=== PATIENT | male | born 1970 | race Caucasian/White ===

== ENCOUNTER 2024-02-05 07:38 | Day surgery (SDC) | payer OTHER, SELFPAY ==
[2024-01-14 11:45] VITALS: BMI 29.8
[2024-02-05 08:16] VITALS: BP 127/86; PULSE 82; RESP 20; TEMP 36.8; O2SAT 96
[2024-02-05] MEDS: LACTATED RINGERS 1,000 ML 150 ML IV CONT (08:18)
--- NOTE | 2024-02-05 08:32 | PM.HPGS ---
History of Present Illness History of Present Illness Consent: Risks, benefits, and alternatives have been discussed and questions answered. Patient agrees to proceed with procedure. Chief complaint: Neoplasm Screening Narrative: Jamie Solomon is a 53 year old male presents today for screening colonoscopy. Patient's current weight appetite and bowel movements are normal. Patient denies abdominal pain. He has had no bleeding. Family history contributory. Review of Systems Review of Systems: Review of Systems is noncontributory. PMFSH Family History Family History Mother Depression Family history of multiple sclerosis Hypertension Family history of elevated blood lipids Family history of diabetes mellitus in first degree relative Grandparent Diabetes mellitus Family history of malignant neoplasm of brain, Onset Age: 69 Father Hypertension Social History Social History Smoking status: Former smoker Second hand tobacco smoke exposure: No Smoking end date: 11/25/09 Additional smoking assessment comments: uses Nicorette gum Alcohol intake: current Drinks per week: 10 Substance use: current Substance use type: marijuana Other substance usage details: THC gummies Do You Feel Safe in your Home?: Yes Lack of Transportation: No Lack of Food: Never True Current Housing: I Have Housing Concerned About Future Housing: No Difficulty Paying Gas/Electric Bills: No Difficulty Paying for Meds: No Currently Unemployed: No Education: Trade/Vocational Certificate Difficulty w/ Childcare or Family Care: No Living arrangements: with family Occupation/Education: occupation 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 Gender identity (if verbalized by the patient): Male Meds Home Medications and Allergies Home Medications Medication Instructions Recorded Confirmed Type Nicorette 1 gum PO DIRECTED 10/20/19 02/05/24 History sildenafil (pulm.hypertension) 20 20 mg PO DAILY PRN sexual activity 12/20/23 02/05/24 Rx mg tablet #30 tabs zolpidem 6.25 mg tablet,extended 6.25 mg PO QHS #30 tabs 12/20/23 02/05/24 Rx release,multiphase Ambien 1 tab-cap PO DIRECTED 01/21/24 02/05/24 History Allergies Allergy/AdvReac Type Severity Reaction Status Date / Time No Known Allergies Allergy Verified 02/05/24 08:14 Vital Signs Vital Signs - 24 hr 02/05/24 08:16 Temperature 98.3 F Pulse Rate 82 Respiratory Rate 20 Blood Pressure 127/86 Pulse Oximetry 96 Oxygen Delivery Room Air Exam Narrative: Physical exam reveals patient to be alert. Vital signs stable. HEENT exam is unremarkable. Patient is anicteric. Lungs are clear to auscultation and percussion. Is without murmur or extra sounds. Abdomen bowel sounds are present soft nontender with no organomegaly. Digital external rectal exam is normal. Assessment and Plan Assessment and plan (1) Encounter for screening colonoscopy: Code(s): Z12.11 - Encounter for screening for malignant neoplasm of colon Status: Acute Assessment and Plan: Presents today for screening colonoscopy. He appears to be at average risk for colon polyps. Further recommendations may be given after endoscopy.
--- NOTE | 2024-02-05 09:13 | WPDANESEPPF ---
Anes - Initial Pre Proc Eval Procedure: Operation Date: 02/05/24 09:30 Proposed Procedures p Screening Colonoscopy - Antoni Ordaz MD Date/Time: 02/05/24 09:13 Surgeon: Antoni Ordaz MD Pre Op Diagnosis: Neoplasm Screening Patient Data Age: 53 Gender: M Height: 1.8 m Weight: 94.4 kg Last Vital Signs Temp 36.8 C 02/05/24 08:16 Pulse 82 02/05/24 08:16 Resp 20 02/05/24 08:16 BP 127/86 02/05/24 08:16 Pulse Ox 96 02/05/24 08:16 O2 Del Method Room Air 02/05/24 08:16 Allergies Allergy/AdvReac Type Severity Reaction Status Date / Time No Known Allergies Allergy Verified 02/05/24 08:14 Home Medications Medication Instructions Recorded Confirmed Type Nicorette 1 gum PO DIRECTED 10/20/19 02/05/24 History sildenafil (pulm.hypertension) 20 20 mg PO DAILY PRN sexual activity 12/20/23 02/05/24 Rx mg tablet #30 tabs zolpidem 6.25 mg tablet,extended 6.25 mg PO QHS #30 tabs 12/20/23 02/05/24 Rx release,multiphase Ambien 1 tab-cap PO DIRECTED 01/21/24 02/05/24 History Patient hx anesthesia problems: none Family hx anesthesia problems: none Results Review: All pre-operative results and documents have been reviewed as part of the pre-operative evaluation. PMFSH Family History Family History Mother Depression Family history of multiple sclerosis Hypertension Family history of elevated blood lipids Family history of diabetes mellitus in first degree relative Grandparent Diabetes mellitus Family history of malignant neoplasm of brain, Onset Age: 69 Father Hypertension Social History Social History Smoking status: Former smoker Second hand tobacco smoke exposure: No Smoking end date: 11/25/09 Additional smoking assessment comments: uses Nicorette gum Alcohol intake: current Drinks per week: 10 Substance use: current Substance use type: marijuana Other substance usage details: THC gummies Do You Feel Safe in your Home?: Yes Lack of Transportation: No Lack of Food: Never True Current Housing: I Have Housing Concerned About Future Housing: No Difficulty Paying Gas/Electric Bills: No Difficulty Paying for Meds: No Currently Unemployed: No Education: Trade/Vocational Certificate Difficulty w/ Childcare or Family Care: No Living arrangements: with family 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/Education: occupation 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 Informed Consent: The patient's anesthetic plan and its attendant risks and benefits were discussed with the patient/family/POA. Questions were solicited and answers provided to the satisfaction of the patient/family/POA.
[2024-02-05 09:34] VITALS: BP 137/92; PULSE 77; RESP 14; O2SAT 97
[2024-02-05 09:44] VITALS: BP 119/77; PULSE 73; RESP 20; O2SAT 99
[2024-02-05 09:54] VITALS: BP 121/85; PULSE 68; RESP 20; O2SAT 99
--- NOTE | 2024-02-05 11:03 | WPDANESPN ---
Anes - Prog Note Post-Op Date/Time: 02/05/24 11:03 Cardiovascular status: normal Respiratory status: normal Airway patency: baseline Mental status: baseline Post-Op hydration status: normal Vital Signs: Last Vital Signs Temp 36.8 C 02/05/24 08:16 Pulse 68 02/05/24 09:54 Resp 20 02/05/24 09:54 BP 121/85 02/05/24 09:54 Pulse Ox 99 02/05/24 09:54 O2 Del Method Room Air 02/05/24 09:54 Pain Score (VAS): 0 I/O: Intake & Output 02/04/24 02/05/24 02/05/24 23:59 07:59 15:59 Intake Total 500 Balance 500 Patient Feedback: Patient satisfied with anesthetic care.
== END 2024-02-05 10:05 | disposition home or self-care (01) ==
PROVIDERS: PCP Family Medicine; Visit Provider Internal Medicine Gastroenterology
PROC: 0DJD8ZZ Inspection of Lower Intestinal Tract, Via Natural or Artificial Opening Endoscopic (ICD-10-PCS; CPT 45378; principal; 2024-02-05 09:30)
DX: Z12.11 Encounter for screening for malignant neoplasm of colon (principal); D12.5 Benign neoplasm of sigmoid colon; K57.30 Diverticulosis of large intestine without perforation or abscess without bleeding
CPT/HCPCS: 45385

== ENCOUNTER 2024-02-05 07:42 | Outpatient (NON) | payer OTHER, SELFPAY | END 2024-02-05 07:43 | disposition home or self-care (01) | LOC: ANHLAB 02-06 07:43 | PROVIDERS: PCP Family Medicine; Visit Provider Internal Medicine Gastroenterology | DX: Z12.11 Encounter for screening for malignant neoplasm of colon (principal); D12.5 Benign neoplasm of sigmoid colon | CPT/HCPCS: 88305 ==

== ENCOUNTER 2024-11-19 13:04 | Inpatient (IN) | payer OTHER, SELFPAY ==
--- NOTE | ~2024-11-19 | CT_ITS ---
CT abdomen pelvis wo con Ordering provider: Soniya Cunningham MD History: 54 years Male with . abdomen pain; febrile . Comparison: November 21, 2024 Technique: CT abdomen and pelvis February the IV and without oral contrast. Automated exposure contro l and iterative reconstruction technique were employed. The dose-length product was 659.34 mGy-cm. Findings: VISUALIZED LOWER CHEST: Dependent atelectatic changes. UPPER ABDOMINAL ORGANS: Liver: Normal. Minimal Fluid around the liver. Gallbladder: Normal. Spleen: Normal. Stomach/duodenum: Normal. Pancreas: Normal. Adrenals: Normal. Kidneys: Left parapelvic cyst is seen in the left side measuring 2.3 cm. PELVIC ORGANS: The bladder is underfilled with thickened wall. Evaluation for cystitis advised.. BOWEL AND MESENTERY: Colon: sigmoid diverticulitis is noted with surrounding fat stranding. Previously seen abscess is devante ined in the interval with drainage tubes seen in the left side of the abdomen. Tiny air bubbles are s een in the upper abdomen in the area of the descending colon. fat stranding is seen in the left parac olic gutter area.. Normal appendix. Small Bowel: Dilated small bowel loops is seen suggestive of ileus. Mechanical obstruction is less li manjit. Follow-up advised. Peritoneum/mesentery: . No mesenteric lymphadenopathy. RETROPERITONEUM: Mild atheromatous disease of the abdominal aorta. No retroperitoneal lymphadenopat hy. MUSCULOSKELETAL: Superficial soft tissues: The superficial soft tissues are normal. Bones: Age appropriate degenerative changes of the spine. IMPRESSION: 1. Sigmoid diverticulitis with previously seen abscesses in the area. Left drainage catheter is seen . Minimal fat stranding in the left paracolic gutter. Early peritonitis should be considered. Clinica l correlation advised. 2. Minimal air in the abdomen with fluid around the liver. 3. Dilated small bowel loops suggestive of ileus. Follow-up advised. Reviewed, dictated and finalized at location A. ATTENDANT IMPRESSION: 1. Sigmoid diverticulitis with previously seen abscesses in the area. Left devante inage catheter is seen. Minimal fat stranding in the left paracolic gutter. Ear ly peritonitis should be considered. Clinical correlation advised. 2. Minimal air in the abdomen with fluid around the liver. 3. Dilated small bowel loops suggestive of ileus. Follow-up advised.
--- NOTE | ~2024-11-19 | CT_ITS ---
EXAMINATION: CT guide absc cath placement DATE: 11/23/2024 14:11 INDICATION: Sigmoid diverticulitis with abscess. TECHNIQUE: The procedure including the risks, benefits, and alternatives was discussed with the patie nt. Risks discussed included bleeding and infection. The patient understood the risks and benefits an d agreed to proceed. The skin overlying the abdomen was prepped and draped in usual sterile fashion. Anesthetic was administered with 1% lidocaine subcutaneously. Moderate sedation was achieved with 1 mg Versed IV and 100 mcg fentanyl IV. An 18 gauge trochar needle was inserted into the perisigmoid ab scess with CT guidance. The needle was exchanged over a wire for 5 Lao, 7 Lao, and 9 Lao dil ators and then for an 8.5 Lao pigtail catheter. The catheter was stitched to the skin, and a steri le dressing was applied. The mA was adjusted according to patient size. Iterative reconstruction tech nique was employed. The dose-length product was 307.94 mGy-cm. There were no immediate complications. FINDINGS: CT images demonstrate the catheter within the perisigmoid abscess. 5 mL fluid was aspirated for testing. IMPRESSION: 1. Successful CT-guided perisigmoid abscess drainage. 2. 5 mL of opaque, burks fluid was sent for aerobic and anaerobic cultures. Reviewed, dictated and finalized at location A. NTORY CONTROL PLANNER
--- NOTE | ~2024-11-19 | XR_ITS ---
XR abdomen gastric tube insert Ordering provider: Jerson Moran MD History: . NG tube placement . Comparison: None. FINDINGS/impression: BOWEL: Nasogastric tube with the tip in the fundus of the stomach. Nonobstructive bowel gas pattern. Postoperative changes in the abdomen. Reviewed, dictated and finalized at location A. L BONDING PRESS OPERATOR
--- NOTE | ~2024-11-19 | XR_ITS ---
EXAMINATION: XR chest PICC line DATE: 11/27/2024 12:10 INDICATION: Central line placement. TECHNIQUE: A single frontal view of the chest was obtained. COMPARISON: Chest single view 11/24/2024, CT abdomen and pelvis 11/23/2024 FINDINGS: There are airspace opacities in the lower lung zones. No pleural effusion or pneumothorax. The heart size is normal. A right upper extremity peripherally inserted central venous catheter (PICC ) is seen with tip at the superior cavoatrial junction. The nasogastric tube tip is beyond the inferi or margin of the radiograph, but at least to the stomach. IMPRESSION: 1. PICC tip at the superior cavoatrial junction. 2. Worsened airspace opacities in the lower lung zones, likely atelectasis. Reviewed, dictated and finalized at location A. T COUNTER CLERK
--- NOTE | ~2024-11-19 | CT_ITS ---
EXAMINATION: CT abdomen pelvis w con DATE: 11/21/2024 23:53 INDICATION: Recurrent lower abdominal pain. Diverticulitis. TECHNIQUE: Computed tomography (CT) of the abdomen and pelvis was performed with 100 mL Omnipaque-350 intravenous contrast. Automated exposure control and iterative reconstruction technique were employe d. The dose-length product was 615.98 mGy-cm. COMPARISON: 11/19/24 FINDINGS: Mild dependent atelectasis in bilateral lower lobes. Heart size is normal. No pericardial or pleural effusion. There are some wall thickening in the distal esophagus suggestive of esophagitis. Liver, ga llbladder, spleen, pancreas and bilateral adrenal glands are normal. Bilateral renal cysts the larges t on the left measuring 2.7 cm. There is persistent wall thickening centered at the mid sigmoid colon . There is prominent inflammatory stranding surrounding the segment of sigmoid colon as well as immed iately adjacent 5.1 x 2.6 cm abscess cavity containing primarily gas but small amount of dependently layering fluid. Small amount of additional nonloculated gas tracking within the more proximal sigmoid mesentery. There is additional small amount of nonloculated free fluid in the deep pelvis. There is fluid scattered throughout nondilated small bowel suggestive of a reactive ileus. Additional fluid sc attered throughout the colon consistent with diarrhea. Decompressed bladder is unremarkable. No patho logically enlarged abdominal or pelvic lymphadenopathy. Moderate to severe lumbar spondylosis. IMPRESSION: 1. Perforated sigmoid diverticulitis gas and fluid within a 5.1 x 2.6 cm increasingly organized-appea ring abscess within the immediately adjacent sigmoid mesentery. Reviewed, dictated and finalized at location A. LE LINING STITCHER IMPRESSION: 1. Perforated sigmoid diverticulitis gas and fluid within a 5.1 x 2.6 cm increa singly organized-appearing abscess within the immediately adjacent sigmoid mese ntery.
--- NOTE | ~2024-11-19 | XR_ITS ---
Upright portable view of the abdomen Clinical history: NG tube placement Findings: NG tube in satisfactory position. Bowel gas pattern is nonspecific. No evidence for obstruc tion or free air. No abnormal mass lesion or calcification is seen. Osseous structures are intact. Impression: NG tube in satisfactory position. Reviewed, dictated and finalized at [facility]. LACTATION Impression: NG tube in satisfactory position.
--- NOTE | ~2024-11-19 | XR_ITS ---
Portable chest x-ray Comparison: None Clinical History: Preoperative clearance Findings: Lungs are clear, without focal consolidation or pleural effusion. There is linear scarring left lung base. Cardiomediastinal silhouette is unremarkable. Bones and soft tissues are unremarkab le. Impression: Linear scarring left lung base, otherwise clear lungs. Reviewed, dictated and finalized at location . D WING AIRCRAFT CREW CHIEF Impression: Linear scarring left lung base, otherwise clear lungs.
--- NOTE | ~2024-11-19 | CT_ITS ---
EXAMINATION: CT abdomen pelvis w con DATE: 11/19/2024 16:50 INDICATION: Lower abdominal pain TECHNIQUE: Computed tomography (CT) of the abdomen and pelvis was performed with 100 mL Omnipaque-350 intravenous contrast. Automated exposure control and iterative reconstruction technique were employe d. The dose-length product was 552.12 mGy-cm. COMPARISON: 08/29/2018 FINDINGS: Lung bases are clear. Heart size is normal. No pericardial or pleural effusion. Liver, gallbladder, s pleen, pancreas and bilateral adrenal glands are normal. 1.4 cm intraparenchymal cyst at the right ki dney and 2.8 cm parapelvic cyst at the left kidney. There is inflammatory stranding surrounding a 4.8 x 2.0 cm loculated collection of gas within the sigmoid mesentery with additional smaller foci of ga s extending throughout the mesenteric fat the more proximal sigmoid and distal descending colon. Ther e is wall thickening at the immediately more caudal sigmoid colon where there is a small region of fl uid signal suggesting a diverticula perforated diverticulitis. Remainder of the bowels including the appendix are normal. Bladder is normal. No fluid collections to suggest abscess or other nonloculated free intraperitoneal gas or fluid. No pathologically enlarged abdominal or pelvic lymphadenopathy. S mall fat-containing umbilical hernia. Moderate to severe lumbar spondylosis. IMPRESSION: 1. Likely perforated sigmoid diverticulitis with loculated free intraluminal gas within the sigmoid a nd distal descending colon mesentery. No abscess. Reviewed, dictated and finalized at location B. ISSIONED SALES ASSOCIATE IMPRESSION: 1. Likely perforated sigmoid diverticulitis with loculated free intraluminal ga s within the sigmoid and distal descending colon mesentery. No abscess.
--- NOTE | ~2024-11-19 | XR_ITS ---
Upright portable view of the abdomen Clinical history: NG tube placement Findings: NG tube in satisfactory position. Bowel gas pattern is nonspecific. No evidence for obstruc tion or free air. No abnormal mass lesion or calcification is seen. Osseous structures are intact. Impression: NG tube in satisfactory position. Reviewed, dictated and finalized at [facility]. NGING MACHINE TENDER Impression: NG tube in satisfactory position.
[2024-11-19 13:05] VITALS: BP 127/92; PULSE 100; RESP 20; TEMP 36.2; O2SAT 100
--- NOTE | 2024-11-19 14:24 | ED_ITS ---
HPI - Abdominal Pain General Chief Complaint: Abdominal Pain Stated Complaint: abd pain Time Seen by Provider: 11/19/24 14:24 Focused HPI: This is a 54 year old male that presents to the ER for abdominal pain and constipation. Ongoing over the last several days. Pain is in the mid lower abdomen. Tried taking laxatives without improvement. Is unable to eat due to pain. GENERAL: Well-appearing, well-nourished, and in no acute distress. HEAD: Normocephalic, atraumatic. CHEST: Clear to auscultation. ?No respiratory distress. HEART: Regular rate and rhythm.? NEURO: ?Alert and oriented x3. Patient screened in triage and initial orders placed.? ?Additional care and disposition to be based upon?diagnostic testing and treatment. Related Data Home Medications ?Medication ?Instructions ?Recorded ?Confirmed ?Last Taken ?Type Nicorette 1 gum PO DIRECTED 10/20/19 11/19/24 Unknown History Allergies Allergy/AdvReac Type Severity Reaction Status Date / Time No Known Allergies Allergy Verified 02/05/24 08:14 Review of Systems 2 Review of Systems: CONSTITUTIONAL: Denies fever GASTROINTESTINAL: Reports abdominal pain, nausea. Denies vomiting All systems reviewed & are unremarkable except as noted in HPI and below PMFSH Past Medical History Medical History (Updated 11/23/24 @ 21:18 by Leticia Gunter PA-C) Chronic insomnia Erectile dysfunction Family History Family History Mother Depression Family history of multiple sclerosis Hypertension Family history of elevated blood lipids Family history of diabetes mellitus in first degree relative Grandparent Diabetes mellitus Family history of malignant neoplasm of brain, Onset Age: 69 Father Hypertension Social History Social History Smoking status: Never smoker Second hand tobacco smoke exposure: No Smoking end date: 11/25/09 Additional smoking assessment comments: uses Nicorette gum Alcohol intake: current Drinks per week: 8 Substance use: never Substance use type: marijuana Other substance usage details: THC gummies Do You Feel Safe in your Home?: Yes Lack of Transportation: No Lack of Food: Never True Current Housing: I Have Housing Concerned About Future Housing: No Difficulty Paying Gas/Electric Bills: No Difficulty Paying for Meds: No Currently Unemployed: No Education: Trade/Vocational Certificate Difficulty w/ Childcare or Family Care: No Living arrangements: with family Occupation/Education: occupation 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 HEAD: Normocephalic, atraumatic. EYES: EOMI. CHEST: Clear to auscultation. No respiratory distress. No wheezes rales or rhonchi HEART: Regular rate and rhythm. No murmur heard. Normal peripheral pulses. ABDOMEN: Soft, nondistended, normal active bowel sounds. Tender to palpation throughout the abdomen, without guarding EXTREMITIES: Normal range of motion. No edema. SKIN: Warm, dry, no rash. NEURO: No focal deficits. Alert and oriented x3. PSYCH: Normal mood and affect Course Course Emergency Course: patient updated on his workup and need for admission Consultations Consultation #1: Spoke with Dr. Moran about patient and workup. Patient will be NPO except ice chips. Continue IV fluids, antibiotics, pain medication as needed Vital Signs Vital signs: Vital Signs Temperature 97.2 F L 11/19/24 13:05 Pulse Rate 100 11/19/24 13:05 Respiratory Rate 20 11/19/24 13:05 Blood Pressure 127/92 H 11/19/24 13:05 Pulse Oximetry 100 11/19/24 13:05 Oxygen Delivery Room Air 11/19/24 13:05 Temperature 102.5 F H 11/23/24 19:57 Pulse Rate 90 11/23/24 18:41 Respiratory Rate 16 11/23/24 18:41 Blood Pressure 140/82 11/23/24 18:41 Pulse Oximetry 95 11/23/24 18:41 Oxygen Delivery Room Air 11/23/24 14:15 Oxygen Flow Rate 2 11/23/24 14:10 MDM - Abdominal Pain MDM Narrative Medical decision making narrative: Patient presents the emergency department for abdominal pain ongoing over the last couple of days. He is afebrile and nontoxic appearing. His vitals are stable. CBC with leukocytosis to 27.7. Metabolic panel without concerning findings. Lactic acid is not elevated. CT abdomen and pelvis shows diverticulitis with perforation. Spoke with Dr. Moran about patient and workup. Patient will be NPO except ice chips. Continue IV fluids, antibiotics, pain medication as needed Differential Diagnosis Differential diagnosis: Likely calculus of kidney, constipation and diverticulitis Lab Data Attestation: I reviewed the patient's lab results. 11/23/24 20:31 11/23/24 20:31 Labs: Lab Results 11/19/24 11/19/24 11/19/24 Range/Units 14:59 15:14 17:21 WBC 27.7 H (4.5-10.0) K/mm3 RBC 5.67 (4.6-6.20) M/mm3 Hgb 16.8 (14.0-18.0) g/dL Hct 49.5 (42.0-52.0) % MCV 87.3 (80-100) fl MCH 29.6 (26-34) pg MCHC 33.9 (32-36) g/dl RDW 14.0 (11.5-14.5) % Plt Count 159 (150-375) k/mm3 MPV 11.2 H (7.4-10.4) fl Immature Gran % (Auto) 0.2 (0-0.5) % Neut % (Auto) 22.2 L (45.5-73.1) % Lymph % (Auto) 74.3 H (18.3-44.2) % [place] % (Auto) 2.3 L (2.6-8.5) % Eos % (Auto) 0.8 (0-4.4) % Baso % (Auto) 0.2 (0.2-1.2) % Lymph # (Auto) 20.57 H (0.9-3.2) K/mm3 [place] # (Auto) 0.6 (0.1-0.6) K/mm3 Eos # (Auto) 0.2 (0-0.3) K/mm3 Baso # (Auto) 0.1 (0.0-0.1) K/mm3 Abs Immat Gran (auto) 0.06 H (0.00-0.031) K/mm3 Absolute Neuts (auto) 6.2 (1.3-6.7) K/mm3 Absolute Nucleated RBC 0.000 (0.0-0.012) K/mm3 Nucleated RBC % 0.0 (0.0-0.2) % Smudge Cells Present Platelet Estimate Adequate (Adequate) Anisocytosis 1+ Tear Drop Cells 1+ Schistocytes None seen Sodium 135 L (137-145) mmol/L Potassium 3.5 (3.4-5.0) mmol/L Chloride 103 (98-107) mmol/L Carbon Dioxide 26 (22-30) mmol/L Anion Gap 6 (4-12) mmol/L BUN 19 (9-20) mg/dL Creatinine 1.20 (0.7-1.3) mg/dL Estim Creat Clear Calc 68 ml/min Estimated GFR > 60 (59 - ) Glucose 125 H (65-110) mg/dL Lactic Acid 1.6 (0.7-2.0) mmol/L Calcium 9.6 (8.4-10.2) mg/dL Total Bilirubin 1.3 (0.2-1.3) mg/dL AST 39 (17-59) U/L ALT 39 (6-50) U/L Alkaline Phosphatase 87 (38-126) U/L Total Protein 8.0 (6.3-8.2) g/dL Albumin 4.5 (3.5-5.1) g/dL Lipase 32 (23-300) U/L Urine Color Dark yellow (Yellow) Urine Appearance Clear (Clear) Urine pH 5.5 (5.0-9.0) Ur Specific [place] 1.033 (1.001-1.035) Urine Protein 2+ H (Negative) mg/dL Urine Glucose (UA) Trace H (Negative) mg/dL Urine Ketones 1+ H (Negative) mg/dL Ur Blood (Man) Trace (Negative) Urine Nitrate Negative (Negative) Urine Bilirubin 1+ H (Negative) Urine Urobilinogen 1.0 (<2.0) mg/dL Add Ur Microanalysis Reviewed Leukocyte Esterase Rfl Negative (Negative) MAHSA/UL Urine RBC 0-2 (0-2) /hpf Urine WBC 0-5 (0-3) /hpf Ur Squamous Epith Cells Occasional (Few) /hpf Urine Bacteria None seen /hpf Urine Casts 3-5 Imaging Data Radiologist's impression: ITS Impressions Catheter Placement CT 11/23/24 14:32 IMPRESSION: 1. Successful CT-guided perisigmoid abscess drainage. 2. 5 mL of opaque, burks fluid was sent for aerobic and anaerobic cultures. Abdomen/Pelvis CT 11/23/24 19:27 IMPRESSION: 1. Sigmoid diverticulitis with previously seen abscesses in the area. Left drainage catheter is seen. Minimal fat stranding in the left paracolic gutter. Early peritonitis should be considered. Clinical correlation advised. 2. Minimal air in the abdomen with fluid around the liver. 3. Dilated small bowel loops suggestive of ileus. Follow-up advised. Critical Care Time Critical Care Time Critical Care Time: No Discharge Plan Discharge Clinical Impression: Diverticulitis Patient Disposition: Still a Patient Condition: Serious
[2024-11-19 15:14] LABS: Basophils Absolute Auto 0.1 K/mm3 (0.0-0.1); Basophils Percent Auto 0.2 % (0.2-1.2); Eosinophils Absolute Auto 0.2 K/mm3 (0-0.3); Eosinophils Percent Auto 0.8 % (0-4.4); Hematocrit 49.5 % (42.0-52.0); Hemoglobin 16.8 g/dL (14.0-18.0); Immature Granulocyte Absolute 0.06 K/mm3 (0.00-0.031); Immature Granulocyte Percent A 0.2 % (0-0.5); Lymphocytes Absolute Auto 20.57 K/mm3 (0.9-3.2); Lymphocytes Percent Auto 74.3 % (18.3-44.2); Mean Corpuscular HGB Conc 33.9 g/dl (32-36); Mean Corpuscular Hemoglobin 29.6 pg (26-34); Mean Corpuscular Volume 87.3 fl (80-100); Mean Platelet Volume 11.2 fl (7.4-10.4); Monocytes Absolute Auto 0.6 K/mm3 (0.1-0.6); Monocytes Percent Auto 2.3 % (2.6-8.5); Neutrophils Absolute Auto 6.2 K/mm3 (1.3-6.7); Neutrophils Percent Auto 22.2 % (45.5-73.1); Platelet Count Result 159 k/mm3 (150-375); Red Blood Count 5.67 M/mm3 (4.6-6.20); White Blood Count 27.7 K/mm3 (4.5-10.0)
[2024-11-19 15:23] LABS: Alanine Aminotransferase 39 U/L (6-50); Albumin Level 4.5 g/dL (3.5-5.1); Alkaline Phosphatase 87 U/L (38-126); Anion Gap 6 mmol/L (4-12); Aspartate Amino Transferase 39 U/L (17-59); Bilirubin,Total 1.3 mg/dL (0.2-1.3); Blood Urea Nitrogen 19 mg/dL (9-20); Calcium 9.6 mg/dL (8.4-10.2); Carbon Dioxide 26 mmol/L (22-30); Chloride 103 mmol/L (98-107); Estimated CRCL calculation 68 ml/min; Estimated Glomerular Filt Rate > 60; Glucose 125 mg/dL (65-110); Lipase 32 U/L (23-300); Potassium 3.5 mmol/L (3.4-5.0); Sodium 135 mmol/L (137-145)
[2024-11-19 15:47] LABS: Anisocytosis 1+; Platelet Estimate Adequate (Adequate); Schistocytes None Seen; Smudge Cells PRESENT; Tear Drop Cells 1+
[2024-11-19 16:02] LABS: Bacteria Urine None Seen /hpf; Need Manual Microscopic Reviewed; RBC Urine 0-2 /hpf (0-2); Squamous Epithelial Cell Urine Occasional /hpf (Few); WBC Urine 0-5 /hpf (0-3)
[2024-11-19 16:12] LABS: Add Urine Microscopic? YES; Appearance Urine Clear (Clear); Bilirubin Urine 1+ (Negative); Blood Urine Trace (Negative); Color Urine Dark Yellow (Yellow); Glucose Urine UA Trace mg/dL (Negative); Ketones Urine 1+ mg/dL (Negative); Leukocyte Esterase Ur Negative LEU/UL (Negative); Nitrate Urine Negative (Negative); Protein Urine 2+ mg/dL (Negative); Specific Grav Ur 1.033 (1.001-1.035); pH Urine 5.5 (5.0-9.0)
[2024-11-19 17:10] VITALS: BP 147/97; PULSE 98; RESP 18; O2SAT 99
[2024-11-19] MEDS: PIPERACILLN/TAZ 3.375GM/NS50ML 3.375 GM/50 ML BAG IVPB (17:30)
[2024-11-19 17:33] VITALS: BP 141/90; PULSE 98; RESP 19; O2SAT 98
[2024-11-19 17:38] LABS: Lactic Acid Reflex 1.6 mmol/L (0.7-2.0)
[2024-11-19] MEDS: SODIUM CHLORIDE 0.9% IV 1,000 ML 125 ML IV CONT (17:47)
[2024-11-19 18:53] VITALS: BP 137/92; PULSE 94; RESP 16; TEMP 36.8; O2SAT 97
[2024-11-19 18:54] VITALS: BMI 27.5
--- NOTE | 2024-11-19 19:17 | PM.IMHP ---
H&P: HPI History of Present Illness Date/Time: 11/19/24 19:17 Chief Complaint: Abdominal pain Narrative: Patient is a 54-year-old man who had been previously very healthy. He has never had any abdominal surgery. He had a colonoscopy about 8 months ago which showed mild diverticulosis of the sigmoid colon and a pedunculated tubular adenoma that was removed in the sigmoid colon. Three days ago, he started having some crampy abdominal pain in the umbilical area and just below the umbilicus. He took some laxatives and had a bowel movement. He felt better but the pain did not go away. After eating 2 days later the pain recurred. He again took some laxatives and had a bowel movement. The pain resolved. The pain has not come back but the patient feels that eating causes the pain and he has not eat at all today. He came to the emergency room because when he eats he gets this lower mid abdominal pain. He was seen in the emergency room and found to have a white blood cell count of 27,700. He had a CT scan of the abdomen and pelvis which showed probable acute diverticulitis with a 4.8 cm loculated pocket of air in the sigmoid mesentery. There were some other smaller loculations of air in the mesentery as well. As mentioned before, patient does not have abdominal pain at all. He is admitted now with diverticulitis with perforation. Review of Systems Review of Systems: All systems reviewed & are unremarkable except as noted in HPI and below (HPI) [facility] Past Medical History Medical History (Updated 11/19/24 @ 19:35 by Jerson Moran MD) Chronic insomnia Erectile dysfunction Family History Family History Mother Depression Family history of multiple sclerosis Hypertension Family history of elevated blood lipids Family history of diabetes mellitus in first degree relative Grandparent Diabetes mellitus Family history of malignant neoplasm of brain, Onset Age: 69 Father Hypertension Social History Social History Smoking status: Former smoker Second hand tobacco smoke exposure: No Smoking end date: 11/25/09 Additional smoking assessment comments: uses Nicorette gum Alcohol intake: current Drinks per week: 10 Substance use: current Substance use type: marijuana Other substance usage details: THC gummies Do You Feel Safe in your Home?: Yes Lack of Transportation: No Lack of Food: Never True Current Housing: I Have Housing Concerned About Future Housing: No Difficulty Paying Gas/Electric Bills: No Difficulty Paying for Meds: No Currently Unemployed: No Education: Trade/Vocational Certificate Difficulty w/ Childcare or Family Care: No Living arrangements: with family 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/Education: 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 Gender identity (if verbalized by the patient): Male Meds Home Medications and Allergies Home Medications ?Medication ?Instructions ?Recorded ?Confirmed ?Type Nicorette 1 gum PO DIRECTED 10/20/19 02/05/24 History sildenafil (pulm.hypertension) 20 20 mg PO DAILY PRN sexual activity 12/20/23 02/05/24 Rx mg tablet #30 tabs zolpidem 6.25 mg tablet,extended 6.25 mg PO QHS #30 tabs 12/20/23 02/05/24 Rx release,multiphase Ambien 1 tab-cap PO DIRECTED 01/21/24 02/05/24 History Allergies Allergy/AdvReac Type Severity Reaction Status Date / Time No Known Allergies Allergy Verified 02/05/24 08:14 Vital Signs Vital Signs - 24 hr 11/19/24 13:05 11/19/24 17:10 11/19/24 17:33 Temperature 36.2 C L Pulse Rate 100 98 98 Respiratory Rate 20 18 19 Blood Pressure 127/92 H 147/97 H 141/90 H Pulse Oximetry 100 99 98 Oxygen Delivery Room Air 11/19/24 18:53 Temperature 36.8 C Pulse Rate 94 Respiratory Rate 16 Blood Pressure 137/92 H Pulse Oximetry 97 Oxygen Delivery Exam Const: General: comfortable, no acute distress, alert and awake HENMT: Head: normocephalic and atraumatic Mouth: Yes Normal oral and palatal mucosa present Eyes: Conjunctivae: conjunctivae normal Pupils: Equal, round and reactive pupils present EOM: EOMs intact bilaterally Neck: Neck: normal visual inspection, no lymphadenopathy and nontender Resp: Effort & Inspection: normal respiratory effort Auscultation: clear to auscultation bilaterally Cardio: Rate: regular rate Rhythm: regular rhythm Heart sounds: no gallops, no murmurs and no rubs GI: Inspection: no abdominal wall ecchymosis, non-distended, scaphoid, no scars and visible herniation (Small umbilical) GI Palp: Yes Soft to palpation, Yes Tenderness to palpation present (GI) (Left lower quadrant and suprapubic with guarding), Yes Guarding due to palpation present (GI), No Hepatomegaly present, No Splenomegaly present and Yes Hernia present umbilical < 3 cm (Small and non reducible) Skin: Lesions: no lesions Rashes: no rashes Neuro: General: no focal motor deficits and CN's II-XI intact bilaterally Cranial nerves: Yes Equal, round and reactive pupils present, Yes Bilaterally intact EOM present, Yes facial symmetry and Yes Midline tongue present Speech: normal speech Motor exam (neuro): 5/5 motor strength present throughout and Motor abnormalities not present Extrem: General: no clubbing, cyanosis or edema and edema Psych: Affect: normal affect Thought process: Normal thought process present Insight: Good insight present (Psych) H&P: Results Labs Labs: Short CBC 11/19/24 Range/Units 14:59 WBC 27.7 H (4.5-10.0) K/mm3 Hgb 16.8 (14.0-18.0) g/dL Hct 49.5 (42.0-52.0) % Plt Count 159 (150-375) k/mm3 BMP 11/19/24 14:59 Sodium 135 L Potassium 3.5 Chloride 103 Carbon Dioxide 26 BUN 19 Creatinine 1.20 Glucose 125 H Calcium 9.6 Liver Function 11/19/24 Range/Units 14:59 Total Bilirubin 1.3 (0.2-1.3) mg/dL AST 39 (17-59) U/L ALT 39 (6-50) U/L Alkaline Phosphatase 87 (38-126) U/L Albumin 4.5 (3.5-5.1) g/dL Urine 11/19/24 Range/Units 15:14 Urine Color Dark yellow (Yellow) Urine Appearance Clear (Clear) Urine pH 5.5 (5.0-9.0) Ur Specific [place] 1.033 (1.001-1.035) Urine Protein 2+ H (Negative) mg/dL Urine Glucose (UA) Trace H (Negative) mg/dL Imaging CT scan - abdomen: Attestation: I personally reviewed and interpreted this imaging study as follows: (CT scan abdomen and pelvis) My impression: Diverticulitis with perforation, mesenteric pockets of air Radiologist's impression: Same Assessment and Plan Assessment and plan (1) Diverticulitis of large intestine with perforation: Qualifiers: Diverticulitis bleeding: without bleeding Qualified Code(s): K57.20 - Diverticulitis of large intestine with perforation and abscess without bleeding Code(s): K57.20 - Diverticulitis of large intestine with perforation and abscess without bleeding Status: Acute Assessment and Plan: Patient pain-free at present but extremely tender with guarding. Will admit for IV Zosyn antibiotics and bowel rest. He can have meds with sips and a few ice chips as well. P.r.n. analgesics. Follow serial abdominal exam and labs. He had a negative colonoscopy last January. If this resolves without complications, he probably does not need delayed elective sigmoidectomy. Hopefully, no acute surgery will be needed either.
[2024-11-19 19:22] VITALS: BMI 27.5
[2024-11-19 20:30] VITALS: BP 127/69; PULSE 83; RESP 20; TEMP 37.4; O2SAT 98
--- NOTE | 2024-11-19 21:11 | ADMGEN ---
This patient, Jamie Solomon, was admitted to [facility] Surg Room 302-01. Patient/family oriented to hospital policies and general routines including ID bracelet, bed and alarms, visiting hours, pain management, procedures, bathroom and other care routines, personal items, smoking policy, room service/diet, and visiting hours. Information on how to activate the Rapid Response Team has been discussed. Patient/Family are encouraged to report perceived risks to care and to ask questions if they do not understand what they are told or what they should do.
[2024-11-19] MEDS: traZODone HCL 50 MG TABLET PO (21:57)
[2024-11-20] MEDS: PIPERACILLN/TAZ 3.375GM/NS50ML 3.375 GM/50 ML BAG IVPB ×5 (00:18→23:13)
[2024-11-20] MEDS: SODIUM CHLORIDE 0.9% IV 1,000 ML 125 ML IV CONT ×3 (01:50→18:05)
[2024-11-20 04:45] VITALS: BP 117/75; PULSE 85; RESP 18; TEMP 36.3; O2SAT 98
[2024-11-20 07:53] LABS: Hematocrit 42.6 % (42.0-52.0); Hemoglobin 14.3 g/dL (14.0-18.0); Mean Corpuscular HGB Conc 33.6 g/dl (32-36); Mean Corpuscular Hemoglobin 29.6 pg (26-34); Mean Corpuscular Volume 88.2 fl (80-100); Mean Platelet Volume 11.2 fl (7.4-10.4); Platelet Count Result 142 k/mm3 (150-375); Red Blood Count 4.83 M/mm3 (4.6-6.20); White Blood Count 21.2 K/mm3 (4.5-10.0)
[2024-11-20 08:09] LABS: Anion Gap 3 mmol/L (4-12); Blood Urea Nitrogen 17 mg/dL (9-20); Calcium 8.7 mg/dL (8.4-10.2); Carbon Dioxide 24 mmol/L (22-30); Chloride 109 mmol/L (98-107); Estimated CRCL calculation 73 ml/min; Estimated Glomerular Filt Rate > 60; Glucose 100 mg/dL (65-110); Potassium 3.5 mmol/L (3.4-5.0); Sodium 136 mmol/L (137-145)
[2024-11-20 09:32] LABS: Band Neutrophils Percent 0 % (0-6); Basophils Percent Manual 0 % (0-1); Eosinophils Absolute Manual 0.21 K/mm3 (0.02-0.50); Eosinophils Percent Manual 1 % (0-4); Lymphocytes Absolute Manual 16.53 K/mm3 (1.1-4.5); Lymphocytes Percent Manual 78 % (18-44); Monocytes Absolute Manual 1.06 K/mm3 (0.1-0.90); Monocytes Percent Manual 5 % (3-9); Neutrophils Absolute Manual 3.39 K/mm3 (1.3-6.7); Neutrophils Percent Manual 16 % (46-73); Total Cells Counted 100
[2024-11-20 09:33] LABS: Giant Platelets Present; Large Platelets Present; Platelet Estimate Adequate (Adequate)
[2024-11-20 09:35] LABS: Anisocytosis 1+
[2024-11-20 09:36] LABS: Schistocytes None Seen
--- NOTE | 2024-11-20 10:40 | WPDPN ---
Progress Note: A&P Assessment and Plan (1) Diverticulitis of large intestine with perforation: Qualifiers: Diverticulitis bleeding: without bleeding Qualified Code(s): K57.20 - Diverticulitis of large intestine with perforation and abscess without bleeding Code(s): K57.20 - Diverticulitis of large intestine with perforation and abscess without bleeding Status: Acute Assessment and Plan: Less tender today and white blood cell count decreased to 21,000. Continue bowel rest and IV Zosyn antibiotics. (2) Thrombocytopenia: Code(s): D69.6 - Thrombocytopenia, unspecified Status: Chronic Assessment and Plan: Platelet count barely low, 142,000 today. Last CBC in EHR also shows low platelet count 6 years ago of 127,000. Large and giant platelets noted on differential. Ask Hematology to see for consultation regarding giant platelets as well as lymphocytosis, smudge cells. (3) Lymphocytosis: Code(s): D72.820 - Lymphocytosis (symptomatic) Status: Chronic Assessment and Plan: Marked lymphocytosis noted on differential today. Also noted 6 years ago on CBC. Atypical lymphs and smudge cells also noted. Will get Hematology consult as noted. Subjective Date/time seen: 11/20/24 09:55 Interval history: Patient feels about the same as yesterday. As long as he is lying or sitting still, he really has no abdominal pain. When he turns over or moves, he does experience the lower abdominal midline pain that he was having in the emergency room yesterday. The pain is not as bad as it was after eating the couple of times that he ate last week. He did not like the trazodone as it made him feel anxious. He did take some of the Valium for this. He reports that he slept just fine. No problems with diarrhea, fever, nausea or vomiting. Review of Systems Review of Systems: All systems reviewed & are unremarkable except as noted in HPI and below (HPI) Exam Const: General: comfortable and no acute distress Orientation/consciousness: patient oriented x3 GI: Inspection: non-distended, scaphoid and visible herniation (Small umbilical as before) GI Palp: Yes Soft to palpation, Yes Tenderness to palpation present (GI) (Infraumbilical and suprapubic, less than yesterday evening. No guarding), No Guarding due to palpation present (GI) and No Rebound tenderness present Auscultation: absent bowel sounds Neuro: General: patient oriented x3 and no focal motor deficits Extrem: General: no calf tenderness and no edema Psych: Affect: normal affect Insight: Good insight present (Psych) Judgement: Good judgement present (Psych) Objective Data Vital Signs Vital Signs: Vital Signs - 24 hr 11/19/24 13:05 11/19/24 17:10 11/19/24 17:33 Temperature 36.2 C L Pulse Rate 100 98 98 Respiratory Rate 20 18 19 Blood Pressure 127/92 H 147/97 H 141/90 H Pulse Oximetry 100 99 98 Oxygen Delivery Room Air 11/19/24 18:53 11/19/24 20:30 11/20/24 04:45 Temperature 36.8 C 37.4 C 36.3 C L Pulse Rate 94 83 85 Respiratory Rate 16 20 18 Blood Pressure 137/92 H 127/69 117/75 Pulse Oximetry 97 98 98 Oxygen Delivery Persistent mild tachycardia Intake/Output Intake/Output: Intake & Output 11/17/24 11/18/24 11/19/24 11/20/24 23:59 23:59 23:59 23:59 Intake Total 50 2160.4 Balance 50 2160.4 Meds/Results Medications: Active Medications Generic Name Dose Route Start Last Admin Trade Name Freq PRN Reason Stop Dose Admin Diazepam 5 mg 11/19/24 19:19 Diazepam (*Crx) 5 Mg Tablet PO QHS PRN Anxiety Sodium Chloride 1,000 mls @ 125 mls/hr 11/19/24 17:35 11/20/24 09:31 Normal Saline Iv IV CONT 125 mls/hr .Q8H LORETA Administration Piperacillin/Tazobactam/Dextrose 3.375 gm in 50 mls @ 100 mls/hr 11/20/24 00:00 11/20/24 05:40 Zosyn 3.375 Gm/Ns 50 Ml IVPB 100 mls/hr Q6H LORETA Administration Ibuprofen 800 mg in 200 mls @ 385.233 mls/hr 11/19/24 19:26 Caldolor 800 Mg/200 Ml IVPB Q6H PRN PAIN 1-3 Morphine Sulfate 4 mg 11/19/24 17:35 Morphine Sulfate (*Crx) 4 Mg/Ml Inj IV PUSH Q2H PRN Pain Rated 7-10 Morphine Sulfate 2 mg 11/19/24 17:37 Morphine Sulfate (*Crx) 2 Mg/Ml Inj IV PUSH Q2H PRN Pain Rated 4-6 Nicotine Polacrilex 2 mg 11/20/24 07:50 Nicotine (*Pbkc) 2 Mg Gum PO Q2H PRN NICOTINE CRAVINGS Trazodone HCl 50 mg 11/19/24 19:18 11/19/24 21:57 Trazodone Hcl 50 Mg Tablet PO 50 mg HS PRN Administration Insomnia Radiology Results: ITS Impressions Abdomen/Pelvis CT 11/19/24 16:54 IMPRESSION: 1. Likely perforated sigmoid diverticulitis with loculated free intraluminal gas within the sigmoid and distal descending colon mesentery. No abscess. Labs Labs: Laboratory Results - last 24 hr 11/19/24 11/19/24 11/19/24 14:59 15:14 17:21 WBC 27.7 H RBC 5.67 Hgb 16.8 Hct 49.5 MCV 87.3 MCH 29.6 MCHC 33.9 RDW 14.0 Plt Count 159 MPV 11.2 H Immature Gran % (Auto) 0.2 Neut % (Auto) 22.2 L Lymph % (Auto) 74.[address] % (Auto) 2.3 L Eos % (Auto) 0.8 Baso % (Auto) 0.2 Lymph # (Auto) 20.[address] [facility] # (Auto) 0.6 Eos # (Auto) 0.2 Baso # (Auto) 0.1 Abs Immat Gran (auto) 0.06 H Absolute Neuts (auto) 6.2 Absolute Nucleated RBC 0.000 Total Counted Neutrophils % (Manual) Band Neutrophils % Lymphocytes % (Manual) Monocytes % (Manual) Eosinophils % (Manual) Basophils % (Manual) Nucleated RBC % 0.0 Abs Neuts (Manual) Abs Lymphs (Manual) Abs Monocytes (Manual) Absolute Eos (Manual) Abs Basophils (Manual) Smudge Cells Present Platelet Estimate Adequate Large Platelets Giant Platelets Anisocytosis 1+ Tear Drop Cells 1+ Schistocytes None seen Sodium 135 L Potassium 3.5 Chloride 103 Carbon Dioxide 26 Anion Gap 6 BUN 19 Creatinine 1.20 Estim Creat Clear Calc 68 Estimated GFR > 60 Glucose 125 H Lactic Acid 1.6 Calcium 9.6 Total Bilirubin 1.3 AST 39 ALT 39 Alkaline Phosphatase 87 Total Protein 8.0 Albumin 4.5 Lipase 32 Urine Color Dark yellow Urine Appearance Clear Urine pH 5.5 Ur Specific [place] 1.033 Urine Protein 2+ H Urine Glucose (UA) Trace H Urine Ketones 1+ H Ur Blood (Man) Trace Urine Nitrate Negative Urine Bilirubin 1+ H Urine Urobilinogen 1.0 Add Ur Microanalysis Reviewed Leukocyte Esterase Rfl Negative Urine RBC 0-2 Urine WBC 0-5 Ur Squamous Epith Cells Occasional Urine Bacteria None seen Urine Casts 3-5 11/20/24 07:10 WBC 21.2 H RBC 4.83 Hgb 14.3 Hct 42.6 MCV 88.2 MCH 29.6 MCHC 33.6 RDW 14.0 Plt Count 142 L MPV 11.2 H Immature Gran % (Auto) Not Reportable Neut % (Auto) Not Reportable Lymph % (Auto) Not Reportable [facility] % (Auto) Not Reportable Eos % (Auto) Not Reportable Baso % (Auto) Not Reportable Lymph # (Auto) Not Reportable [facility] # (Auto) Not Reportable Eos # (Auto) Not Reportable Baso # (Auto) Not Reportable Abs Immat Gran (auto) Not Reportable Absolute Neuts (auto) Not Reportable Absolute Nucleated RBC Not Reportable Total Counted 100 Neutrophils % (Manual) 16 L Band Neutrophils % 0 Lymphocytes % (Manual) 78 H Monocytes % (Manual) 5 Eosinophils % (Manual) 1 Basophils % (Manual) 0 Nucleated RBC % Not Reportable Abs Neuts (Manual) 3.39 Abs Lymphs (Manual) 16.53 H Abs Monocytes (Manual) 1.06 H Absolute Eos (Manual) 0.21 Abs Basophils (Manual) 0.00 Smudge Cells Platelet Estimate Adequate Large Platelets Present Giant Platelets Present Anisocytosis 1+ Tear Drop Cells Schistocytes None seen Sodium 136 L Potassium 3.5 Chloride 109 H Carbon Dioxide 24 Anion Gap 3 L BUN 17 Creatinine 1.10 Estim Creat Clear Calc 73 Estimated GFR > 60 Glucose 100 Lactic Acid Calcium 8.7 Total Bilirubin AST ALT Alkaline Phosphatase Total Protein Albumin Lipase Urine Color Urine Appearance Urine pH Ur Specific [place] Urine Protein Urine Glucose (UA) Urine Ketones Ur Blood (Man) Urine Nitrate Urine Bilirubin Urine Urobilinogen Add Ur Microanalysis Leukocyte Esterase Rfl Urine RBC Urine WBC Ur Squamous Epith Cells Urine Bacteria Urine Casts White blood cell count is lower at 21,000 but differential shows a significant lymphocytosis which is somewhat surprising. LFTs are normal and renal function remains normal. Relatively low platelet count of [id number] with increased numbers of large and giant platelets noted
[2024-11-20] MEDS: IBUPROFEN IV 800 MG/200 ML 800 MG/200 ML BAG 385.23 MG IVPB (11:40)
[2024-11-20 12:19] LABS: CRP 15.8 mg/dL (<1.0)
[2024-11-20 14:00] VITALS: BP 113/74; PULSE 70; RESP 20; TEMP 36.5; O2SAT 97
--- NOTE | 2024-11-20 16:30 | P.CONS_ITS ---
HPI Data of Consult Date/Time: 11/20/24 16:30 Requesting Physician: Jerson Moran MD Primary Care Provider: UNKNOWN,DOCTOR Consult Narrative Narrative: Jamie Solomon is a 54 year old male Review of Systems 2 Review of Systems: This is a 54 y/o gentleman who developed severe abdominal pain at home. He had no nausea or vomiting or diarrhea. He was admitted to the hospital for evaluation. CT scan showed free peritoneal gas suggesting ruptured viscus. His blood counts showed chronic lymphocytosis with smudge cells. PB showed thrombocytopenia with giant platelets. He is referred for hematology evaluation. He denies prior history of blood dyscrasia. [facility] Past Medical History Medical History (Updated 11/20/24 @ 11:21 by Jerson Moran MD) Chronic insomnia Erectile dysfunction Family History Family History Mother Depression Family history of multiple sclerosis Hypertension Family history of elevated blood lipids Family history of diabetes mellitus in first degree relative Grandparent Diabetes mellitus Family history of malignant neoplasm of brain, Onset Age: 69 Father Hypertension Social History Social History Smoking status: Never smoker Second hand tobacco smoke exposure: No Smoking end date: 11/25/09 Additional smoking assessment comments: uses Nicorette gum Alcohol intake: current Drinks per week: 8 Substance use: never Substance use type: marijuana Other substance usage details: THC gummies Do You Feel Safe in your Home?: Yes Lack of Transportation: No Lack of Food: Never True Current Housing: I Have Housing Concerned About Future Housing: No Difficulty Paying Gas/Electric Bills: No Difficulty Paying for Meds: No Currently Unemployed: No Education: Trade/Vocational Certificate Difficulty w/ Childcare or Family Care: No Living arrangements: with family Occupation/Education: occupation 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 Gender identity (if verbalized by the patient): Male Spiritual care concerns: No Meds Home Medications and Allergies Home Medications ?Medication ?Instructions ?Recorded ?Confirmed ?Type Nicorette 1 gum PO DIRECTED 10/20/19 11/19/24 History sildenafil (pulm.hypertension) 20 20 mg PO DAILY PRN sexual activity 12/20/23 11/19/24 Rx mg tablet #30 tabs Allergies Allergy/AdvReac Type Severity Reaction Status Date / Time No Known Allergies Allergy Verified 02/05/24 08:14 Vital Signs Vital Signs - 24 hr 11/19/24 17:10 11/19/24 17:33 11/19/24 18:53 Temperature 36.8 C Pulse Rate 98 98 94 Respiratory Rate 18 19 16 Blood Pressure 147/97 H 141/90 H 137/92 H Pulse Oximetry 99 98 97 Oxygen Delivery 11/19/24 20:30 11/20/24 04:45 11/20/24 08:00 Temperature 37.4 C 36.3 C L Pulse Rate 83 85 Respiratory Rate 20 18 Blood Pressure 127/69 117/75 Pulse Oximetry 98 98 Oxygen Delivery Room Air 11/20/24 14:00 Temperature 36.5 C Pulse Rate 70 Respiratory Rate 20 Blood Pressure 113/74 Pulse Oximetry 97 Oxygen Delivery Results Labs 11/20/24 07:10 11/20/24 07:10 Labs: Short CBC 11/20/24 Range/Units 07:10 WBC 21.2 H (4.5-10.0) K/mm3 Hgb 14.3 (14.0-18.0) g/dL Hct 42.6 (42.0-52.0) % Plt Count 142 L (150-375) k/mm3 BMP 11/20/24 07:10 Sodium 136 L Potassium 3.5 Chloride 109 H Carbon Dioxide 24 BUN 17 Creatinine 1.10 Glucose 100 Calcium 8.7 Attestation Student Attestation This is a 73 y/o man admitted to the hospital with acute abdomen. He has lymphocytosis and thrombocytopenia with giant platelets. Plan: Monitor blood counts flocytometry
[2024-11-20] MEDS: MORPHINE SULFATE (*CRX) 2 MG/ML INJ IV PUSH ×2 (18:29→23:13)
[2024-11-20 20:15] VITALS: BP 124/94; PULSE 72; RESP 16; TEMP 36.9; O2SAT 100
[2024-11-20] MEDS: diazePAM (*CRX) 5 MG TABLET PO (23:10)
[2024-11-21] MEDS: SODIUM CHLORIDE 0.9% IV 1,000 ML 125 ML IV CONT ×3 (00:42→17:51)
[2024-11-21] MEDS: MORPHINE SULFATE (*CRX) 2 MG/ML INJ IV PUSH (03:31)
[2024-11-21 04:35] VITALS: BP 120/64; PULSE 84; RESP 18; TEMP 37.3; O2SAT 98
[2024-11-21] MEDS: PIPERACILLN/TAZ 3.375GM/NS50ML 3.375 GM/50 ML BAG IVPB ×4 (05:28→23:56)
[2024-11-21 05:50] LABS: Basophils Percent Auto 0.2 % (0.2-1.2); Eosinophils Absolute Auto 0.3 K/mm3 (0-0.3); Eosinophils Percent Auto 1.5 % (0-4.4); Hematocrit 41.1 % (42.0-52.0); Hemoglobin 13.7 g/dL (14.0-18.0); Immature Granulocyte Absolute 0.03 K/mm3 (0.00-0.031); Immature Granulocyte Percent A 0.1 % (0-0.5); Lymphocytes Absolute Auto 15.57 K/mm3 (0.9-3.2); Mean Corpuscular HGB Conc 33.3 g/dl (32-36); Mean Corpuscular Hemoglobin 29.3 pg (26-34); Mean Corpuscular Volume 87.8 fl (80-100); Mean Platelet Volume 10.7 fl (7.4-10.4); Monocytes Absolute Auto 0.5 K/mm3 (0.1-0.6); Monocytes Percent Auto 2.3 % (2.6-8.5); Neutrophils Absolute Auto 5.2 K/mm3 (1.3-6.7); Neutrophils Percent Auto 23.9 % (45.5-73.1); Platelet Count Result 138 k/mm3 (150-375); Red Blood Count 4.68 M/mm3 (4.6-6.20); Red Cell Distribution Width 14.1 % (11.5-14.5); White Blood Count 21.6 K/mm3 (4.5-10.0)
[2024-11-21 05:58] LABS: Anion Gap 6 mmol/L (4-12); Blood Urea Nitrogen 15 mg/dL (9-20); Calcium 8.5 mg/dL (8.4-10.2); Carbon Dioxide 19 mmol/L (22-30); Chloride 113 mmol/L (98-107); Estimated CRCL calculation 80 ml/min; Estimated Glomerular Filt Rate > 60; Glucose 86 mg/dL (65-110); Potassium 3.7 mmol/L (3.4-5.0); Sodium 138 mmol/L (137-145)
[2024-11-21 07:05] LABS: Platelet Estimate Slightly Decreased (Adequate); Schistocytes None Seen; Smudge Cells FEW
[2024-11-21] MEDS: MORPHINE SULFATE (*CRX) 4 MG/ML INJ IV PUSH (09:05)
[2024-11-21] MEDS: IBUPROFEN IV 800 MG/200 ML 800 MG/200 ML BAG 385.23 MG IVPB (12:44)
--- NOTE | 2024-11-21 13:32 | P.PNGS_ITS ---
Progress Note: A&P Assessment and Plan (1) Diverticulitis of large intestine with perforation: Qualifiers: Diverticulitis bleeding: without bleeding Qualified Code(s): K57.20 - Diverticulitis of large intestine with perforation and abscess without bleeding Code(s): K57.20 - Diverticulitis of large intestine with perforation and abscess without bleeding Status: Acute Assessment and Plan: Recurrent severe lower abdominal pain after bowel movement. Patient has been NPO and on IV antibiotics. Has tenderness and fullness suggestive of inflammatory mass in the suprapubic area. Will get repeat CT scan today to evaluate more fully. Continue NPO except meds with sips and ice chips sparingly. (2) Lymphocytosis: Code(s): D72.820 - Lymphocytosis (symptomatic) Status: Chronic Assessment and Plan: Hematology consultation appreciated. Continue to monitor blood counts and and patient to have flow cytometry eventually. Subjective Subjective Date/Time Seen: 11/21/24 13:32 Patient reports: still having pain (Pain is worse, severe pain after bowel movement), voiding w/o difficulty, bowel movement and afebrile Review of Systems Review of Systems: All systems reviewed & are unremarkable except as noted in HPI and below (HPI) Exam Const: General: comfortable, no acute distress, alert, awake and well nourished Orientation/consciousness: patient oriented x3 GI: Inspection: normal to inspection, non-distended and scaphoid GI Palp: Yes Soft to palpation, Yes Tenderness to palpation present (GI) (Infraumbilical midline with fullness), No Guarding due to palpation present (GI), Yes Palpable mass present (Fullness in the area of tenderness ) and No Rebound tenderness present Neuro: General: patient oriented x3 and no focal motor deficits Extrem: General: no calf tenderness and no edema Psych: Speech and movement: Clear speech present Affect: Anxious affect present Attitude: cooperative Thought process: Normal thought process present Thought content: Yes Normal thought content present Insight: Good insight present (Psych) Judgement: Good judgement present (Psych) Objective Data Vital Signs Vital Signs: Vital Signs - 24 hr 11/20/24 14:00 11/20/24 20:00 11/20/24 20:15 Temperature 36.5 C 36.9 C Pulse Rate 70 72 Respiratory Rate 20 16 Blood Pressure 113/74 124/94 H Pulse Oximetry 97 100 Oxygen Delivery Room Air 11/21/24 04:35 11/21/24 08:00 Temperature 37.3 C Pulse Rate 84 Respiratory Rate 18 Blood Pressure 120/64 Pulse Oximetry 98 Oxygen Delivery Room Air Intake/Output Intake/Output: Intake & Output 11/18/24 11/19/24 11/20/24 11/21/24 23:59 23:59 23:59 23:59 Intake Total 50 4160.4 1550 Balance 50 4160.4 1550 Meds/Results Medications: Active Medications Generic Name Dose Route Start Last Admin Trade Name Freq PRN Reason Stop Dose Admin Diazepam 5 mg 11/19/24 19:19 11/20/24 23:10 Diazepam (*Crx) 5 Mg Tablet PO 5 mg QHS PRN Administration Anxiety Sodium Chloride 1,000 mls @ 125 mls/hr 11/19/24 17:35 11/21/24 10:37 Normal Saline Iv IV CONT 125 mls/hr .Q8H LORETA Administration Piperacillin/Tazobactam/Dextrose 3.375 gm in 50 mls @ 100 mls/hr 11/20/24 00:00 11/21/24 12:43 Zosyn 3.375 Gm/Ns 50 Ml IVPB 100 mls/hr Q6H LORETA Administration Ibuprofen 800 mg in 200 mls @ 385.233 mls/hr 11/19/24 19:26 11/21/24 12:44 Caldolor 800 Mg/200 Ml IVPB 385.23 mls/hr Q6H PRN Administration PAIN 1-3 Morphine Sulfate 4 mg 11/19/24 17:35 11/21/24 09:05 Morphine Sulfate (*Crx) 4 Mg/Ml Inj IV PUSH 4 mg Q2H PRN Administration Pain Rated 7-10 Morphine Sulfate 2 mg 11/19/24 17:37 11/21/24 03:31 Morphine Sulfate (*Crx) 2 Mg/Ml Inj IV PUSH 2 mg Q2H PRN Administration Pain Rated 4-6 Nicotine Polacrilex 2 mg 11/20/24 07:50 Nicotine (*Pbkc) 2 Mg Gum PO Q2H PRN NICOTINE CRAVINGS Radiology Results: ITS Impressions Abdomen/Pelvis CT 11/19/24 16:54 IMPRESSION: 1. Likely perforated sigmoid diverticulitis with loculated free intraluminal gas within the sigmoid and distal descending colon mesentery. No abscess. Labs Labs: Laboratory Results - last 24 hr 11/21/24 05:41 WBC 21.6 H RBC 4.68 Hgb 13.7 L Hct 41.1 L MCV 87.8 MCH 29.3 MCHC 33.3 RDW 14.1 Plt Count 138 L MPV 10.7 H Immature Gran % (Auto) 0.1 Neut % (Auto) 23.9 L Lymph % (Auto) 72.0 H [place] % (Auto) 2.3 L Eos % (Auto) 1.5 Baso % (Auto) 0.2 Lymph # (Auto) 15.57 H [place] # (Auto) 0.5 Eos # (Auto) 0.3 Baso # (Auto) 0.0 Abs Immat Gran (auto) 0.03 Absolute Neuts (auto) 5.2 Absolute Nucleated RBC 0.000 Nucleated RBC % 0.0 Smudge Cells Few Platelet Estimate Slightly decreased Schistocytes None seen Sodium 138 Potassium 3.7 Chloride 113 H Carbon Dioxide 19 L Anion Gap 6 BUN 15 Creatinine 1.00 Estim Creat Clear Calc 80 Estimated GFR > 60 Glucose 86 Calcium 8.5
[2024-11-21 14:00] VITALS: BP 114/71; PULSE 79; RESP 18; TEMP 36.9; O2SAT 99
--- NOTE | 2024-11-21 14:42 | PC.NURSE ---
Pt informed RN that he would rather not get the morphine anymore because it was causing him to have a lot of stomach pains when he started using it last night. Pt states that he would like to get IV ibuprofen because that seems to help him and it doesn't cause him any lower abd pain or diarrhea.
[2024-11-21] MEDS: diazePAM (*CRX) 5 MG TABLET PO (19:38)
[2024-11-21] MEDS: IBUPROFEN IV 800 MG/200 ML 800 MG/200 ML BAG 400 MG IVPB (19:38)
[2024-11-21 20:00] VITALS: BP 131/76; PULSE 82; RESP 16; TEMP 37.4; O2SAT 97
[2024-11-22] MEDS: SODIUM CHLORIDE 0.9% IV 1,000 ML 125 ML IV CONT ×3 (00:26→18:02)
[2024-11-22 04:55] VITALS: BP 141/85; PULSE 78; RESP 18; TEMP 37.1; O2SAT 98
[2024-11-22] MEDS: PIPERACILLN/TAZ 3.375GM/NS50ML 3.375 GM/50 ML BAG IVPB ×4 (05:06→23:00)
[2024-11-22] MEDS: IBUPROFEN IV 800 MG/200 ML 800 MG/200 ML BAG 400 MG IVPB ×2 (06:22→21:41)
[2024-11-22 06:48] LABS: Basophils Percent Auto 0.2 % (0.2-1.2); Eosinophils Absolute Auto 0.3 K/mm3 (0-0.3); Eosinophils Percent Auto 1.5 % (0-4.4); Hematocrit 40.2 % (42.0-52.0); Hemoglobin 13.3 g/dL (14.0-18.0); Immature Granulocyte Absolute 0.05 K/mm3 (0.00-0.031); Immature Granulocyte Percent A 0.3 % (0-0.5); Lymphocytes Absolute Auto 13.58 K/mm3 (0.9-3.2); Lymphocytes Percent Auto 71.6 % (18.3-44.2); Mean Corpuscular HGB Conc 33.1 g/dl (32-36); Mean Corpuscular Hemoglobin 29.6 pg (26-34); Mean Corpuscular Volume 89.3 fl (80-100); Mean Platelet Volume 11.4 fl (7.4-10.4); Monocytes Absolute Auto 0.4 K/mm3 (0.1-0.6); Monocytes Percent Auto 2.2 % (2.6-8.5); Neutrophils Absolute Auto 4.6 K/mm3 (1.3-6.7); Neutrophils Percent Auto 24.2 % (45.5-73.1); Platelet Count Result 151 k/mm3 (150-375); Red Cell Distribution Width 14.1 % (11.5-14.5)
[2024-11-22 06:58] LABS: Anion Gap 6 mmol/L (4-12); Blood Urea Nitrogen 10 mg/dL (9-20); Calcium 8.5 mg/dL (8.4-10.2); Carbon Dioxide 19 mmol/L (22-30); Chloride 115 mmol/L (98-107); Estimated CRCL calculation 89 ml/min; Estimated Glomerular Filt Rate > 60; Glucose 75 mg/dL (65-110); Potassium 3.7 mmol/L (3.4-5.0); Sodium 140 mmol/L (137-145)
[2024-11-22 14:00] VITALS: BP 130/67; PULSE 81; RESP 16; TEMP 36.7; O2SAT 97
--- NOTE | 2024-11-22 14:40 | P.CONS_ITS ---
Assessment and Plan Assessment and plan (1) Lymphocytosis: Code(s): D72.820 - Lymphocytosis (symptomatic) Status: Chronic Plan The patient states that he feels much better. His abdominal pain continues to improve. WBCs down from 27.7 to 19K. Lymphocytosis persists though decreasing from 20.57K down to 13.58K Platelet counts are normal at 151K. Plan: We will continue to monitor blood counts. We will order flow cytometry in view of elevated lymphocyte count. HPI Data of Consult Date/Time: 11/22/24 14:40 Requesting Physician: Jerson Moran MD Primary Care Provider: UNKNOWN,DOCTOR Consult Narrative Narrative: Jamie Solomon is a 54 year old male [facility] Past Medical History Medical History (Updated 11/25/24 @ 13:36 by Jerson Moran MD) Chronic insomnia Erectile dysfunction Family History Family History Mother Depression Family history of multiple sclerosis Hypertension Family history of elevated blood lipids Family history of diabetes mellitus in first degree relative Grandparent Diabetes mellitus Family history of malignant neoplasm of brain, Onset Age: 69 Father Hypertension Social History Social History Smoking status: Never smoker Second hand tobacco smoke exposure: No Smoking end date: 11/25/09 Additional smoking assessment comments: uses Nicorette gum Alcohol intake: current Drinks per week: 8 Substance use: never Substance use type: marijuana Other substance usage details: THC gummies Do You Feel Safe in your Home?: Yes Lack of Transportation: No Lack of Food: Never True Current Housing: I Have Housing Concerned About Future Housing: No Difficulty Paying Gas/Electric Bills: No Difficulty Paying for Meds: No Currently Unemployed: No Education: Trade/Vocational Certificate Difficulty w/ Childcare or Family Care: No Living arrangements: with family 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/Education: 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 Gender identity (if verbalized by the patient): Male Spiritual care concerns: No Meds Home Medications and Allergies Home Medications ?Medication ?Instructions ?Recorded ?Confirmed ?Type Nicorette 1 gum PO DIRECTED 10/20/19 11/19/24 History sildenafil (pulm.hypertension) 20 20 mg PO DAILY PRN sexual activity 12/20/23 11/19/24 Rx mg tablet #30 tabs Allergies Allergy/AdvReac Type Severity Reaction Status Date / Time No Known Allergies Allergy Verified 11/24/24 14:05 Vital Signs Vital Signs - 24 hr 11/21/24 20:00 11/21/24 20:00 11/22/24 04:55 Temperature 37.4 C 37.1 C Pulse Rate 82 78 Respiratory Rate 16 18 Blood Pressure 131/76 141/85 H Pulse Oximetry 97 98 Oxygen Delivery Room Air 11/22/24 14:00 Temperature 36.7 C Pulse Rate 81 Respiratory Rate 16 Blood Pressure 130/67 Pulse Oximetry 97 Oxygen Delivery Results Labs 11/27/24 06:01 11/27/24 06:01 Labs: Short CBC 11/22/24 Range/Units 05:40 WBC 19.0 H (4.5-10.0) K/mm3 Hgb 13.3 L (14.0-18.0) g/dL Hct 40.2 L (42.0-52.0) % Plt Count 151 (150-375) k/mm3 [facility] 11/22/24 05:40 Sodium 140 Potassium 3.7 Chloride 115 H Carbon Dioxide 19 L BUN 10 D Creatinine 0.90 Glucose 75 Calcium 8.5
--- NOTE | 2024-11-22 14:46 | PM.PNGS ---
Progress Note: A&P Assessment and Plan (1) Diverticulitis of intestine with perforation and abscess without bleeding: Qualifiers: Diverticulitis site: large intestine Qualified Code(s): K57.20 - Diverticulitis of large intestine with perforation and abscess without bleeding Code(s): K57.80 - Diverticulitis of intestine, part unspecified, with perforation and abscess without bleeding Status: Acute Assessment and Plan: Patient clinically improved with white blood cell count decreasing and less pain. CT scan shows 5.1 cm abscess where large intra mesenteric fluid collection was seen on admission. This will likely cause recurrent pain and infection if not treated. I will start him on clear liquids today but repeat labs again tomorrow. Plan for CT-guided percutaneous drainage of abscess tomorrow as well. Explained to patient who agrees. Subjective Subjective Date/Time Seen: 11/22/24 14:46 Patient reports: feels better, pain is less, voiding w/o difficulty, bowel movement, diarrhea (Stools are more loose, no pain with bowel movement) and afebrile Review of Systems Review of Systems: All systems reviewed & are unremarkable except as noted in HPI and below (HPI) Exam Const: General: comfortable, no acute distress, alert and awake Orientation/consciousness: patient oriented x3 GI: Inspection: non-distended, scaphoid and visible herniation (Umbilical as before) GI Palp: Yes Soft to palpation, Yes Tenderness to palpation present (GI) (Minimal tenderness this morning, much better), No Guarding due to palpation present (GI) and No Rebound tenderness present Auscultation: normal bowel sounds Neuro: General: patient oriented x3 and no focal motor deficits Extrem: General: no calf tenderness and no edema Psych: Affect: normal affect Insight: Good insight present (Psych) Judgement: Good judgement present (Psych) Objective Data Vital Signs Vital Signs: Vital Signs - 24 hr 11/21/24 20:00 11/21/24 20:00 11/22/24 04:55 Temperature 37.4 C 37.1 C Pulse Rate 82 78 Respiratory Rate 16 18 Blood Pressure 131/76 141/85 H Pulse Oximetry 97 98 Oxygen Delivery Room Air 11/22/24 14:00 Temperature 36.7 C Pulse Rate 81 Respiratory Rate 16 Blood Pressure 130/67 Pulse Oximetry 97 Oxygen Delivery Intake/Output Intake/Output: Intake & Output 12/2611/20/24 11/21/24 11/22/24 23:59 23:59 23:59 23:59 Intake Total 50 4160.4 3954.2 1250 Balance 50 4160.4 3954.2 1250 Meds/Results Medications: Active Medications Generic Name Dose Route Start Last Admin Trade Name Freq PRN Reason Stop Dose Admin Diazepam 5 mg 11/19/24 19:19 11/21/24 19:38 Diazepam (*Crx) 5 Mg Tablet PO 5 mg QHS PRN Administration Anxiety Sodium Chloride 1,000 mls @ 80 mls/hr 11/19/24 17:35 11/22/24 08:26 Normal Saline Iv IV CONT 125 mls/hr .[id number] LORETA Administration Piperacillin/Tazobactam/Dextrose 3.375 gm in 50 mls @ 100 mls/hr 11/20/24 00:00 11/22/24 12:20 Zosyn 3.375 Gm/Ns 50 Ml IVPB 100 mls/hr Q6H LORETA Administration Ibuprofen 800 mg in 200 mls @ 385.233 mls/hr 11/19/24 19:26 11/22/24 06:22 Caldolor 800 Mg/200 Ml IVPB 400 mls/hr Q6H PRN Administration PAIN 1-3 Morphine Sulfate 4 mg 11/19/24 17:35 11/21/24 09:05 Morphine Sulfate (*Crx) 4 Mg/Ml Inj IV PUSH 4 mg Q2H PRN Administration Pain Rated 7-10 Morphine Sulfate 2 mg 11/19/24 17:37 11/21/24 03:31 Morphine Sulfate (*Crx) 2 Mg/Ml Inj IV PUSH 2 mg Q2H PRN Administration Pain Rated 4-6 Nicotine Polacrilex 2 mg 11/20/24 07:50 Nicotine (*Pbkc) 2 Mg Gum PO Q2H PRN NICOTINE CRAVINGS Radiology Results: ITS Impressions Abdomen/Pelvis CT 11/22/24 06:55 IMPRESSION: 1. Perforated sigmoid diverticulitis gas and fluid within a 5.1 x 2.6 cm increasingly organized-appearing abscess within the immediately adjacent sigmoid mesentery. Labs Labs: Laboratory Results - last 24 hr 11/22/24 05:40 WBC 19.0 H RBC 4.50 L Hgb 13.3 L Hct 40.2 L MCV 89.3 MCH 29.6 MCHC 33.1 RDW 14.1 Plt Count 151 MPV 11.4 H Immature Gran % (Auto) 0.3 Neut % (Auto) 24.2 L Lymph % (Auto) 71.6 H [place] % (Auto) 2.2 L Eos % (Auto) 1.5 Baso % (Auto) 0.2 Lymph # (Auto) 13.58 H [place] # (Auto) 0.4 Eos # (Auto) 0.3 Baso # (Auto) 0.0 Abs Immat Gran (auto) 0.05 H Absolute Neuts (auto) 4.6 Absolute Nucleated RBC 0.000 Nucleated RBC % 0.0 Sodium 140 Potassium 3.7 Chloride 115 H Carbon Dioxide 19 L Anion Gap 6 BUN 10 D Creatinine 0.90 Estim Creat Clear Calc 89 Estimated GFR > 60 Glucose 75 Calcium 8.5 Imaging Attestation: I personally reviewed and interpreted this imaging study as follows: (CT scan abdomen and pelvis from last night) My impression: Intra mesenteric abscess sigmoid colon area Radiologist's impression: Same, 5.1 cm abscess
[2024-11-22 20:30] VITALS: BP 148/86; PULSE 75; RESP 16; TEMP 37.2; O2SAT 99
[2024-11-22] MEDS: diazePAM (*CRX) 5 MG TABLET PO (21:42)
[2024-11-23] VITALS (14 sets, daily range): BP systolic 123–151; BP diastolic 78–100; PULSE 58–90; RESP 13–24; TEMP 36.1–39.2; O2SAT 95–100
[2024-11-23] MEDS: PIPERACILLN/TAZ 3.375GM/NS50ML 3.375 GM/50 ML BAG IVPB ×3 (05:24→18:51)
[2024-11-23 06:47] LABS: Basophils Absolute Auto 0.1 K/mm3 (0.0-0.1); Basophils Percent Auto 0.3 % (0.2-1.2); Eosinophils Absolute Auto 0.3 K/mm3 (0-0.3); Eosinophils Percent Auto 1.4 % (0-4.4); Hematocrit 39.2 % (42.0-52.0); Immature Granulocyte Absolute 0.02 K/mm3 (0.00-0.031); Immature Granulocyte Percent A 0.1 % (0-0.5); Lymphocytes Percent Auto 78.1 % (18.3-44.2); Mean Corpuscular HGB Conc 33.2 g/dl (32-36); Mean Corpuscular Hemoglobin 29.3 pg (26-34); Mean Corpuscular Volume 88.5 fl (80-100); Monocytes Absolute Auto 0.4 K/mm3 (0.1-0.6); Monocytes Percent Auto 2.3 % (2.6-8.5); Neutrophils Absolute Auto 3.4 K/mm3 (1.3-6.7); Neutrophils Percent Auto 17.8 % (45.5-73.1); Platelet Count Result 164 k/mm3 (150-375); Red Blood Count 4.43 M/mm3 (4.6-6.20); White Blood Count 18.8 K/mm3 (4.5-10.0)
[2024-11-23 07:14] LABS: Blood Urea Nitrogen 5 mg/dL (9-20); Calcium 8.6 mg/dL (8.4-10.2); Carbon Dioxide 22 mmol/L (22-30); Chloride 112 mmol/L (98-107); Estimated CRCL calculation 89 ml/min; Estimated Glomerular Filt Rate > 60
[2024-11-23 07:15] LABS: Anion Gap 5 mmol/L (4-12); Glucose 95 mg/dL (65-110); Potassium 3.3 mmol/L (3.4-5.0); Sodium 139 mmol/L (137-145)
[2024-11-23 07:17] LABS: Platelet Estimate Adequate (Adequate); Schistocytes None Seen; Smudge Cells FEW
[2024-11-23 07:42] LABS: CRP 12.6 mg/dL (<1.0)
[2024-11-23] MEDS: IBUPROFEN IV 800 MG/200 ML 800 MG/200 ML BAG 400 MG IVPB ×2 (08:04→15:07)
[2024-11-23 08:15] LABS: INR 1.3; Partial Thromboplastin Time 30.7 Seconds (22.3-36.8); Prothrombin Time 16.3 Seconds (11.1-14.7)
[2024-11-23] MEDS: SODIUM CHLORIDE 0.9% IV 1,000 ML 125 ML IV CONT (09:04)
--- NOTE | 2024-11-23 10:17 | PM.PNGS ---
Progress Note: A&P Assessment and Plan (1) Diverticulitis of intestine with perforation and abscess without bleeding: Qualifiers: Diverticulitis site: large intestine Qualified Code(s): K57.20 - Diverticulitis of large intestine with perforation and abscess without bleeding Code(s): K57.80 - Diverticulitis of intestine, part unspecified, with perforation and abscess without bleeding Status: Acute Assessment and Plan: Patient clinically improving with IV antibiotics. Repeat CT scan showed a 5.1 cm fluid collection within the sigmoid mesentery. CT-guided percutaneous drainage in IR ordered for today. Continue IV antibiotics. WBC down to 18,000 today. Potassium 3.3, will replace with KCL IV while NPO. Will plan to resume a full liquid diet after the procedure later today. Repeat labs again tomorrow. Plan I have discussed the patient's case and plan of care with Dr. Moran. Subjective Subjective Date/Time Seen: 11/23/24 10:17 Patient reports: feels better, diarrhea (a few times per day, no blood in stool) and afebrile Interval history: Patient NPO for perc drain placement. He tolerated clear liquids well. No nausea or vomiting. Still complaining of some intermittent cramping lower abdominal pain that has improved. No other complaints at this time.WBC down to 18,000. Exam Const: General: comfortable and no acute distress Orientation/consciousness: patient oriented x3 GI: Inspection: non-distended and visible herniation (small umbilical hernia) GI Palp: Yes Soft to palpation, No Tenderness to palpation present (GI), No Guarding due to palpation present (GI) and No Rebound tenderness present Auscultation: normal bowel sounds Objective Data Vital Signs Vital Signs: Vital Signs - 24 hr 11/22/24 14:00 11/22/24 20:00 11/22/24 20:30 Temperature 98.0 F 99 F Pulse Rate 81 75 Respiratory Rate 16 16 Blood Pressure 130/67 148/86 H Pulse Oximetry 97 99 Oxygen Delivery Room Air 11/23/24 04:33 11/23/24 08:15 Temperature 97 F L Pulse Rate 69 Respiratory Rate 20 Blood Pressure 123/86 Pulse Oximetry 96 Oxygen Delivery Room Air Intake/Output Intake/Output: Intake & Output 11/20/24 11/21/24 11/22/24 11/23/24 23:59 23:59 23:59 23:59 Intake Total 4160.4 3954.2 3080 1641 Balance 4160.4 3954.2 3080 1641 Meds/Results Medications: Active Medications Generic Name Dose Route Start Last Admin Trade Name Freq PRN Reason Stop Dose Admin Diazepam 5 mg 11/19/24 19:19 11/22/24 21:42 Diazepam (*Crx) 5 Mg Tablet PO 5 mg QHS PRN Administration Anxiety Sodium Chloride 1,000 mls @ 80 mls/hr 11/19/24 17:35 11/23/24 09:04 Normal Saline Iv IV CONT 125 mls/hr .[id number] LORETA Administration Piperacillin/Tazobactam/Dextrose 3.375 gm in 50 mls @ 100 mls/hr 11/20/24 00:00 11/23/24 06:30 Zosyn 3.375 Gm/Ns 50 Ml IVPB Infused Q6H LORETA Infusion Ibuprofen 800 mg in 200 mls @ 385.233 mls/hr 11/19/24 19:26 11/23/24 08:04 Caldolor 800 Mg/200 Ml IVPB 400 mls/hr Q6H PRN Administration PAIN 1-3 Morphine Sulfate 4 mg 11/19/24 17:35 11/21/24 09:05 Morphine Sulfate (*Crx) 4 Mg/Ml Inj IV PUSH 4 mg Q2H PRN Administration Pain Rated 7-10 Morphine Sulfate 2 mg 11/19/24 17:37 11/21/24 03:31 Morphine Sulfate (*Crx) 2 Mg/Ml Inj IV PUSH 2 mg Q2H PRN Administration Pain Rated 4-6 Nicotine Polacrilex 2 mg 11/20/24 07:50 Nicotine (*Pbkc) 2 Mg Gum PO Q2H PRN NICOTINE CRAVINGS Radiology Results: ITS Impressions Abdomen/Pelvis CT 11/22/24 06:55 IMPRESSION: 1. Perforated sigmoid diverticulitis gas and fluid within a 5.1 x 2.6 cm increasingly organized-appearing abscess within the immediately adjacent sigmoid mesentery. Labs Labs: Laboratory Results - last 24 hr 11/23/24 11/23/24 06:06 07:56 WBC 18.8 H RBC 4.43 L Hgb 13.0 L Hct 39.2 L MCV 88.5 MCH 29.3 MCHC 33.2 RDW 14.0 Plt Count 164 MPV 11.0 H Immature Gran % (Auto) 0.1 Neut % (Auto) 17.8 L Lymph % (Auto) 78.1 H [place] % (Auto) 2.3 L Eos % (Auto) 1.4 Baso % (Auto) 0.3 Lymph # (Auto) 14.70 H [place] # (Auto) 0.4 Eos # (Auto) 0.3 Baso # (Auto) 0.1 Abs Immat Gran (auto) 0.02 Absolute Neuts (auto) 3.4 Absolute Nucleated RBC 0.000 Nucleated RBC % 0.0 Smudge Cells Few Platelet Estimate Adequate Schistocytes None seen PT 16.3 H INR 1.3 APTT 30.7 Sodium 139 Potassium 3.3 L Chloride 112 H Carbon Dioxide 22 Anion Gap 5 BUN 5 L D Creatinine 0.90 Estim Creat Clear Calc 89 Estimated GFR > 60 Glucose 95 Calcium 8.6 C-Reactive Protein 12.6 H
[2024-11-23] MEDS: POTASSIUM CHLORIDE INJ 40 MEQ in SODIUM CHLORIDE 0.9% IV 500 ML 130 MEQ IVPB (10:40)
[2024-11-23] MEDS: SACCHAROMYCES BOULARDII 250 MG CAPSULE PO (17:11)
[2024-11-23] MEDS: ACETAMINOPHEN 500 MG TABLET PO (18:57)
[2024-11-23] MEDS: oxyCODONE/ACETAMINOPHEN (*CRX) 5-325 MG TABLET 1 TABLET PO (20:33)
[2024-11-23] MEDS: IBUPROFEN 600 MG TABLET PO (20:33)
[2024-11-23 20:45] LABS: Hematocrit 42.3 % (42.0-52.0); Hemoglobin 14.6 g/dL (14.0-18.0); Mean Corpuscular HGB Conc 34.5 g/dl (32-36); Mean Corpuscular Hemoglobin 29.6 pg (26-34); Mean Corpuscular Volume 85.8 fl (80-100); Mean Platelet Volume 10.8 fl (7.4-10.4); Platelet Count Result 184 k/mm3 (150-375); Red Blood Count 4.93 M/mm3 (4.6-6.20); Red Cell Distribution Width 14.1 % (11.5-14.5); White Blood Count 19.2 K/mm3 (4.5-10.0)
[2024-11-23 21:00] LABS: Anion Gap 6 mmol/L (4-12); Blood Urea Nitrogen 4 mg/dL (9-20); Calcium 8.6 mg/dL (8.4-10.2); Carbon Dioxide 19 mmol/L (22-30); Chloride 111 mmol/L (98-107); Estimated CRCL calculation 99 ml/min; Estimated Glomerular Filt Rate > 60; Glucose 136 mg/dL (65-110); Potassium 3.4 mmol/L (3.4-5.0); Sodium 136 mmol/L (137-145)
[2024-11-23 21:01] LABS: Lactic Acid Reflex 0.9 mmol/L (0.7-2.0)
[2024-11-23] MEDS: diazePAM (*CRX) 5 MG TABLET PO (21:41)
[2024-11-24] VITALS (16 sets, daily range): BP systolic 114–170; BP diastolic 70–86; PULSE 52–99; RESP 16–24; TEMP 36.1–37.1; O2SAT 88–98
[2024-11-24] MEDS: PIPERACILLN/TAZ 3.375GM/NS50ML 3.375 GM/50 ML BAG IVPB ×4 (00:10→19:07)
[2024-11-24] MEDS: oxyCODONE/ACETAMINOPHEN (*CRX) 5-325 MG TABLET 1 TABLET PO ×2 (02:35→08:16)
[2024-11-24 07:44] LABS: Basophils Absolute Auto 0.1 K/mm3 (0.0-0.1); Basophils Percent Auto 0.3 % (0.2-1.2); Eosinophils Absolute Auto 0.3 K/mm3 (0-0.3); Eosinophils Percent Auto 1.5 % (0-4.4); Hematocrit 38.3 % (42.0-52.0); Hemoglobin 12.9 g/dL (14.0-18.0); Immature Granulocyte Absolute 0.02 K/mm3 (0.00-0.031); Immature Granulocyte Percent A 0.1 % (0-0.5); Lymphocytes Absolute Auto 13.12 K/mm3 (0.9-3.2); Lymphocytes Percent Auto 72.7 % (18.3-44.2); Mean Corpuscular HGB Conc 33.7 g/dl (32-36); Mean Corpuscular Hemoglobin 29.5 pg (26-34); Mean Corpuscular Volume 87.4 fl (80-100); Monocytes Absolute Auto 0.4 K/mm3 (0.1-0.6); Monocytes Percent Auto 2.1 % (2.6-8.5); Neutrophils Absolute Auto 4.2 K/mm3 (1.3-6.7); Neutrophils Percent Auto 23.3 % (45.5-73.1); Platelet Count Result 162 k/mm3 (150-375); Red Blood Count 4.38 M/mm3 (4.6-6.20); Red Cell Distribution Width 14.2 % (11.5-14.5); White Blood Count 18.1 K/mm3 (4.5-10.0)
[2024-11-24 08:01] LABS: Anion Gap 3 mmol/L (4-12); Blood Urea Nitrogen 5 mg/dL (9-20); Calcium 8.3 mg/dL (8.4-10.2); Carbon Dioxide 23 mmol/L (22-30); Chloride 111 mmol/L (98-107); Estimated CRCL calculation 89 ml/min; Estimated Glomerular Filt Rate > 60; Glucose 103 mg/dL (65-110); Potassium 3.4 mmol/L (3.4-5.0); Sodium 137 mmol/L (137-145)
[2024-11-24] MEDS: SACCHAROMYCES BOULARDII 250 MG CAPSULE PO (08:16)
--- NOTE | 2024-11-24 10:43 | P.PNGS_ITS ---
Progress Note: A&P Assessment and Plan (1) Diverticulitis of intestine with perforation and abscess without bleeding: Qualifiers: Diverticulitis site: large intestine Qualified Code(s): K57.20 - Diverticulitis of large intestine with perforation and abscess without bleeding Code(s): K57.80 - Diverticulitis of intestine, part unspecified, with perforation and abscess without bleeding Status: Acute Assessment and Plan: Patient had an acute episode of increased abdominal pain and fever last night. He had CT-guided percutaneous drainage of the abscess yesterday. The drain has feculent-appearing output today and he has signs of peritonitis on exam. He is hemodynamically stable but appears to be failing conservative management with now signs of fecal peritonitis. I discussed with the patient that he will now likely require surgical management given the fecal peritonitis. I discussed the case with Dr. Moran, who is going to come and discuss surgical options with the patient. Will keep him NPO and start him on continuous IV fluids. Continue IV antibiotics. I have also adjusted his analgesic options to help with pain control. Subjective Subjective Date/Time Seen: 11/24/24 10:00 Patient reports: still having pain, flatus and fever Interval history: Patient seen and is agitated this morning. He had an acute onset of increased diffuse abdominal pain about 5 minutes after the percutaneous drain was placed last night. He developed a fever with tmax of 102.5F. He reports having persistent pain through the night and this morning that was worse than any pain he has been experiencing since admission. He received Percocet for his pain this morning and states it is manageable. He is refusing the Morphine because he feels it makes his abdominal pain worse and gives him abdominal cramping. He is requesting something other than the Percocet, because he feels it makes him very tired. He did have some pain relief with the IV Ibuprofen but has not had this since 3 pm yesterday. Review of Systems Review of Systems: All systems reviewed & are unremarkable except as noted in HPI and below Exam Const: General: comfortable and no acute distress Orientation/consciousness: patient oriented x3 GI: Inspection: other (mildly distended) GI Palp: Yes Soft to palpation, Yes Tenderness to palpation present (GI) (more tender today and more diffusely tender), Yes Guarding due to palpation present (GI) (guarding in the lower abdomen) and No Rebound tenderness present Auscultation: Hypoactive bowel sounds present Psych: Mental Status: mental status grossly normal Objective Data Vital Signs Vital Signs: Vital Signs - 24 hr 11/23/24 13:40 11/23/24 13:45 11/23/24 13:50 Temperature 97 F L 97 F L Pulse Rate 69 58 L 74 Respiratory Rate 24 H 24 H 14 Blood Pressure 140/88 151/91 H 151/100 H Pulse Oximetry 97 97 96 Oxygen Delivery Nasal Cannula Nasal Cannula Nasal Cannula Oxygen Flow Rate 2 2 2 11/23/24 13:55 11/23/24 14:00 11/23/24 14:00 Temperature 98.1 F Pulse Rate 75 73 71 Respiratory Rate 18 16 20 Blood Pressure 137/96 H 139/100 H 123/92 H Pulse Oximetry 95 98 100 Oxygen Delivery Nasal Cannula Nasal Cannula Oxygen Flow Rate 2 2 11/23/24 14:05 11/23/24 14:10 11/23/24 14:15 Temperature Pulse Rate 83 74 81 Respiratory Rate 18 13 17 Blood Pressure 146/93 H 147/92 H 141/92 H Pulse Oximetry 96 97 98 Oxygen Delivery Nasal Cannula Nasal Cannula Room Air Oxygen Flow Rate 2 2 11/23/24 18:34 11/23/24 18:41 11/23/24 19:42 Temperature 101.1 F H 102.5 F H Pulse Rate 90 Respiratory Rate 16 Blood Pressure 140/82 Pulse Oximetry 95 Oxygen Delivery Oxygen Flow Rate 11/23/24 19:57 11/23/24 20:00 11/23/24 21:55 Temperature 102.5 F H 100.3 F H Pulse Rate 88 Respiratory Rate 18 Blood Pressure 123/78 Pulse Oximetry 97 Oxygen Delivery Room Air Oxygen Flow Rate 11/24/24 00:11 11/24/24 04:35 Temperature 97.7 F 98.6 F Pulse Rate 73 Respiratory Rate 16 Blood Pressure 114/76 Pulse Oximetry 96 Oxygen Delivery Oxygen Flow Rate Intake/Output Intake/Output: Intake & Output 11/21/24 11/22/24 11/23/24 11/24/24 23:59 23:59 23:59 23:59 Intake Total 3954.2 3080 2741 200 Output Total 30 Balance 3954.2 3080 2741 170 Meds/Results Medications: Active Medications Generic Name Dose Route Start Last Admin Trade Name Freq PRN Reason Stop Dose Admin Acetaminophen 500 mg 11/23/24 15:30 12/30/24 18:57 Acetaminophen 500 Mg Tablet PO 500 mg Q6H PRN Administration Pain Rated 1-3 Diazepam 5 mg 11/19/24 19:19 11/23/24 21:41 Diazepam (*Crx) 5 Mg Tablet PO 5 mg QHS PRN Administration Anxiety Piperacillin/Tazobactam/Dextrose 3.375 gm in 50 mls @ 100 mls/hr 11/20/24 00:00 11/24/24 06:21 Zosyn 3.375 Gm/Ns 50 Ml IVPB Infused Q6H LORETA Infusion Potassium Chloride/Sodium Chloride 1,000 mls @ 100 mls/hr 11/24/24 10:40 Kcl 20 Meq/Ns IV CONT .Q10H LORETA Ibuprofen 800 mg in 200 mls @ 385.233 mls/hr 11/24/24 10:42 Caldolor 800 Mg/200 Ml IVPB Q6H LORETA Nicotine Polacrilex 2 mg 11/20/24 07:50 Nicotine (*Pbkc) 2 Mg Gum PO Q2H PRN NICOTINE CRAVINGS Saccharomyces Boulardii 250 mg 11/23/24 17:00 11/24/24 08:16 Saccharomyces Boulardii 250 Mg Capsule PO 250 mg BID LORETA Administration Radiology Results: ITS Impressions Catheter Placement CT 11/23/24 14:32 IMPRESSION: 1. Successful CT-guided perisigmoid abscess drainage. 2. 5 mL of opaque, burks fluid was sent for aerobic and anaerobic cultures. Abdomen/Pelvis CT 11/23/24 19:27 IMPRESSION: 1. Sigmoid diverticulitis with previously seen abscesses in the area. Left drainage catheter is seen. Minimal fat stranding in the left paracolic gutter. Early peritonitis should be considered. Clinical correlation advised. 2. Minimal air in the abdomen with fluid around the liver. 3. Dilated small bowel loops suggestive of ileus. Follow-up advised. Labs Labs: Laboratory Results - last 24 hr 11/23/24 11/24/24 20:31 07:13 WBC 19.2 H 18.1 H RBC 4.93 4.38 L Hgb 14.6 12.9 L Hct 42.3 38.3 L MCV 85.8 87.4 MCH 29.6 29.5 MCHC 34.5 33.7 RDW 14.1 14.2 Plt Count 184 162 MPV 10.8 H 11.0 H Immature Gran % (Auto) 0.1 Neut % (Auto) 23.3 L Lymph % (Auto) 72.7 H [place] % (Auto) 2.1 L Eos % (Auto) 1.5 Baso % (Auto) 0.3 Lymph # (Auto) 13.12 H [place] # (Auto) 0.4 Eos # (Auto) 0.3 Baso # (Auto) 0.1 Abs Immat Gran (auto) 0.02 Absolute Neuts (auto) 4.2 Absolute Nucleated RBC 0.000 Nucleated RBC % 0.0 Sodium 136 L 137 Potassium 3.4 3.4 Chloride 111 H 111 H Carbon Dioxide 19 L 23 Anion Gap 6 3 L BUN 4 L 5 L Creatinine 0.80 0.90 Estim Creat Clear Calc 99 89 Estimated GFR > 60 > 60 Glucose 136 H 103 Lactic Acid 0.9 Calcium 8.6 8.3 L Magnesium 2.0
[2024-11-24] MEDS: KCL 20MEQ/0.9% SOD CHL 1,000 ML 100 ML IV CONT (11:08)
[2024-11-24] MEDS: IBUPROFEN IV 800 MG/200 ML 800 MG/200 ML BAG 385.23 MG IVPB (11:08)
[2024-11-24] MEDS: fentaNYL CITRATE INJ (*CRX) 100 MCG/2 ML VIAL 25 MCG IV PUSH ×5 (12:09→20:47)
--- NOTE | 2024-11-24 12:38 | ECG_ITS ---
Test Date: 2024-11-24 13:18:41 Measurements Intervals [place] Rate: 79 P: 21 DE: 148 QRS: 6 QRSD: 90 T: 10 QT: 377 QTc: 435 Interpretive Statements SINUS RHYTHM No previous ECG available for comparison Electronically Signed On 11-24-2024 22:42:08 [employer] by Jayesh Julio M.D.
--- NOTE | 2024-11-24 14:25 | WPDANESEPPF ---
Anes - Initial Pre Proc Eval Procedure: Operation Date: 11/24/24 15:00 Proposed Procedures p Open Sigmoidectomy, Possible Ileostomy or Colostomy - Jerson Moran MD Date/Time: 11/24/24 14:25 Surgeon: Jerson Moran MD Pre Op Diagnosis: Perforated diverticulitis Patient Data Age: 54 Gender: M Height: 1.8 m Weight: 89.5 kg Last Vital Signs Temp 36.9 C 11/24/24 14:00 Pulse 86 11/24/24 14:00 Resp 16 11/24/24 14:00 BP 140/82 11/24/24 14:00 Pulse Ox 96 11/24/24 14:00 O2 Del Method Room Air 11/23/24 20:00 O2 Flow Rate 2 11/23/24 14:10 Allergies Allergy/AdvReac Type Severity Reaction Status Date / Time No Known Allergies Allergy Verified 11/24/24 14:05 Home Medications ?Medication ?Instructions ?Recorded ?Confirmed ?Type Nicorette 1 gum PO DIRECTED 10/20/19 11/19/24 History sildenafil (pulm.hypertension) 20 20 mg PO DAILY PRN sexual activity 12/20/23 11/19/24 Rx mg tablet #30 tabs Laboratory Tests 11/23/24 11/24/24 11/24/24 20:31 07:13 12:48 WBC 19.2 H K/mm3 18.1 H K/mm3 (4.5-10.0) (4.5-10.0) RBC 4.93 M/mm3 4.38 L M/mm3 (4.6-6.20) (4.6-6.20) Hgb 14.6 g/dL 12.9 L g/dL (14.0-18.0) (14.0-18.0) Hct 42.3 % 38.3 L % (42.0-52.0) (42.0-52.0) MCV 85.8 fl 87.4 fl (80-100) (80-100) MCH 29.6 pg 29.5 pg (26-34) (26-34) MCHC 34.5 g/dl 33.7 g/dl (32-36) (32-36) RDW 14.1 % 14.2 % (11.5-14.5) (11.5-14.5) Plt Count 184 k/mm3 162 k/mm3 (150-375) (150-375) MPV 10.8 H fl 11.0 H fl (7.4-10.4) (7.4-10.4) Immature Gran % (Auto) 0.1 % (0-0.5) Neut % (Auto) 23.3 L % (45.5-73.1) Lymph % (Auto) 72.7 H % (18.3-44.2) [place] % (Auto) 2.1 L % (2.6-8.5) Eos % (Auto) 1.5 % (0-4.4) Baso % (Auto) 0.3 % (0.2-1.2) Lymph # (Auto) 13.12 H K/mm3 (0.9-3.2) [place] # (Auto) 0.4 K/mm3 (0.1-0.6) Eos # (Auto) 0.3 K/mm3 (0-0.3) Baso # (Auto) 0.1 K/mm3 (0.0-0.1) Abs Immat Gran (auto) 0.02 K/mm3 (0.00-0.031) Absolute Neuts (auto) 4.2 K/mm3 (1.3-6.7) Absolute Nucleated RBC 0.000 K/mm3 (0.0-0.012) Nucleated RBC % 0.0 % (0.0-0.2) Sodium 136 L mmol/L 137 mmol/L (137-145) (137-145) Potassium 3.4 mmol/L 3.4 mmol/L (3.4-5.0) (3.4-5.0) Chloride 111 H mmol/L 111 H mmol/L (98-107) (98-107) Carbon Dioxide 19 L mmol/L 23 mmol/L (22-30) (22-30) Anion Gap 6 mmol/L 3 L mmol/L (4-12) (4-12) BUN 4 L mg/dL 5 L mg/dL (9-20) (9-20) Creatinine 0.80 mg/dL 0.90 mg/dL (0.7-1.3) (0.7-1.3) Estim Creat Clear Calc 99 ml/min 89 ml/min Estimated GFR > 60 > 60 (59 - ) (59 - ) Glucose 136 H mg/dL 103 mg/dL (65-110) (65-110) Lactic Acid 0.9 mmol/L (0.7-2.0) Calcium 8.6 mg/dL 8.3 L mg/dL (8.4-10.2) (8.4-10.2) Magnesium 2.0 mg/dL (1.6-2.3) Blood Type O Positive Antibody Screen Negative Patient hx anesthesia problems: none Family hx anesthesia problems: none Results Review: All pre-operative results and documents have been reviewed as part of the pre-operative evaluation. [facility] Past Medical History Medical History (Updated 11/23/24 @ 21:18 by Leticia Gunter PA-C) Chronic insomnia Erectile dysfunction Family History Family History Mother Depression Family history of multiple sclerosis Hypertension Family history of elevated blood lipids Family history of diabetes mellitus in first degree relative Grandparent Diabetes mellitus Family history of malignant neoplasm of brain, Onset Age: 69 Father Hypertension Social History Social History Smoking status: Never smoker Second hand tobacco smoke exposure: No Smoking end date: 11/25/09 Additional smoking assessment comments: uses Nicorette gum Alcohol intake: current Drinks per week: 8 Substance use: never Substance use type: marijuana Other substance usage details: THC gummies Do You Feel Safe in your Home?: Yes Lack of Transportation: No Lack of Food: Never True Current Housing: I Have Housing Concerned About Future Housing: No Difficulty Paying Gas/Electric Bills: No Difficulty Paying for Meds: No Currently Unemployed: No Education: Trade/Vocational Certificate Difficulty w/ Childcare or Family Care: No Living arrangements: with family Occupation/Education: occupation 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 Informed Consent: The patient's anesthetic plan and its attendant risks and benefits were discussed with the patient/family/POA. Questions were solicited and answers provided to the satisfaction of the patient/family/POA.
--- NOTE | 2024-11-24 14:30 | WPDHPUPDATE1 ---
History and Physical Update Update Date/Time: 11/24/24 14:30 History and Physical has been reviewed, including an updated exam of the patient. There are NO changes in the patient's condition. Risks, benefits, and alternatives have been discussed and questions answered. Patient agrees to proceed with procedure.
[2024-11-24] MEDS: ceFAZolin 2 GM/D5W 50 ML 2 GM/50 ML BAG IVPB (15:22)
--- NOTE | 2024-11-24 19:49 | P.OP_ITS ---
Procedure Note - Detailed Date of Procedure 11/24/24 Pre-op Diagnosis Diverticulitis with perforation and abscess, colocutaneous fistula Post-op Diagnosis Same Procedure Performed Sigmoidectomy with colorectal anastomosis, takedown splenic flexure Surgeon Jerson Moran MD Rn Trauma Antoni Starr [employer] Anesthesia General Indications Patient has been in the hospital for 5 days with acute diverticulitis and perforation. He developed an abscess and yesterday this was drained percutaneously. He had fever and increased pain today. He began draining fecal material from his drain. After discussion, he is taken to surgery now for sigmoid colon resection with possible ileostomy or colostomy. Findings As noted on the CT scan, the abscess was in the sigmoid colon mesentery. The mesentery was markedly distended and very inflamed. Several loops of small intestine were adherent. The abdomen in general was hypervascular and edematous. Fortunately the upper rectum and distal descending colon were pliable and fairly normal. Hand-sewn end-to-end anastomosis was able to be performed. No evidence of malignancy was seen. Description of Procedure Patient was taken to surgery and induced into general anesthesia. Guidry catheter was placed. Nasogastric tube was placed. The abdomen was opened via a midline incision. We dissected through the midline and entered the peritoneal cavity. There was minimal ascites and no evidence of stool in the abdomen. We placed a large Palomo wound guard. The abdomen was explored with findings as above. There were multiple loops of small bowel stuck to the mass in the sigmoid mesentery. These loops were taken down using a combination of sharp and blunt dissection. No bowel injury occurred. Cautery was used for hemostasis. Following this, the sigmoid and descending colon were exposed. The lateral peritoneal attachments to the distal descending colon and the sigmoid colon were taken down. This was difficult as there were many adhesions and his mesentery were short with little mobility. As we dissected down to the retroperitoneum, we carefully sought the ureter. It was dissected over several cm. It had good peristalsis and the identification was satisfactory. I then continued to take down lateral peritoneal attachments and dissect the sigmoid colon fully off the lateral wall of the upper pelvis. I found an area of pliable upper rectum. I dissected the mesentery from this portion of the rectum. I divided the mesentery to this portion of the rectum with the LigaSure. I then used a contour stapler and divided the upper rectum. This allowed us to better expose the mesentery to the sigmoid and descending colon. I found the inferior mesenteric artery. It was involved in the thickened inflamed mesenteric abscess. It was dissected using a combination of blunt sharp dissection. This area of mesentery was still very thickened. It was doubly clamped and then divided. I suture ligated the proximal end with 2-0 Vicryl. The distal end was ligated with 2-0 Vicryl I was then able to dissect the mesentery up to the distal descending colon. The distal descending colon was minimally inflamed and very pliable. I then used a TLC 75 stapler to divide the distal descending colon from the sigmoid and the inflammatory mass in the mesentery. I was able to pass the sigmoid colon and mesenteric abscess off the field labeled appropriately. With the upper rectum in the distal descending colon being pliable and minimally involved with the inflammation, I felt that primary anastomosis would be suitable. I then proceeded with takedown of the splenic flexure. I continued dissection of the lateral peritoneal attachments to the rest of the descending colon and the splenic flexure. The omentum was densely adherent to the splenic flexure and distal transverse colon. I exposed the proximal mesentery to the remainder of the descending colon and then carefully divided this mesentery with the LigaSure. We moved cephalad and near the duodenum, I divided the inferior mesenteric vein. Any residual mesenteric attachments were avascular and were divided with the cautery. I then elevated the omentum and carefully divided the mid transverse and then distal transverse colon from it. The omentum was so adherent to the splenic flexure that I divided some of the omentum and left the residual attached to the colon. Once the disconnection from the omentum was complete, we had plenty of length to reach the descending colon into the pelvis and rectum. I checked for bleeding in the left upper quadrant. None was seen. We then brought the upper rectum and distal descending colon and proximity. Prominent fat around the area of the 2 staple lines was removed so that serosa was exposed for the suturing. A 2 layer hand-sewn anastomosis was then performed. The posterior outer layer of interrupted 4-0 silk sutures were placed 1st. I then removed the 2 staple lines opening the rectum and distal descending colon. There was no spillage of stool during this procedure. The posterior inner layer was created with bidirectional 4-0 running locking chromic suture. At each corner, we converted the running suture to and inverting Morris suture and used that to complete the anterior inner layer. The 2 ends a suture were tied to 1 another. All looked good. I then used 4-0 silk to perform the anterior outer layer in interrupted fashion. The anastomosis looked good. It was well vascularized and under no tension whatsoever. The lumen was palpable between my thumb and 1st finger. It was obvious that colon gas was passing beyond the anastomosis even during the surgery. We then looked through the abdomen again checking for any bleeding or other untoward consequence. The nasogastric tube was checked and was in good position in the stomach. I then closed the midline fascia with bidirectional running PDS suture. The skin was loosely approximated with wide luis e. The wound was dressed with Xeroform gauze, fluffs, ABDs and Medipore tape. Patient was awakened and taken to recovery in good condition. Sponge and needle counts were correct x2. Estimated Blood Loss -200 Urine Output -300 Drains Yes (Guidry catheter, nasogastric tube) Packing No Pathology Yes (Sigmoid colon with mesenteric abscess) Complications None Condition Stable Disposition PACU [facility] Billing Surgery - Charge Forward: Surgery Billing (Sigmoidectomy with hand-sewn colorectal anastomosis, takedown splenic flexure)
[2024-11-24] MEDS: LACTATED RINGERS 1,000 ML 30 ML IV CONT (19:51)
[2024-11-24] MEDS: FAMOTIDINE 20 MG/2 ML VIAL IV PUSH (21:49)
[2024-11-24] MEDS: KCL 40 MEQ/D5/0.9% SOD CHL 1,000 ML 125 ML IV CONT (21:49)
[2024-11-24] MEDS: SODIUM CHLORIDE 0.9% IV CONT (22:13)
[2024-11-24] MEDS: MORPHINE SULFATE IV CONT (22:13)
[2024-11-24] MEDS: MORPHINE SULFATE (*CRX) 2 MG/ML INJ IV PUSH (22:33)
[2024-11-25] VITALS (15 sets, daily range): BP systolic 103–128; BP diastolic 58–88; PULSE 89–108; RESP 14–20; TEMP 36.6–37.1; O2SAT 94–99
[2024-11-25] MEDS: PIPERACILLN/TAZ 3.375GM/NS50ML 3.375 GM/50 ML BAG IVPB ×5 (00:06→23:12)
[2024-11-25] MEDS: ONDANSETRON INJ 4 MG/2 ML VIAL IV PUSH (00:58)
[2024-11-25] MEDS: KCL 40 MEQ/D5/0.9% SOD CHL 1,000 ML 125 ML IV CONT ×2 (06:17→17:26)
[2024-11-25 06:58] LABS: Hematocrit 41.7 % (42.0-52.0); Mean Corpuscular HGB Conc 33.6 g/dl (32-36); Mean Corpuscular Hemoglobin 29.5 pg (26-34); Mean Platelet Volume 11.5 fl (7.4-10.4); Platelet Count Result 224 k/mm3 (150-375); Red Blood Count 4.74 M/mm3 (4.6-6.20); Red Cell Distribution Width 14.4 % (11.5-14.5); White Blood Count 29.2 K/mm3 (4.5-10.0)
[2024-11-25 07:13] LABS: Anion Gap 3 mmol/L (4-12); Blood Urea Nitrogen 5 mg/dL (9-20); Calcium 8.2 mg/dL (8.4-10.2); Carbon Dioxide 21 mmol/L (22-30); Chloride 114 mmol/L (98-107); Estimated CRCL calculation 99 ml/min; Estimated Glomerular Filt Rate > 60; Glucose 175 mg/dL (65-110); Potassium 4.3 mmol/L (3.4-5.0); Sodium 138 mmol/L (137-145)
[2024-11-25] MEDS: ENOXAPARIN 40 MG/0.4 ML SYRINGE SUB-Q (09:19)
[2024-11-25] MEDS: FAMOTIDINE 20 MG/2 ML VIAL IV PUSH ×2 (09:20→20:23)
[2024-11-25] MEDS: PHENOL/SOD PHENO SPRAY CHERRY (*BKC) 1 SPRAY MUCOUS MEM ×2 (10:55→12:52)
--- NOTE | 2024-11-25 11:50 | WPDCN ---
HPI Data of Consult Date/Time: 11/25/24 11:50 Requesting Physician: Jerson Moran MD Primary Care Provider: UNKNOWN,DOCTOR Consult Narrative Narrative: Jamie Solomon is a 54 year old male Review of Systems Review of Systems: This is a 54-year-old gentleman admitted with severe abdominal pains. And abdominal CT scan of the abdomen showed peritoneal gas suggesting ruptured viscus. Yesterday had laparotomy with bowel resection. She is currently recovering from surgery and his vital signs otherwise normal. The patient was referred to Hematology Oncology because of leukocytosis. His leukocytosis persists at this time with a WBC 29.2 with a predominance of neutrophils. [facility] Past Medical History Medical History (Updated 11/23/24 @ 21:18 by Leticia Gunter PA-C) Chronic insomnia Erectile dysfunction Family History Family History Mother Depression Family history of multiple sclerosis Hypertension Family history of elevated blood lipids Family history of diabetes mellitus in first degree relative Grandparent Diabetes mellitus Family history of malignant neoplasm of brain, Onset Age: 69 Father Hypertension Social History Social History Smoking status: Never smoker Second hand tobacco smoke exposure: No Smoking end date: 11/25/09 Additional smoking assessment comments: uses Nicorette gum Alcohol intake: current Drinks per week: 8 Substance use: never Substance use type: marijuana Other substance usage details: THC gummies Do You Feel Safe in your Home?: Yes Lack of Transportation: No Lack of Food: Never True Current Housing: I Have Housing Concerned About Future Housing: No Difficulty Paying Gas/Electric Bills: No Difficulty Paying for Meds: No Currently Unemployed: No Education: Trade/Vocational Certificate Difficulty w/ Childcare or Family Care: No Living arrangements: with family 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/Education: occupation 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 Gender identity (if verbalized by the patient): Male Spiritual care concerns: No Meds Home Medications and Allergies Home Medications ?Medication ?Instructions ?Recorded ?Confirmed ?Type Nicorette 1 gum PO DIRECTED 10/20/19 11/19/24 History sildenafil (pulm.hypertension) 20 20 mg PO DAILY PRN sexual activity 12/20/23 11/19/24 Rx mg tablet #30 tabs Allergies Allergy/AdvReac Type Severity Reaction Status Date / Time No Known Allergies Allergy Verified 11/24/24 14:05 Vital Signs Vital Signs - 24 hr 11/24/24 13:47 11/24/24 14:00 11/24/24 19:51 Temperature 37.1 C 36.9 C 36.9 C Pulse Rate 89 86 98 Respiratory Rate 16 16 24 H Blood Pressure 141/79 H 140/82 134/73 Pulse Oximetry 96 96 95 Oxygen Delivery Simple Face Mask Oxygen Flow Rate 6 11/24/24 20:05 11/24/24 20:20 11/24/24 20:30 Temperature Pulse Rate 98 98 Respiratory Rate 20 20 Blood Pressure 131/84 128/86 Pulse Oximetry 96 96 88 L Oxygen Delivery Simple Face Mask Room Air Nasal Cannula Oxygen Flow Rate 6 2 11/24/24 20:35 11/24/24 20:50 11/24/24 21:05 Temperature 36.7 C Pulse Rate 94 99 98 Respiratory Rate 22 H 18 20 Blood Pressure 143/70 H 140/76 153/72 H Pulse Oximetry 93 93 94 Oxygen Delivery Nasal Cannula Nasal Cannula Nasal Cannula Oxygen Flow Rate 2 2 2 11/24/24 21:15 11/24/24 21:30 11/24/24 22:13 Temperature 36.1 C L 36.2 C L Pulse Rate 55 L 74 98 Respiratory Rate 24 H 24 H 24 H Blood Pressure 145/79 H 157/75 H Pulse Oximetry 95 97 Oxygen Delivery Oxygen Flow Rate 11/24/24 22:55 11/24/24 23:52 11/25/24 02:18 Temperature 36.2 C L 36.4 C Pulse Rate 78 52 L Respiratory Rate 22 H 16 Blood Pressure 170/84 H 133/79 Pulse Oximetry 98 97 96 Oxygen Delivery Nasal Cannula Oxygen Flow Rate 2 11/25/24 04:35 11/25/24 06:52 11/25/24 10:52 Temperature 36.9 C 36.8 C 36.7 C Pulse Rate 96 101 H 108 H Respiratory Rate 20 16 18 Blood Pressure 128/88 116/73 103/75 Pulse Oximetry 98 97 97 Oxygen Delivery Oxygen Flow Rate Results Labs 11/25/24 05:59 11/25/24 05:59 Labs: Short CBC 11/25/24 Range/Units 05:59 WBC 29.2 H (4.5-10.0) K/mm3 Hgb 14.0 (14.0-18.0) g/dL Hct 41.7 L (42.0-52.0) % Plt Count 224 (150-375) k/mm3 [facility] 11/25/24 05:59 Sodium 138 Potassium 4.3 Chloride 114 H Carbon Dioxide 21 L BUN 5 L Creatinine 0.80 Glucose 175 H Calcium 8.2 L Attestation Student Attestation Assessment: This is a 54-year-old gentleman who underwent laparotomy for ruptured viscus. He was found to have leukocytosis and was referred to Hematology-Oncology for evaluation. Plan: His WBCs remain high at 29.2 with predominance of neutrophils. We planned flow cytometry and genetic studies (BCG/ABL)
--- NOTE | 2024-11-25 13:32 | PM.PNGS ---
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 I turned the bolus dose down from 2 mg to 1 mg per dose earlier this morning. He was too sedated on the higher dose. He is now comfortable but not somnolent. Doing well postop day 1. Recheck labs and exam again tomorrow. Up in chair today. Continue nasogastric tube and Guidry catheter for now. (2) Diverticulitis of intestine with perforation and abscess without bleeding: Qualifiers: Diverticulitis site: large intestine Qualified Code(s): K57.20 - Diverticulitis of large intestine with perforation and abscess without bleeding Code(s): K57.80 - Diverticulitis of intestine, part unspecified, with perforation and abscess without bleeding Status: Acute Assessment and Plan: Pathology pending. Resection yesterday. 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 Subjective Subjective Date/Time Seen: 11/25/24 13:32 Post Op day: 1 Patient reports: no new complaints, pain is less, no flatus, no bowel movement and afebrile Exam Const: General: comfortable and no acute distress Orientation/consciousness: patient oriented x3 GI: Inspection: no abdominal wall ecchymosis, non-distended, incision (Dressing dry and intact) and scaphoid GI Palp: Yes Firmness to palpation present (GI) (Right side), Yes Tenderness to palpation present (GI), No Guarding due to palpation present (GI), No Palpable mass present and No Rebound tenderness present Auscultation: absent bowel sounds Neuro: General: patient oriented x3 and no focal motor deficits Extrem: General: no calf tenderness and no edema Psych: Affect: normal affect Insight: Good insight present (Psych) Judgement: Good judgement present (Psych) Objective Data Vital Signs Vital Signs: Vital Signs - 24 hr 12/31/24 13:47 11/24/24 14:00 11/24/24 19:51 Temperature 37.1 C 36.9 C 36.9 C Pulse Rate 89 86 98 Respiratory Rate 16 16 24 H Blood Pressure 141/79 H 140/82 134/73 Pulse Oximetry 96 96 95 Oxygen Delivery Simple Face Mask Oxygen Flow Rate 6 11/24/24 20:05 11/24/24 20:20 11/24/24 20:30 Temperature Pulse Rate 98 98 Respiratory Rate 20 20 Blood Pressure 131/84 128/86 Pulse Oximetry 96 96 88 L Oxygen Delivery Simple Face Mask Room Air Nasal Cannula Oxygen Flow Rate 6 2 11/24/24 20:35 11/24/24 20:50 11/24/24 21:05 Temperature 36.7 C Pulse Rate 94 99 98 Respiratory Rate 22 H 18 20 Blood Pressure 143/70 H 140/76 153/72 H Pulse Oximetry 93 93 94 Oxygen Delivery Nasal Cannula Nasal Cannula Nasal Cannula Oxygen Flow Rate 2 2 2 11/24/24 21:15 11/24/24 21:30 11/24/24 22:13 Temperature 36.1 C L 36.2 C L Pulse Rate 55 L 74 98 Respiratory Rate 24 H 24 H 24 H Blood Pressure 145/79 H 157/75 H Pulse Oximetry 95 97 Oxygen Delivery Oxygen Flow Rate 11/24/24 22:55 11/24/24 23:52 11/25/24 02:18 Temperature 36.2 C L 36.4 C Pulse Rate 78 52 L Respiratory Rate 22 H 16 Blood Pressure 170/84 H 133/79 Pulse Oximetry 98 97 96 Oxygen Delivery Nasal Cannula Oxygen Flow Rate 2 11/25/24 04:35 11/25/24 06:52 11/25/24 09:20 Temperature 36.9 C 36.8 C Pulse Rate 96 101 H Respiratory Rate 20 16 Blood Pressure 128/88 116/73 Pulse Oximetry 98 97 94 Oxygen Delivery Nasal Cannula Oxygen Flow Rate 2 11/25/24 10:52 Temperature 36.7 C Pulse Rate 108 H Respiratory Rate 18 Blood Pressure 103/75 Pulse Oximetry 97 Oxygen Delivery Oxygen Flow Rate Intake/Output Intake/Output: Intake & Output 11/22/24 11/23/24 11/24/24 11/25/24 23:59 23:59 23:59 23:59 Intake Total 3080 2741 750 1250 Output Total -160 1275 Balance 3080 2741 910 -25 Meds/Results Medications: Active Medications Generic Name Dose Route Start Last Admin Trade Name Freq PRN Reason Stop Dose Admin Diazepam 5 mg 11/19/24 19:19 11/23/24 21:41 Diazepam (*Crx) 5 Mg Tablet PO 5 mg QHS PRN Administration Sleep Enoxaparin Sodium 40 mg 11/25/24 09:00 11/25/24 09:19 Enoxaparin 40 Mg/0.4 Ml Syringe SUB-Q 40 mg DAILY LORETA Administration Famotidine 20 mg 11/24/24 21:07 11/25/24 09:20 Famotidine 20 Mg/2 Ml Vial IV PUSH 20 mg Q12HR LORETA Administration Piperacillin/Tazobactam/Dextrose 3.375 gm in 50 mls @ 100 mls/hr 11/20/24 00:00 11/25/24 12:45 Zosyn 3.375 Gm/Ns 50 Ml IVPB 50 mls/hr Q6H LORETA Administration Potassium Chloride/Dextrose/Sod Cl 1,000 mls @ 125 mls/hr 11/24/24 21:07 11/25/24 06:17 Kcl 40 Meq/D5ns IV CONT 125 mls/hr .Q8H LORETA Administration Morphine Sulfate 150 mg/ 30 mls @ 0.2 mls/hr 11/24/24 21:25 11/24/24 22:13 Sodium Chloride IV CONT 1 mg/hr PRN PRN 0.2 mls/hr Pain management Administration Protocol 1 MG/HR Lorazepam 1 mg 11/24/24 21:07 Lorazepam Inj (*Crx) 2 Mg/Ml Vial IV PUSH Q6H PRN Anxiety Naloxone HCl 0.1 mg 11/25/24 10:34 Naloxone Hcl 0.4 Mg/Ml Vial IV PUSH Q5MIN PRN Opiate Reversal Ondansetron HCl 4 mg 11/24/24 21:07 11/25/24 00:58 Ondansetron Inj 4 Mg/2 Ml Vial IV PUSH 4 mg Q4H PRN Administration Nausea And Vomiting Phenol 1 spray 11/25/24 10:37 11/25/24 12:52 Phenol/Sod Pheno Douglas Kessler (*Bkc) MUCOUS MEM 1 spray PRN PRN Administration Sore Throat Saccharomyces Boulardii 250 mg 11/23/24 17:00 11/24/24 08:16 Saccharomyces Bonallelydii 250 Mg Capsule PO 250 mg BID LORETA Administration Radiology Results: ITS Impressions Catheter Placement CT 11/23/24 14:32 IMPRESSION: 1. Successful CT-guided perisigmoid abscess drainage. 2. 5 mL of opaque, burks fluid was sent for aerobic and anaerobic cultures. Abdomen/Pelvis CT 11/23/24 19:27 IMPRESSION: 1. Sigmoid diverticulitis with previously seen abscesses in the area. Left drainage catheter is seen. Minimal fat stranding in the left paracolic gutter. Early peritonitis should be considered. Clinical correlation advised. 2. Minimal air in the abdomen with fluid around the liver. 3. Dilated small bowel loops suggestive of ileus. Follow-up advised. Chest X-Ray 11/24/24 13:20 Impression: Linear scarring left lung base, otherwise clear lungs. Labs Labs: Laboratory Results - last 24 hr 11/24/24 11/25/24 12:48 05:59 WBC 29.2 H RBC 4.74 Hgb 14.0 Hct 41.7 L MCV 88.0 MCH 29.5 MCHC 33.6 RDW 14.4 Plt Count 224 MPV 11.5 H Sodium 138 Potassium 4.3 Chloride 114 H Carbon Dioxide 21 L Anion Gap 3 L BUN 5 L Creatinine 0.80 Estim Creat Clear Calc 99 Estimated GFR > 60 Glucose 175 H Calcium 8.2 L Blood Type O Positive Antibody Screen Negative
--- NOTE | 2024-11-25 14:45 | WPDANESPN ---
Anes - Prog Note Post-Op Date/Time: 11/25/24 14:45 Cardiovascular status: normal Respiratory status: normal Airway patency: baseline Mental status: baseline Post-Op hydration status: normal Vital Signs: Last Vital Signs Temp 98.0 F 11/25/24 10:52 Pulse 108 H 11/25/24 10:52 Resp 18 11/25/24 10:52 BP 103/75 11/25/24 10:52 Pulse Ox 97 11/25/24 10:52 O2 Del Method Nasal Cannula 11/25/24 09:20 O2 Flow Rate 2 11/25/24 09:20 Pain Score (VAS): 4 I/O: Intake & Output 11/24/24 11/25/24 11/25/24 23:59 07:59 15:59 Intake Total 300 1250 50 Output Total -190 1275 Balance 490 -25 50 Laboratory Tests 11/25/24 05:59 11/25/24 05:59 11/25/24 05:59 WBC 29.2 H RBC 4.74 Hgb 14.0 Hct 41.7 L MCV 88.0 MCH 29.5 MCHC 33.6 RDW 14.4 Plt Count 224 MPV 11.5 H Sodium 138 Potassium 4.3 Chloride 114 H Carbon Dioxide 21 L Anion Gap 3 L BUN 5 L Creatinine 0.80 Estim Creat Clear Calc 99 Estimated GFR > 60 Glucose 175 H Calcium 8.2 L Microbiology 11/19/24 17:21 Blood Blood Culture - Final Staphylococcus hominis 11/19/24 17:21 Blood Blood Culture - Preliminary Escherichia Coli 11/23/24 14:08 Abscess Anaerobic Culture - Preliminary 11/23/24 14:08 Abscess Aerobic Culture - Preliminary Escherichia Coli 11/23/24 20:31 Blood Blood Culture - Preliminary 11/23/24 20:30 Blood Blood Culture - Preliminary Patient Feedback: Patient satisfied with anesthetic care. Pt verbalized dissatisfaction with pain management post operatively, stating he was in his room in pain for an hour & 15 minutes in extreme pain before receiving intervention. pt does state he does have good pain management now.
[2024-11-25] MEDS: KCL 40 MEQ/D5/0.9% SOD CHL 1,000 ML 100 ML IV CONT (23:12)
[2024-11-26] VITALS (7 sets, daily range): BP systolic 109–128; BP diastolic 66–77; PULSE 82–102; RESP 12–18; TEMP 36.6–37.1; O2SAT 92–94; BMI 28.9
[2024-11-26] MEDS: PIPERACILLN/TAZ 3.375GM/NS50ML 3.375 GM/50 ML BAG IVPB ×4 (05:21→23:01)
[2024-11-26] MEDS: SODIUM CHLORIDE 0.9% IV CONT (06:00)
[2024-11-26] MEDS: MORPHINE SULFATE IV CONT (06:00)
[2024-11-26 06:37] LABS: Basophils Absolute Auto 0.1 K/mm3 (0.0-0.1); Basophils Percent Auto 0.3 % (0.2-1.2); Eosinophils Absolute Auto 0.2 K/mm3 (0-0.3); Eosinophils Percent Auto 0.7 % (0-4.4); Hematocrit 36.8 % (42.0-52.0); Immature Granulocyte Absolute 0.07 K/mm3 (0.00-0.031); Immature Granulocyte Percent A 0.3 % (0-0.5); Lymphocytes Absolute Auto 15.37 K/mm3 (0.9-3.2); Lymphocytes Percent Auto 66.8 % (18.3-44.2); Mean Corpuscular HGB Conc 32.6 g/dl (32-36); Mean Corpuscular Hemoglobin 29.2 pg (26-34); Mean Corpuscular Volume 89.5 fl (80-100); Mean Platelet Volume 11.1 fl (7.4-10.4); Monocytes Absolute Auto 0.5 K/mm3 (0.1-0.6); Monocytes Percent Auto 2.3 % (2.6-8.5); Neutrophils Absolute Auto 6.8 K/mm3 (1.3-6.7); Neutrophils Percent Auto 29.6 % (45.5-73.1); Platelet Count Result 228 k/mm3 (150-375); Red Blood Count 4.11 M/mm3 (4.6-6.20); Red Cell Distribution Width 14.8 % (11.5-14.5)
[2024-11-26 06:55] LABS: Alanine Aminotransferase 17 U/L (6-50); Albumin Level 2.6 g/dL (3.5-5.1); Alkaline Phosphatase 65 U/L (38-126); Anion Gap -1 mmol/L (4-12); Aspartate Amino Transferase 23 U/L (17-59); Bilirubin,Total 0.4 mg/dL (0.2-1.3); Blood Urea Nitrogen 3 mg/dL (9-20); Carbon Dioxide 28 mmol/L (22-30); Chloride 113 mmol/L (98-107); Estimated CRCL calculation 89 ml/min; Estimated Glomerular Filt Rate > 60; Glucose 127 mg/dL (65-110); Potassium 3.9 mmol/L (3.4-5.0); Sodium 140 mmol/L (137-145)
[2024-11-26 07:23] LABS: CRP 26.3 mg/dL (<1.0)
[2024-11-26 07:43] LABS: Atypical Lymphocytes Present; Platelet Estimate Adequate (Adequate); Schistocytes None Seen; Smudge Cells PRESENT
[2024-11-26] MEDS: ENOXAPARIN 40 MG/0.4 ML SYRINGE SUB-Q (08:35)
[2024-11-26] MEDS: FAMOTIDINE 20 MG/2 ML VIAL IV PUSH ×2 (08:35→20:51)
[2024-11-26] MEDS: KCL 40 MEQ/D5/0.9% SOD CHL 1,000 ML 80 ML IV CONT ×2 (11:02→23:03)
[2024-11-26 11:53] LABS: Glucose Point of Care 124 mg/dl (65-105)
--- NOTE | 2024-11-26 14:08 | PM.PNGS ---
Progress Note: A&P Assessment and Plan (1) History of open sigmoidectomy: Code(s): Z98.890 - Other specified postprocedural states; Z90.49 - Acquired absence of other specified parts of digestive tract Status: Acute Assessment and Plan: Postop day 2 following sigmoidectomy. Postoperative pain is well controlled on UNIT CONTROL CLERK. Awaiting return of bowel function, continue NG tube and bowel rest. Will have patient get up to chair this afternoon with staff. Continue Guidry until he is mobilizing more. Repeat labs and exam tomorrow. (2) Diverticulitis of intestine with perforation and abscess without bleeding: Qualifiers: Diverticulitis site: large intestine Qualified Code(s): K57.20 - Diverticulitis of large intestine with perforation and abscess without bleeding Code(s): K57.80 - Diverticulitis of intestine, part unspecified, with perforation and abscess without bleeding Status: Acute Assessment and Plan: Pathology pending. 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 Drain site healing well. (4) Lymphocytosis: Code(s): D72.820 - Lymphocytosis (symptomatic) Status: Chronic Assessment and Plan: Improving on labs today, leukocytosis likely due to stress of surgery. Repeat CBC with diff tomorrow. Plan I have discussed the patient's case and plan of care with Dr. Moran. Subjective Subjective Date/Time Seen: 11/26/24 14:08 Patient reports: feels better (Less somnolent and more alert today on UNIT CONTROL CLERK at lesser dose), no flatus, no bowel movement and afebrile Interval history: Patient reports feeling better today. He reports his postoperative pain is well controlled with the UNIT CONTROL CLERK pump. He denies any nausea. No documented NG tube output, but there is about 200-300 cc in the canister at the bedside. Good urine output with Guidry catheter still in place. He has not been out of bed since surgery. He reports he has been sitting at the side of the bed. He plans to get up to the chair in the next hour with staff. Exam Const: General: comfortable and no acute distress Orientation/consciousness: patient oriented x3 GI: Inspection: non-distended and incision (Dry and healing well, no erythema, luis e intact) GI Palp: Yes Soft to palpation, Yes Tenderness to palpation present (GI) (Expected incisional tenderness) and No Guarding due to palpation present (GI) Auscultation: absent bowel sounds Objective Data Vital Signs Vital Signs: Vital Signs - 24 hr 11/25/24 14:30 11/25/24 14:52 11/25/24 18:00 Temperature 98 F 98.0 F 98.0 F Pulse Rate 89 100 100 Respiratory Rate 18 18 18 Blood Pressure 108/72 116/78 120/75 Pulse Oximetry 99 99 99 Oxygen Delivery Fraction of Inspired Oxygen 11/25/24 20:00 11/25/24 21:11 11/25/24 23:19 Temperature 98.5 F 98.8 F Pulse Rate 98 96 Respiratory Rate 14 14 Blood Pressure 127/77 119/74 Pulse Oximetry 95 99 Oxygen Delivery Room Air Fraction of Inspired Oxygen 11/26/24 04:00 11/26/24 06:00 11/26/24 06:00 Temperature 98.8 F Pulse Rate 102 H 98 98 Respiratory Rate 12 14 14 Blood Pressure 114/70 Pulse Oximetry 94 Oxygen Delivery Fraction of Inspired Oxygen 11/26/24 08:00 11/26/24 08:00 11/26/24 12:00 Temperature 98.4 F Pulse Rate 90 84 Respiratory Rate 15 16 Blood Pressure 124/77 Pulse Oximetry 93 Oxygen Delivery Room Air Fraction of Inspired Oxygen 11/26/24 12:00 11/26/24 14:07 Temperature Pulse Rate 82 Respiratory Rate 16 Blood Pressure Pulse Oximetry 94 Oxygen Delivery Room Air Fraction of Inspired Oxygen 21 Intake/Output Intake/Output: Intake & Output 11/23/24 11/24/24 11/25/24 11/26/24 23:59 23:59 23:59 23:59 Intake Total 2741 750 3401.7 1128.3 Output Total -160 2375 850 Balance 2741 910 1026.7 278.3 Meds/Results Medications: Active Medications Generic Name Dose Route Start Last Admin Trade Name Freq PRN Reason Stop Dose Admin Diazepam 5 mg 11/19/24 19:19 11/23/24 21:41 Diazepam (*Crx) 5 Mg Tablet PO 5 mg QHS PRN Administration Sleep Enoxaparin Sodium 40 mg 11/25/24 09:00 11/26/24 08:35 Enoxaparin 40 Mg/0.4 Ml Syringe SUB-Q 40 mg DAILY LORETA Administration Famotidine 20 mg 11/24/24 21:07 11/26/24 08:35 Famotidine 20 Mg/2 Ml Vial IV PUSH 20 mg Q12HR LORETA Administration Piperacillin/Tazobactam/Dextrose 3.375 gm in 50 mls @ 100 mls/hr 11/20/24 00:00 11/26/24 11:32 Zosyn 3.375 Gm/Ns 50 Ml IVPB Infused Q6H LORETA Infusion Potassium Chloride/Dextrose/Sod Cl 1,000 mls @ 80 mls/hr 11/24/24 21:07 11/26/24 11:02 Kcl 40 Meq/D5ns IV CONT 80 mls/hr .[id number] LORETA Administration Morphine Sulfate 150 mg/ 30 mls @ 0.2 mls/hr 11/24/24 21:25 11/26/24 12:00 Sodium Chloride IV CONT 1 mg/hr PRN PRN 0.2 mls/hr Pain management Titration Protocol 1 MG/HR Lorazepam 1 mg 11/24/24 21:07 Lorazepam Inj (*Crx) 2 Mg/Ml Vial IV PUSH Q6H PRN Anxiety Naloxone HCl 0.1 mg 11/25/24 10:34 Naloxone Hcl 0.4 Mg/Ml Vial IV PUSH Q5MIN PRN Opiate Reversal Ondansetron HCl 4 mg 11/24/24 21:07 11/25/24 00:58 Ondansetron Inj 4 Mg/2 Ml Vial IV PUSH 4 mg Q4H PRN Administration Nausea And Vomiting Phenol 1 spray 11/25/24 10:37 11/25/24 12:52 Phenol/Sod Pheno [place] Kessler (*Bkc) MUCOUS MEM 1 spray PRN PRN Administration Sore Throat Saccharomyces Boulardii 250 mg 11/23/24 17:00 11/24/24 08:16 Saccharomyces Boulardii 250 Mg Capsule PO 250 mg BID LORETA Administration Radiology Results: ITS Impressions Catheter Placement CT 11/23/24 14:32 IMPRESSION: 1. Successful CT-guided perisigmoid abscess drainage. 2. 5 mL of opaque, burks fluid was sent for aerobic and anaerobic cultures. Abdomen/Pelvis CT 11/23/24 19:27 IMPRESSION: 1. Sigmoid diverticulitis with previously seen abscesses in the area. Left drainage catheter is seen. Minimal fat stranding in the left paracolic gutter. Early peritonitis should be considered. Clinical correlation advised. 2. Minimal air in the abdomen with fluid around the liver. 3. Dilated small bowel loops suggestive of ileus. Follow-up advised. Chest X-Ray 11/24/24 13:20 Impression: Linear scarring left lung base, otherwise clear lungs. Abdomen X-Ray 11/26/24 05:23 Impression: NG tube in satisfactory position. Labs Labs: Laboratory Results - last 24 hr 11/26/24 11/26/24 05:51 11:38 WBC 23.0 H RBC 4.11 L Hgb 12.0 L Hct 36.8 L MCV 89.5 MCH 29.2 MCHC 32.6 RDW 14.8 H Plt Count 228 MPV 11.1 H Immature Gran % (Auto) 0.3 Neut % (Auto) 29.6 L Lymph % (Auto) 66.8 H [place] % (Auto) 2.3 L Eos % (Auto) 0.7 Baso % (Auto) 0.3 Lymph # (Auto) 15.37 H [place] # (Auto) 0.5 Eos # (Auto) 0.2 Baso # (Auto) 0.1 Abs Immat Gran (auto) 0.07 H Absolute Neuts (auto) 6.8 H Absolute Nucleated RBC 0.000 Nucleated RBC % 0.0 Atypical Lymphocytes Present Smudge Cells Present Platelet Estimate Adequate Schistocytes None seen Sodium 140 Potassium 3.9 Chloride 113 H Carbon Dioxide 28 Anion Gap -1 L BUN 3 L Creatinine 0.90 Estim Creat Clear Calc 89 Estimated GFR > 60 Glucose 127 H POC Capillary Glucose 124 H Calcium 8.0 L Total Bilirubin 0.4 AST 23 ALT 17 Alkaline Phosphatase 65 C-Reactive Protein 26.3 H Total Protein 5.0 L Albumin 2.6 L
[2024-11-26 18:45] LABS: Glucose Point of Care 116 mg/dl (65-105)
[2024-11-26 23:44] LABS: Glucose Point of Care 126 mg/dl (65-105)
[2024-11-27] VITALS (8 sets, daily range): BP systolic 117–152; BP diastolic 80–90; PULSE 79–88; RESP 12–18; TEMP 36.4–36.8; O2SAT 94–96
[2024-11-27] MEDS: PIPERACILLN/TAZ 3.375GM/NS50ML 3.375 GM/50 ML BAG IVPB ×3 (05:01→16:58)
[2024-11-27 06:10] LABS: Glucose Point of Care 125 mg/dl (65-105)
[2024-11-27 07:04] LABS: Basophils Absolute Auto 0.1 K/mm3 (0.0-0.1); Basophils Percent Auto 0.3 % (0.2-1.2); Eosinophils Absolute Auto 0.3 K/mm3 (0-0.3); Eosinophils Percent Auto 1.6 % (0-4.4); Hematocrit 34.3 % (42.0-52.0); Hemoglobin 11.1 g/dL (14.0-18.0); Immature Granulocyte Absolute 0.04 K/mm3 (0.00-0.031); Immature Granulocyte Percent A 0.2 % (0-0.5); Lymphocytes Absolute Auto 14.46 K/mm3 (0.9-3.2); Lymphocytes Percent Auto 72.5 % (18.3-44.2); Mean Corpuscular HGB Conc 32.4 g/dl (32-36); Mean Corpuscular Hemoglobin 29.1 pg (26-34); Mean Platelet Volume 10.9 fl (7.4-10.4); Monocytes Absolute Auto 0.6 K/mm3 (0.1-0.6); Monocytes Percent Auto 3.2 % (2.6-8.5); Neutrophils Absolute Auto 4.4 K/mm3 (1.3-6.7); Neutrophils Percent Auto 22.2 % (45.5-73.1); Platelet Count Result 251 k/mm3 (150-375); Red Blood Count 3.81 M/mm3 (4.6-6.20); Red Cell Distribution Width 14.9 % (11.5-14.5); White Blood Count 19.9 K/mm3 (4.5-10.0)
[2024-11-27 07:08] LABS: Alanine Aminotransferase 18 U/L (6-50); Albumin Level 2.7 g/dL (3.5-5.1); Alkaline Phosphatase 66 U/L (38-126); Anion Gap 0 mmol/L (4-12); Aspartate Amino Transferase 25 U/L (17-59); Bilirubin,Total 0.6 mg/dL (0.2-1.3); Blood Urea Nitrogen 5 mg/dL (9-20); Calcium 8.2 mg/dL (8.4-10.2); Carbon Dioxide 32 mmol/L (22-30); Chloride 107 mmol/L (98-107); Estimated CRCL calculation 99 ml/min; Estimated Glomerular Filt Rate > 60; Glucose 116 mg/dL (65-110); Potassium 3.7 mmol/L (3.4-5.0); Sodium 139 mmol/L (137-145)
[2024-11-27] MEDS: FAMOTIDINE 20 MG/2 ML VIAL IV PUSH ×2 (08:24→20:34)
[2024-11-27] MEDS: ENOXAPARIN 40 MG/0.4 ML SYRINGE SUB-Q (08:24)
[2024-11-27] MEDS: LIDOCAINE 1% PF INJ 5 ML VIAL INFILTRATE (11:30)
[2024-11-27 11:38] LABS: Glucose Point of Care 115 mg/dl (65-105)
[2024-11-27] MEDS: KCL 40 MEQ/D5/0.9% SOD CHL 1,000 ML 80 ML IV CONT (12:07)
[2024-11-27] MEDS: CENTRAL LINE FLUSH 10 ML IV PUSH ×2 (12:07→20:34)
--- NOTE | 2024-11-27 16:19 | PM.PNGS ---
Progress Note: A&P Assessment and Plan (1) History of open sigmoidectomy: Code(s): Z98.890 - Other specified postprocedural states; Z90.49 - Acquired absence of other specified parts of digestive tract Status: Acute Assessment and Plan: Now using PLASTICS ENGINEERING TEACHER much less. Still no bowel sounds, no flatus or BM. Wound is healing well. Getting out of bed much more. Will DC Guidry catheter. Will have PICC line placed and start TPN as patient has not eaten well in several days and will not likely starting eating for several days. Continue to follow labs and physical exam closely. Doing okay so far but still await return bowel function (2) Protein-calorie malnutrition, moderate: Code(s): E44.0 - Moderate protein-calorie malnutrition Status: Acute Assessment and Plan: Start Clinimix and lipid TPN after PICC line placed. (3) Diverticulitis of intestine with perforation and abscess without bleeding: Qualifiers: Diverticulitis site: large intestine Qualified Code(s): K57.20 - Diverticulitis of large intestine with perforation and abscess without bleeding Code(s): K57.80 - Diverticulitis of intestine, part unspecified, with perforation and abscess without bleeding Status: Acute Assessment and Plan: Sigmoidectomy done 11/24/2024 (4) Colocutaneous fistula: Code(s): K63.2 - Fistula of intestine Status: Acute Assessment and Plan: Repaired with sigmoidectomy (5) Lymphocytosis: Code(s): D72.820 - Lymphocytosis (symptomatic) Status: Chronic Assessment and Plan: Protein electrophoresis has been ordered by Hematology. Subjective Subjective Date/Time Seen: 11/27/24 16:19 Post Op day: 3 Patient reports: no new complaints, feels better, pain is less, no flatus, no bowel movement and afebrile Exam Const: General: comfortable and no acute distress Orientation/consciousness: patient oriented x3 GI: Inspection: non-distended, incision (Dry and healing well) and scaphoid GI Palp: Yes Soft to palpation, Yes Tenderness to palpation present (GI), No Guarding due to palpation present (GI) and No Rebound tenderness present Auscultation: absent bowel sounds Neuro: General: patient oriented x3 and no focal motor deficits Extrem: General: no calf tenderness and no edema Psych: Affect: normal affect Insight: Good insight present (Psych) Judgement: Good judgement present (Psych) Objective Data Vital Signs Vital Signs: Vital Signs - 24 hr 11/26/24 20:00 11/26/24 20:28 11/27/24 04:00 Temperature 36.8 C 36.8 C Pulse Rate 92 82 Respiratory Rate 18 18 Blood Pressure 109/66 135/88 Pulse Oximetry 92 94 Oxygen Delivery Room Air 11/27/24 07:55 11/27/24 08:00 11/27/24 12:00 Temperature 36.6 C 36.7 C Pulse Rate 88 79 Respiratory Rate 18 18 Blood Pressure 117/80 131/81 Pulse Oximetry 95 94 Oxygen Delivery Room Air 11/27/24 12:24 Temperature Pulse Rate 84 Respiratory Rate 18 Blood Pressure Pulse Oximetry Oxygen Delivery Intake/Output Intake/Output: Intake & Output 11/24/24 11/25/24 11/26/24 11/27/24 23:59 23:59 23:59 23:59 Intake Total 750 3401.7 2441.6 1050 Output Total -160 2375 2850 1925 Balance 910 1026.7 -408.4 -875 Meds/Results Medications: Active Medications Generic Name Dose Route Start Last Admin Trade Name Freq PRN Reason Stop Dose Admin Diazepam 5 mg 11/19/24 19:19 11/23/24 21:41 Diazepam (*Crx) 5 Mg Tablet PO 5 mg QHS PRN Administration Sleep Enoxaparin Sodium 40 mg 11/25/24 09:00 11/27/24 08:24 Enoxaparin 40 Mg/0.4 Ml Syringe SUB-Q 40 mg DAILY LORETA Administration Famotidine 20 mg 11/24/24 21:07 11/27/24 08:24 Famotidine 20 Mg/2 Ml Vial IV PUSH 20 mg Q12HR LORETA Administration Piperacillin/Tazobactam/Dextrose 3.375 gm in 50 mls @ 100 mls/hr 11/20/24 00:00 11/27/24 12:06 Zosyn 3.375 Gm/Ns 50 Ml IVPB 100 mls/hr Q6H LORETA Administration Potassium Chloride/Dextrose/Sod Cl 1,000 mls @ 60 mls/hr 11/24/24 21:07 11/27/24 12:07 Kcl 40 Meq/D5ns IV CONT 80 mls/hr .[id number] LORETA Administration Lorazepam 1 mg 11/24/24 21:07 Lorazepam Inj (*Crx) 2 Mg/Ml Vial IV PUSH Q6H PRN Anxiety Naloxone HCl 0.1 mg 11/25/24 10:34 Naloxone Hcl 0.4 Mg/Ml Vial IV PUSH Q5MIN PRN Opiate Reversal Ondansetron HCl 4 mg 11/24/24 21:07 11/25/24 00:58 Ondansetron Inj 4 Mg/2 Ml Vial IV PUSH 4 mg Q4H PRN Administration Nausea And Vomiting Phenol 1 spray 11/25/24 10:37 11/25/24 12:52 Phenol/Sod Pheno [place] Kessler (*Bkc) MUCOUS MEM 1 spray PRN PRN Administration Sore Throat Saccharomyces Boulardii 250 mg 11/23/24 17:00 11/24/24 08:16 Saccharomyces Boulardii 250 Mg Capsule PO 250 mg BID LORETA Administration Sodium Chloride 20 ml 11/27/24 12:05 Central Line Flush IV PUSH PRN PRN after blood draws Sodium Chloride 10 ml 11/27/24 12:05 Central Line Flush IV PUSH PRN PRN with TPN bag changes Sodium Chloride 10 ml 11/27/24 14:00 11/27/24 12:07 Central Line Flush IV PUSH 10 ml Q8HR LORETA Administration Radiology Results: ITS Impressions Catheter Placement CT 11/23/24 14:32 IMPRESSION: 1. Successful CT-guided perisigmoid abscess drainage. 2. 5 mL of opaque, burks fluid was sent for aerobic and anaerobic cultures. Abdomen/Pelvis CT 11/23/24 19:27 IMPRESSION: 1. Sigmoid diverticulitis with previously seen abscesses in the area. Left drainage catheter is seen. Minimal fat stranding in the left paracolic gutter. Early peritonitis should be considered. Clinical correlation advised. 2. Minimal air in the abdomen with fluid around the liver. 3. Dilated small bowel loops suggestive of ileus. Follow-up advised. Abdomen X-Ray 11/27/24 05:46 Impression: NG tube in satisfactory position. Chest X-Ray 11/27/24 12:20 IMPRESSION: 1. PICC tip at the superior cavoatrial junction. 2. Worsened airspace opacities in the lower lung zones, likely atelectasis. Labs Labs: Laboratory Results - last 24 hr 11/26/24 11/26/2411/27/25 18:38 23:40 05:52 WBC RBC Hgb Hct MCV MCH MCHC RDW Plt Count MPV Immature Gran % (Auto) Neut % (Auto) Lymph % (Auto) [place] % (Auto) Eos % (Auto) Baso % (Auto) Lymph # (Auto) [place] # (Auto) Eos # (Auto) Baso # (Auto) Abs Immat Gran (auto) Absolute Neuts (auto) Absolute Nucleated RBC Nucleated RBC % Sodium Potassium Chloride Carbon Dioxide Anion Gap BUN Creatinine Estim Creat Clear Calc Estimated GFR Glucose POC Capillary Glucose 116 H 126 H 125 H Calcium Total Bilirubin AST ALT Alkaline Phosphatase Total Protein Albumin 11/27/24 11/27/24 06:01 11:25 WBC 19.9 H RBC 3.81 L Hgb 11.1 L Hct 34.3 L MCV 90.0 MCH 29.1 MCHC 32.4 RDW 14.9 H Plt Count 251 MPV 10.9 H Immature Gran % (Auto) 0.2 Neut % (Auto) 22.2 L Lymph % (Auto) 72.5 H [place] % (Auto) 3.2 Eos % (Auto) 1.6 Baso % (Auto) 0.3 Lymph # (Auto) 14.46 H [place] # (Auto) 0.6 Eos # (Auto) 0.3 Baso # (Auto) 0.1 Abs Immat Gran (auto) 0.04 H Absolute Neuts (auto) 4.4 Absolute Nucleated RBC 0.000 Nucleated RBC % 0.0 Sodium 139 Potassium 3.7 Chloride 107 Carbon Dioxide 32 H Anion Gap 0 L BUN 5 L Creatinine 0.80 Estim Creat Clear Calc 99 Estimated GFR > 60 Glucose 116 H POC Capillary Glucose 115 H Calcium 8.2 L Total Bilirubin 0.6 AST 25 ALT 18 Alkaline Phosphatase 66 Total Protein 5.0 L Albumin 2.7 L
[2024-11-27] MEDS: AMINO ACIDS 5%/D15W/E-LYTES/CA 1,000 ML with MULTIVITAMINS-12 INJ VIAL 1 1.25 ML, MULTI... 40 ML IV CONT (16:57)
[2024-11-27] MEDS: FAT EMULSIONS IV 20% 250 ML 20.83 ML IVPB (16:58)
[2024-11-27 17:02] LABS: Basophils Absolute Auto 0.1 K/mm3 (0.0-0.1); Basophils Percent Auto 0.3 % (0.2-1.2); Eosinophils Absolute Auto 0.3 K/mm3 (0-0.3); Eosinophils Percent Auto 1.6 % (0-4.4); Hematocrit 33.9 % (42.0-52.0); Hemoglobin 11.1 g/dL (14.0-18.0); Immature Granulocyte Absolute 0.03 K/mm3 (0.00-0.031); Immature Granulocyte Percent A 0.1 % (0-0.5); Lymphocytes Absolute Auto 14.72 K/mm3 (0.9-3.2); Lymphocytes Percent Auto 73.3 % (18.3-44.2); Mean Corpuscular HGB Conc 32.7 g/dl (32-36); Mean Corpuscular Hemoglobin 29.1 pg (26-34); Monocytes Absolute Auto 0.4 K/mm3 (0.1-0.6); Monocytes Percent Auto 2.1 % (2.6-8.5); Neutrophils Absolute Auto 4.5 K/mm3 (1.3-6.7); Neutrophils Percent Auto 22.6 % (45.5-73.1); Platelet Count Result 248 k/mm3 (150-375); Red Blood Count 3.81 M/mm3 (4.6-6.20); Red Cell Distribution Width 14.8 % (11.5-14.5); White Blood Count 20.1 K/mm3 (4.5-10.0)
[2024-11-27 17:14] LABS: Magnesium 2.3 mg/dL (1.6-2.3)
[2024-11-27 17:15] LABS: Partial Thromboplastin Time 50.5 Seconds (22.3-36.8)
[2024-11-27 17:29] LABS: Transferrin 110 mg/dL (206-381)
[2024-11-27 17:33] LABS: Platelet Estimate Adequate (Adequate); Schistocytes None Seen; Smudge Cells MANY
[2024-11-27 18:26] LABS: Glucose Point of Care 148 mg/dl (65-105)
[2024-11-27] MEDS: MORPHINE SULFATE (*CRX) 4 MG/ML INJ IV PUSH ×2 (20:34→23:42)
[2024-11-27] MEDS: ONDANSETRON INJ 4 MG/2 ML VIAL IV PUSH (20:34)
[2024-11-28] MEDS: PIPERACILLN/TAZ 3.375GM/NS50ML 3.375 GM/50 ML BAG IVPB ×5 (00:45→23:37)
[2024-11-28] MEDS: KCL 40 MEQ/D5/0.9% SOD CHL 1,000 ML 60 ML IV CONT (00:46)
[2024-11-28 00:52] LABS: Glucose Point of Care 140 mg/dl (65-105)
[2024-11-28 04:00] VITALS: BP 142/84; PULSE 75; RESP 12; TEMP 36.4; O2SAT 96
[2024-11-28] MEDS: MORPHINE SULFATE (*CRX) 4 MG/ML INJ IV PUSH ×3 (05:53→16:04)
[2024-11-28] MEDS: CENTRAL LINE FLUSH 10 ML IV PUSH ×3 (05:56→20:52)
[2024-11-28 06:12] LABS: Anion Gap 0 mmol/L (4-12); Blood Urea Nitrogen 6 mg/dL (9-20); Calcium 8.3 mg/dL (8.4-10.2); Carbon Dioxide 30 mmol/L (22-30); Chloride 104 mmol/L (98-107); Estimated CRCL calculation 112 ml/min; Estimated Glomerular Filt Rate > 60; Glucose 141 mg/dL (65-110); Phosphorus 2.6 mg/dL (2.5-4.5); Potassium 3.7 mmol/L (3.4-5.0); Sodium 134 mmol/L (137-145); Triglycerides 176 mg/dL (<150)
[2024-11-28 06:41] LABS: Glucose Point of Care 123 mg/dl (65-105)
[2024-11-28 07:43] LABS: Protein, Total 4.6 g/dL (6.1-8.1)
[2024-11-28 08:00] VITALS: BP 150/92; PULSE 77; RESP 15; TEMP 36.4; O2SAT 97
[2024-11-28] MEDS: FAMOTIDINE 20 MG/2 ML VIAL IV PUSH ×2 (08:23→20:52)
[2024-11-28] MEDS: ENOXAPARIN 40 MG/0.4 ML SYRINGE SUB-Q (08:23)
--- NOTE | 2024-11-28 10:53 | P.PNGS_ITS ---
Progress Note: A&P Assessment and Plan (1) Diverticulitis of intestine with perforation and abscess without bleeding: Qualifiers: Diverticulitis site: large intestine Qualified Code(s): K57.20 - Diverticulitis of large intestine with perforation and abscess without bleeding Code(s): K57.80 - Diverticulitis of intestine, part unspecified, with perforation and abscess without bleeding Status: Acute Assessment and Plan: still awaiting ROBF, cont NG decompression, TPN for now, encourage OOB/IS Subjective Subjective Date/Time Seen: 11/28/24 10:53 Interval history: feels ok, still c/o abd pain nathen c movt Review of Systems Review of Systems: All systems reviewed & are unremarkable except as noted in HPI and below Exam Const: General: cooperative, no acute distress and uncomfortable Resp: Auscultation: clear to auscultation bilaterally Cardio: Rate: regular rate Rhythm: regular rhythm GI: Inspection: normal to inspection, distended and incision GI Palp: Yes abdominal tenderness and Yes Soft to palpation Objective Data Vital Signs Vital Signs: Vital Signs - 24 hr 11/27/24 12:00 11/27/24 12:24 11/27/24 16:00 Temperature 36.7 C Pulse Rate 79 84 80 Respiratory Rate 18 18 18 Blood Pressure 131/81 Pulse Oximetry 94 Oxygen Delivery 11/27/24 16:00 11/27/24 16:37 11/27/24 20:00 Temperature 36.4 C L 36.4 C Pulse Rate 80 80 83 Respiratory Rate 18 18 12 Blood Pressure 146/81 H 152/84 H Pulse Oximetry 96 96 Oxygen Delivery 11/27/24 20:00 11/27/24 23:56 11/28/24 04:00 Temperature 36.5 C 36.4 C L Pulse Rate 79 75 Respiratory Rate 12 12 Blood Pressure 147/90 H 142/84 H Pulse Oximetry 96 96 Oxygen Delivery Room Air 11/28/24 08:00 11/28/24 08:00 Temperature 36.4 C Pulse Rate 77 Respiratory Rate 15 Blood Pressure 150/92 H Pulse Oximetry 97 Oxygen Delivery Room Air Intake/Output Intake/Output: Intake & Output 11/25/24 11/26/24 11/27/24 11/28/24 23:59 23:59 23:59 23:59 Intake Total 3401.7 2441.6 1798 519 Output Total 2375 2850 2425 500 Balance 1026.7 -408.4 -627 19 Meds/Results Medications: Active Medications Generic Name Dose Route Start Last Admin Trade Name Freq PRN Reason Stop Dose Admin Dextrose 12.5 gm 11/27/24 16:16 Dextrose 50% 25 Gm/50 Ml Syringe IV PUSH PRN PRN Hypoglycemia Protocol Diazepam 5 mg 11/19/24 19:19 11/23/24 21:41 Diazepam (*Crx) 5 Mg Tablet PO 5 mg QHS PRN Administration Sleep Enoxaparin Sodium 40 mg 11/25/24 09:00 11/28/24 08:23 Enoxaparin 40 Mg/0.4 Ml Syringe SUB-Q 40 mg DAILY LORETA Administration Famotidine 20 mg 11/24/24 21:07 11/28/24 08:23 Famotidine 20 Mg/2 Ml Vial IV PUSH 20 mg Q12HR LORETA Administration Fentanyl Citrate 12.5 mcg 11/27/24 16:25 Fentanyl Citrate Inj (*Crx) 100 Mcg/2 Ml Vial IV PUSH Q2H PRN Breakthrough Pain Rated 4-6 or NPO Glucagon 1 mg 11/27/24 16:16 Glucagon For Inj 1 Mg Vial IM PRN PRN Hypoglycemia Protocol Glucose 15 gm 11/27/24 16:16 Glucose Oral Gel 15 Gm Of Glucse In 37.5 Gm Tube PO PRN PRN Hypoglycemia Protocol Piperacillin/Tazobactam/Dextrose 3.375 gm in 50 mls @ 100 mls/hr 11/20/24 00 :00 11/28/24 05:54 Zosyn 3.375 Gm/Ns 50 Ml IVPB 100 mls/hr Q6H LORETA Administration Potassium Chloride/Dextrose/Sod Cl 1,000 mls @ 50 mls/hr 11/24/24 21:07 11/28/24 00:47 Kcl 40 Meq/D5ns IV CONT 0 mls/hr .Q20H LORETA Infusion Dextrose 1,000 mls @ 50 mls/hr 11/27/24 16:12 Dextrose 10% IV CONT .Q20H PRN if PN is interrupted Multivitamins 1.25 ml/ 1,002.5 mls @ 60 mls/hr 11/27/24 16:20 11/27/24 16:57 Multivitamins 1.25 ml/ Amino IV CONT 40 mls/hr Acids/Electrolytes/Dextrose .[id number] LORETA Administration Protocol Fat Emulsion Intravenous 250 mls @ 20.833 mls/hr 11/27/24 16:20 11/27/24 16:58 Lipids 20% IVPB 20.83 mls/hr Q24H LORETA Administration Dextrose 1,000 mls @ 100 mls/hr 11/27/24 16:16 Dextrose 5% 1,000 Ml IVPB PRN PRN Hypoglycemia Protocol Insulin Aspart 3 - 6 units 11/27/24 18:00 11/28/24 06:46 Insulin Aspart (*Bkc) 100 Units/Ml SUB-Q Not Given Q6HR [facility] Protocol Lorazepam 1 mg 11/24/24 21:07 Lorazepam Inj (*Crx) 2 Mg/Ml Vial IV PUSH Q6H PRN Anxiety Morphine Sulfate 2 mg 11/27/24 16:25 Morphine Sulfate (*Crx) 2 Mg/Ml Inj IV PUSH Q2H PRN Breakthrough Pain Rated 4-6 or NPO Morphine Sulfate 4 mg 11/27/24 16:25 11/28/24 08:26 Morphine Sulfate (*Crx) 4 Mg/Ml Inj IV PUSH 4 mg Q2H PRN Administration Breakthrough Pain Rated 7-10 or NPO Naloxone HCl 0.1 mg 11/25/24 10:34 Naloxone Hcl 0.4 Mg/Ml Vial IV PUSH Q5MIN PRN Opiate Reversal Naloxone HCl 0.1 mg 11/27/24 16:25 Naloxone Hcl 0.4 Mg/Ml Vial IV PUSH Q2M PRN Opiate Reversal Ondansetron HCl 4 mg 11/24/24 21:07 11/27/24 20:34 Ondansetron Inj 4 Mg/2 Ml Vial IV PUSH 4 mg Q4H PRN Administration Nausea And Vomiting Phenol 1 spray 11/25/24 10:37 11/25/24 12:52 Phenol/Sod Pheno [place] Kessler (*Bkc) MUCOUS MEM 1 spray PRN PRN Administration Sore Throat Saccharomyces Boulardii 250 mg 11/23/24 17:00 11/24/24 08:16 Saccharomyces Boulardii 250 Mg Capsule PO 250 mg BID LORETA Administration Sodium Chloride 20 ml 11/27/24 12:05 Central Line Flush IV PUSH PRN PRN after blood draws Sodium Chloride 10 ml 11/27/24 12:05 Central Line Flush IV PUSH PRN PRN with TPN bag changes Sodium Chloride 10 ml 11/27/24 14:00 11/28/24 05:56 Central Line Flush IV PUSH 10 ml Q8HR LORETA Administration Radiology Results: ITS Impressions Catheter Placement CT 11/23/24 14:32 IMPRESSION: 1. Successful CT-guided perisigmoid abscess drainage. 2. 5 mL of opaque, burks fluid was sent for aerobic and anaerobic cultures. Abdomen/Pelvis CT 11/23/24 19:27 IMPRESSION: 1. Sigmoid diverticulitis with previously seen abscesses in the area. Left drainage catheter is seen. Minimal fat stranding in the left paracolic gutter. Early peritonitis should be considered. Clinical correlation advised. 2. Minimal air in the abdomen with fluid around the liver. 3. Dilated small bowel loops suggestive of ileus. Follow-up advised. Abdomen X-Ray 11/27/24 05:46 Impression: NG tube in satisfactory position. Chest X-Ray 11/27/24 12:20 IMPRESSION: 1. PICC tip at the superior cavoatrial junction. 2. Worsened airspace opacities in the lower lung zones, likely atelectasis. Labs Labs: Laboratory Results - last 24 hr 11/27/24 11/27/24 11/27/24 05:57 11:25 16:55 WBC 20.1 H RBC 3.81 L Hgb 11.1 L Hct 33.9 L MCV 89.0 MCH 29.1 MCHC 32.7 RDW 14.8 H Plt Count 248 MPV 10.0 Immature Gran % (Auto) 0.1 Neut % (Auto) 22.6 L Lymph % (Auto) 73.3 H [place] % (Auto) 2.1 L Eos % (Auto) 1.6 Baso % (Auto) 0.3 Lymph # (Auto) 14.72 H [place] # (Auto) 0.4 Eos # (Auto) 0.3 Baso # (Auto) 0.1 Abs Immat Gran (auto) 0.03 Absolute Neuts (auto) 4.5 Absolute Nucleated RBC 0.000 Nucleated RBC % 0.0 Smudge Cells Many Platelet Estimate Adequate Schistocytes None seen APTT 50.5 H Sodium Potassium Chloride Carbon Dioxide Anion Gap BUN Creatinine Estim Creat Clear Calc Estimated GFR Glucose POC Capillary Glucose 115 H Calcium Phosphorus Magnesium 2.3 Transferrin 110 L Total Protein 4.6 L Triglycerides 11/27/24 11/28/24 11/28/24 18:22 00:49 05:51 WBC RBC Hgb Hct MCV MCH MCHC RDW Plt Count MPV Immature Gran % (Auto) Neut % (Auto) Lymph % (Auto) [place] % (Auto) Eos % (Auto) Baso % (Auto) Lymph # (Auto) [place] # (Auto) Eos # (Auto) Baso # (Auto) Abs Immat Gran (auto) Absolute Neuts (auto) Absolute Nucleated RBC Nucleated RBC % Smudge Cells Platelet Estimate Schistocytes APTT Sodium 134 L Potassium 3.7 Chloride 104 Carbon Dioxide 30 Anion Gap 0 L BUN 6 L Creatinine 0.70 Estim Creat Clear Calc 112 Estimated GFR > 60 Glucose 141 H POC Capillary Glucose 148 H 140 H Calcium 8.3 L Phosphorus 2.6 Magnesium Transferrin Total Protein Triglycerides 176 H 11/28/24 06:37 WBC RBC Hgb Hct MCV MCH MCHC RDW Plt Count MPV Immature Gran % (Auto) Neut % (Auto) Lymph % (Auto) [place] % (Auto) Eos % (Auto) Baso % (Auto) Lymph # (Auto) [place] # (Auto) Eos # (Auto) Baso # (Auto) Abs Immat Gran (auto) Absolute Neuts (auto) Absolute Nucleated RBC Nucleated RBC % Smudge Cells Platelet Estimate Schistocytes APTT Sodium Potassium Chloride Carbon Dioxide Anion Gap BUN Creatinine Estim Creat Clear Calc Estimated GFR Glucose POC Capillary Glucose 123 H Calcium Phosphorus Magnesium Transferrin Total Protein Triglycerides
--- NOTE | 2024-11-28 10:54 | PCNFU ---
Nutrition Follow-Up Complete: Inadequate energy intake related to NPO status as evidenced by diet order Goal:Meet estimated needs Pt progressing towards goal with TPN Pt current nutrition is NPO, TPN 04/08 running at 40ml/hr = 1182kcals, 48g protein. (56% energy needs, 56% protein needs) Nutrition recommendation: consider increasing rate to 70ml/hr to provide 1683kcals, 84g protein (80% energy needs, 100% protein needs) Last recorded weight is 93.4 kg. Bowel Motility: No BM as of yet Labs Reviewed: Hgb:11.1, HCT:33.9, NA:134, BUN:6, Glu:141 Meds Noted: insulin Skin: WNL Additional Notes: Pt started on TPN since he has been NPO x 4 days now. Current TPN meeting about 50% of his needs. Consider increasing TPN to rate of 70ml/hr. No BM at this time, no flatus Monitor diet orders, intake, wt, labs. Follow up every Saturday and Saturday per protocol.
[2024-11-28 12:00] VITALS: BP 147/94; PULSE 83; RESP 14; TEMP 36.6; O2SAT 98
[2024-11-28 12:41] LABS: Glucose Point of Care 142 mg/dl (65-105)
--- NOTE | 2024-11-28 13:18 | WPDCN ---
HPI Data of Consult Date/Time: 11/28/24 13:18 Requesting Physician: Jerson Moran MD Primary Care Provider: UNKNOWN,DOCTOR Consult Narrative Narrative: Jamie Solomon is a 54 year old male Review of Systems Review of Systems: Patient is day#3 post laparotomy for ruptured viscus. He has no new complaints. He is afebrile today. His examination isn't done a normal; bowel sounds diminished. CBC is noted with persistent lymphocytosis. Flow cytometry report is pending. Serum protein electrophoresis is pending as well. PENDING SALE TO [facility] Past Medical History Medical History (Updated 11/27/24 @ 16:24 by Jerson Moran MD) Chronic insomnia Erectile dysfunction Family History Family History Mother Depression Family history of multiple sclerosis Hypertension Family history of elevated blood lipids Family history of diabetes mellitus in first degree relative Grandparent Diabetes mellitus Family history of malignant neoplasm of brain, Onset Age: 69 Father Hypertension Social History Social History Smoking status: Never smoker Second hand tobacco smoke exposure: No Smoking end date: 11/25/09 Additional smoking assessment comments: uses Nicorette gum Alcohol intake: current Drinks per week: 8 Substance use: never Substance use type: marijuana Other substance usage details: THC gummies Do You Feel Safe in your Home?: Yes Lack of Transportation: No Lack of Food: Never True Current Housing: I Have Housing Concerned About Future Housing: No Difficulty Paying Gas/Electric Bills: No Difficulty Paying for Meds: No Currently Unemployed: No Education: Trade/Vocational Certificate Difficulty w/ Childcare or Family Care: No Living arrangements: with family 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 Gender identity (if verbalized by the patient): Male Spiritual care concerns: No Meds Home Medications and Allergies Home Medications ?Medication ?Instructions ?Recorded ?Confirmed ?Type Nicorette 1 gum PO DIRECTED 10/20/19 11/19/24 History sildenafil (pulm.hypertension) 20 20 mg PO DAILY PRN sexual activity 12/20/23 11/19/24 Rx mg tablet #30 tabs Allergies Allergy/AdvReac Type Severity Reaction Status Date / Time No Known Allergies Allergy Verified 11/24/24 14:05 Vital Signs Vital Signs - 24 hr 11/27/24 16:00 11/27/24 16:00 11/27/24 16:37 Temperature 36.4 C L Pulse Rate 80 80 80 Respiratory Rate 18 18 18 Blood Pressure 146/81 H Pulse Oximetry 96 Oxygen Delivery 11/27/24 20:00 11/27/24 20:00 11/27/24 23:56 Temperature 36.4 C 36.5 C Pulse Rate 83 79 Respiratory Rate 12 12 Blood Pressure 152/84 H 147/90 H Pulse Oximetry 96 96 Oxygen Delivery Room Air 11/28/24 04:00 11/28/24 08:00 11/28/24 08:00 Temperature 36.4 C L 36.4 C Pulse Rate 75 77 Respiratory Rate 12 15 Blood Pressure 142/84 H 150/92 H Pulse Oximetry 96 97 Oxygen Delivery Room Air Results Labs 11/27/24 16:55 11/28/24 05:51 Labs: Short CBC 11/27/24 Range/Units 16:55 WBC 20.1 H (4.5-10.0) K/mm3 Hgb 11.1 L (14.0-18.0) g/dL Hct 33.9 L (42.0-52.0) % Plt Count 248 (150-375) k/mm3 BMP 11/28/24 05:51 Sodium 134 L Potassium 3.7 Chloride 104 Carbon Dioxide 30 BUN 6 L Creatinine 0.70 Glucose 141 H Calcium 8.3 L Attestation Supervising Provider Attestation This is a 54-year-old gentleman admitted to the hospital because of abdominal pains. Imaging showed intraperitoneal air. He was diagnosed with ruptured viscus. He underwent laparotomy with bowel resection and is currently recovering from surgery uneventfully. He was found to have lymphocytosis and the Hematology-Oncology service was consulted. We proved review the peripheral blood and noted the present of occasional smudge cell. Flow cytometry and serum protein electrophoresis was ordered and the report is pending at this time. Plan: Continue to monitor his postsurgical progress. Flow cytometry and protein electrophoresis is pending. His CBC is otherwise stable at this time.
[2024-11-28] MEDS: AMINO ACIDS 5%/D15W/E-LYTES/CA 1,000 ML with MULTIVITAMINS-12 INJ VIAL 1 1.25 ML, MULTI... 40 ML IV CONT (14:12)
[2024-11-28] MEDS: FAT EMULSIONS IV 20% 250 ML 20.83 ML IVPB (14:12)
[2024-11-28 16:00] VITALS: BP 129/89; PULSE 94; RESP 13; TEMP 36.9; O2SAT 98
--- NOTE | 2024-11-28 16:03 | PC.NURSE ---
Patient's NG tube was pulled out during shower. This RN called Dr. Cunningham and was advised that we can leave NG out for now unless patient starts vomiting. Will monitor and re-insert if needed.
[2024-11-28 20:00] VITALS: BP 134/85; PULSE 80; RESP 14; TEMP 36.6; O2SAT 97
[2024-11-28] MEDS: KCL 40 MEQ/D5/0.9% SOD CHL 1,000 ML 50 ML IV CONT (20:42)
[2024-11-28 20:45] LABS: Glucose Point of Care 143 mg/dl (65-105)
[2024-11-28] MEDS: LORazepam INJ (*CRX) 2 MG/ML VIAL 1 MG IV PUSH (20:49)
[2024-11-28 22:22] LABS: Glucose Point of Care 137 mg/dl (65-105)
[2024-11-28 23:44] LABS: Glucose Point of Care 114 mg/dl (65-105)
[2024-11-29] VITALS: BP 149/88; PULSE 81; RESP 12; TEMP 36.4; O2SAT 97
[2024-11-29] MEDS: MORPHINE SULFATE (*CRX) 4 MG/ML INJ IV PUSH (00:37)
[2024-11-29] MEDS: MORPHINE SULFATE (*CRX) 2 MG/ML INJ IV PUSH ×7 (02:49→21:37)
[2024-11-29 04:00] VITALS: BP 150/90; PULSE 87; RESP 14; TEMP 36.3; O2SAT 96
[2024-11-29] MEDS: PIPERACILLN/TAZ 3.375GM/NS50ML 3.375 GM/50 ML BAG IVPB ×3 (05:12→18:13)
[2024-11-29] MEDS: CENTRAL LINE FLUSH 10 ML IV PUSH ×2 (05:13→21:38)
[2024-11-29 05:23] LABS: Hematocrit 37.6 % (42.0-52.0); Hemoglobin 12.5 g/dL (14.0-18.0); Mean Corpuscular HGB Conc 33.2 g/dl (32-36); Mean Corpuscular Volume 87.2 fl (80-100); Mean Platelet Volume 10.3 fl (7.4-10.4); Platelet Count Result 297 k/mm3 (150-375); Red Blood Count 4.31 M/mm3 (4.6-6.20); Red Cell Distribution Width 14.5 % (11.5-14.5); White Blood Count 24.2 K/mm3 (4.5-10.0)
[2024-11-29 05:37] LABS: CRP 8.8 mg/dL (<1.0)
[2024-11-29 05:42] LABS: Anion Gap 4 mmol/L (4-12); Blood Urea Nitrogen 10 mg/dL (9-20); Calcium 8.8 mg/dL (8.4-10.2); Carbon Dioxide 26 mmol/L (22-30); Chloride 107 mmol/L (98-107); Estimated CRCL calculation 112 ml/min; Estimated Glomerular Filt Rate > 60; Glucose 121 mg/dL (65-110); Phosphorus 3.5 mg/dL (2.5-4.5); Potassium 3.9 mmol/L (3.4-5.0); Sodium 137 mmol/L (137-145)
[2024-11-29 06:41] LABS: Glucose Point of Care 133 mg/dl (65-105)
[2024-11-29 08:00] VITALS: BP 148/92; PULSE 91; RESP 16; O2SAT 97
[2024-11-29] MEDS: FAMOTIDINE 20 MG/2 ML VIAL IV PUSH ×2 (09:39→21:37)
[2024-11-29] MEDS: ENOXAPARIN 40 MG/0.4 ML SYRINGE SUB-Q (09:39)
[2024-11-29] MEDS: AMINO ACIDS 5%/D15W/E-LYTES/CA 1,000 ML with MULTIVITAMINS-12 INJ VIAL 1 1.25 ML, MULTI... 40 ML IV CONT (09:40)
[2024-11-29 12:00] VITALS: BP 140/87; PULSE 88; RESP 14; O2SAT 97
--- NOTE | 2024-11-29 12:01 | P.PNGS_ITS ---
Progress Note: A&P Assessment and Plan (1) Diverticulitis of intestine with perforation and abscess without bleeding: Qualifiers: Diverticulitis site: large intestine Qualified Code(s): K57.20 - Diverticulitis of large intestine with perforation and abscess without bleeding Code(s): K57.80 - Diverticulitis of intestine, part unspecified, with perforation and abscess without bleeding Status: Acute Assessment and Plan: NG out overnight accidentally, pt refuses replacement at this point, exam be nign, +flatus, d/w need to replace if develops N/V, abd dist, cont NPO and TPN for now, cont abx, encourage OOB/IS Subjective Subjective Date/Time Seen: 11/29/24 12:01 Interval history: pt reports NG out overnight, feels better, +flatus Review of Systems Review of Systems: All systems reviewed & are unremarkable except as noted in HPI and below Exam Const: General: cooperative, comfortable and no acute distress Resp: Auscultation: clear to auscultation bilaterally Cardio: Rate: regular rate Rhythm: regular rhythm GI: Inspection: normal to inspection, non-distended and incision GI Palp: Yes abdominal tenderness and Yes Soft to palpation Objective Data Vital Signs Vital Signs: Vital Signs - 24 hr 11/28/24 16:00 11/28/24 20:00 11/28/24 20:00 Temperature 36.9 C 36.6 C Pulse Rate 94 80 Respiratory Rate 13 14 Blood Pressure 129/89 134/85 Pulse Oximetry 98 97 Oxygen Delivery Room Air 11/29/24 00:00 11/29/24 04:00 11/29/24 08:00 Temperature 36.4 C 36.3 C L Pulse Rate 81 87 91 Respiratory Rate 12 14 16 Blood Pressure 149/88 H 150/90 H 148/92 H Pulse Oximetry 97 96 97 Oxygen Delivery Intake/Output Intake/Output: Intake & Output 11/26/24 11/27/24 11/28/24 11/29/24 23:59 23:59 23:59 23:59 Intake Total 2441.6 1798 2769 878.7 Output Total 2850 2425 1100 Balance -408.4 -627 1669 878.7 Meds/Results Medications: Active Medications Generic Name Dose Route Start Last Admin Trade Name Freq PRN Reason Stop Dose Admin Dextrose 12.5 gm 11/27/24 16:16 Dextrose 50% 25 Gm/50 Ml Syringe IV PUSH PRN PRN Hypoglycemia Protocol Diazepam 5 mg 11/19/24 19:19 11/23/24 21:41 Diazepam (*Crx) 5 Mg Tablet PO 5 mg QHS PRN Administration Sleep Enoxaparin Sodium 40 mg 11/25/24 09:00 11/29/24 09:39 Enoxaparin 40 Mg/0.4 Ml Syringe SUB-Q 40 mg DAILY LORETA Administration Famotidine 20 mg 11/24/24 21:07 11/29/24 09:39 Famotidine 20 Mg/2 Ml Vial IV PUSH 20 mg Q12HR LORETA Administration Fentanyl Citrate 12.5 mcg 11/27/24 16:25 Fentanyl Citrate Inj (*Crx) 100 Mcg/2 Ml Vial IV PUSH Q2H PRN Breakthrough Pain Rated 4-6 or NPO Glucagon 1 mg 11/27/24 16:16 Glucagon For Inj 1 Mg Vial IM PRN PRN Hypoglycemia Protocol Glucose 15 gm 11/27/24 16:16 Glucose Oral Gel 15 Gm Of Glucse In 37.5 Gm Tube PO PRN PRN Hypoglycemia Protocol Piperacillin/Tazobactam/Dextrose 3.375 gm in 50 mls @ 100 mls/hr 11/20/24 00:00 11/29/24 05:39 Zosyn 3.375 Gm/Ns 50 Ml IVPB Infused Q6H LORETA Infusion Potassium Chloride/Dextrose/Sod Cl 1,000 mls @ 50 mls/hr 11/24/24 21:07 11/28/24 20:42 Kcl 40 Meq/D5ns IV CONT 50 mls/hr .Q20H LORETA Administration Dextrose 1,000 mls @ 50 mls/hr 11/27/24 16:12 Dextrose 10% IV CONT .Q20H PRN if PN is interrupted Multivitamins 1.25 ml/ 1,002.5 mls @ 60 mls/hr 11/27/24 16:20 11/29/24 09:40 Multivitamins 1.25 ml/ Amino IV CONT 40 mls/hr Acids/Electrolytes/Dextrose .[id number] LORETA Administration Protocol Fat Emulsion Intravenous 250 mls @ 20.833 mls/hr 11/27/24 16:20 11/28/24 14:12 Lipids 20% IVPB 20.83 mls/hr Q24H LORETA Administration Dextrose 1,000 mls @ 100 mls/hr 11/27/24 16:16 Dextrose 5% 1,000 Ml IVPB PRN PRN Hypoglycemia Protocol Insulin Aspart 3 - 6 units 11/27/24 18:00 11/29/24 05:03 Insulin Aspart (*Bkc) 100 Units/Ml SUB-Q Not Given Q6HR LORETA Protocol Lorazepam 1 mg 11/24/24 21:07 11/28/24 20:49 Lorazepam Inj (*Crx) 2 Mg/Ml Vial IV PUSH 1 mg Q6H PRN Administration Anxiety Miscellaneous Information 0 each 11/29/24 00:01 11/29/24 00:21 Zosyn Renew If Still Needs Or Will Auto D/C XX 12/29/24 00:00 Not Given CLARIFY LORETA Morphine Sulfate 2 mg 11/27/24 16:25 11/29/24 09:40 Morphine Sulfate (*Crx) 2 Mg/Ml Inj IV PUSH 2 mg Q2H PRN Administration Breakthrough Pain Rated 4-6 or NPO Morphine Sulfate 4 mg 11/27/24 16:25 11/29/24 00:37 Morphine Sulfate (*Crx) 4 Mg/Ml Inj IV PUSH 4 mg Q2H PRN Administration Breakthrough Pain Rated 7-10 or NPO Naloxone HCl 0.1 mg 11/25/24 10:34 Naloxone Hcl 0.4 Mg/Ml Vial IV PUSH Q5MIN PRN Opiate Reversal Naloxone HCl 0.1 mg 11/27/24 16:25 Naloxone Hcl 0.4 Mg/Ml Vial IV PUSH Q2M PRN Opiate Reversal Ondansetron HCl 4 mg 11/24/24 21:07 11/27/24 20:34 Ondansetron Inj 4 Mg/2 Ml Vial IV PUSH 4 mg Q4H PRN Administration Nausea And Vomiting Phenol 1 spray 11/25/24 10:37 11/25/24 12:52 Phenol/Sod Pheno [place] (*Bkc) MUCOUS MEM 1 spray PRN PRN Administration Sore Throat Saccharomyces Boulardii 250 mg 11/23/24 17:00 11/24/24 08:16 Saccharomyces Boulardii 250 Mg Capsule PO 250 mg BID LORETA Administration Sodium Chloride 20 ml 11/27/24 12:05 Central Line Flush IV PUSH PRN PRN after blood draws Sodium Chloride 10 ml 11/27/24 12:05 Central Line Flush IV PUSH PRN PRN with TPN bag changes Sodium Chloride 10 ml 11/27/24 14:00 11/29/24 05:13 Central Line Flush IV PUSH 10 ml Q8HR LORETA Administration Radiology Results: ITS Impressions Catheter Placement CT 11/23/24 14:32 IMPRESSION: 1. Successful CT-guided perisigmoid abscess drainage. 2. 5 mL of opaque, burks fluid was sent for aerobic and anaerobic cultures. Abdomen/Pelvis CT 11/23/24 19:27 IMPRESSION: 1. Sigmoid diverticulitis with previously seen abscesses in the area. Left drainage catheter is seen. Minimal fat stranding in the left paracolic gutter. Early peritonitis should be considered. Clinical correlation advised. 2. Minimal air in the abdomen with fluid around the liver. 3. Dilated small bowel loops suggestive of ileus. Follow-up advised. Abdomen X-Ray 11/27/24 05:46 Impression: NG tube in satisfactory position. Chest X-Ray 11/27/24 12:20 IMPRESSION: 1. PICC tip at the superior cavoatrial junction. 2. Worsened airspace opacities in the lower lung zones, likely atelectasis. Labs Labs: Laboratory Results - last 24 hr 11/28/24 11/28/24 11/28/24 12:35 18:58 20:40 WBC RBC Hgb Hct MCV MCH MCHC RDW Plt Count MPV Sodium Potassium Chloride Carbon Dioxide Anion Gap BUN Creatinine Estim Creat Clear Calc Estimated GFR Glucose POC Capillary Glucose 142 H 143 H 137 H Calcium Phosphorus C-Reactive Protein 11/28/24 11/29/24 11/29/24 23:37 04:55 05:11 WBC 24.2 H RBC 4.31 L Hgb 12.5 L Hct 37.6 L MCV 87.2 MCH 29.0 MCHC 33.2 RDW 14.5 Plt Count 297 MPV 10.3 Sodium 137 Potassium 3.9 Chloride 107 Carbon Dioxide 26 Anion Gap 4 BUN 10 Creatinine 0.70 Estim Creat Clear Calc 112 Estimated GFR > 60 Glucose 121 H POC Capillary Glucose 114 H 133 H Calcium 8.8 Phosphorus 3.5 C-Reactive Protein 8.8 H
[2024-11-29 12:09] LABS: Glucose Point of Care 149 mg/dl (65-105)
[2024-11-29 15:21] VITALS: BP 141/77; PULSE 74; RESP 14; TEMP 36.8; O2SAT 96
[2024-11-29 18:08] LABS: Glucose Point of Care 113 mg/dl (65-105)
[2024-11-29] MEDS: FAT EMULSIONS IV 20% 250 ML 20.83 ML IVPB (18:14)
--- NOTE | 2024-11-29 18:14 | P.CONS_ITS ---
HPI Data of Consult Date/Time: 11/29/24 18:14 Requesting Physician: Jerson Moran MD Primary Care Provider: UNKNOWN,DOCTOR Consult Narrative Narrative: Jamie Solomon is a 54 year old male status post laparotomy for ruptured viscus. He is recovering with no complication at this time. His blood counts are stable but lymphocytosis persists. Flow cytometry report is pending. [facility] Past Medical History Medical History (Updated 11/27/24 @ 16:24 by Jerson Moran MD) Chronic insomnia Erectile dysfunction Family History Family History Mother Depression Family history of multiple sclerosis Hypertension Family history of elevated blood lipids Family history of diabetes mellitus in first degree relative Grandparent Diabetes mellitus Family history of malignant neoplasm of brain, Onset Age: 69 Father Hypertension Social History Social History Smoking status: Never smoker Second hand tobacco smoke exposure: No Smoking end date: 11/25/09 Additional smoking assessment comments: uses Nicorette gum Alcohol intake: current Drinks per week: 8 Substance use: never Substance use type: marijuana Other substance usage details: THC gummies Do You Feel Safe in your Home?: Yes Lack of Transportation: No Lack of Food: Never True Current Housing: I Have Housing Concerned About Future Housing: No Difficulty Paying Gas/Electric Bills: No Difficulty Paying for Meds: No Currently Unemployed: No Education: Trade/Vocational Certificate Difficulty w/ Childcare or Family Care: No Living arrangements: with family 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/Education: 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 Gender identity (if verbalized by the patient): Male Spiritual care concerns: No Meds Home Medications and Allergies Home Medications ?Medication ?Instructions ?Recorded ?Confirmed ?Type Nicorette 1 gum PO DIRECTED 10/20/19 11/19/24 History sildenafil (pulm.hypertension) 20 20 mg PO DAILY PRN sexual activity 12/20/23 11/19/24 Rx mg tablet #30 tabs Allergies Allergy/AdvReac Type Severity Reaction Status Date / Time No Known Allergies Allergy Verified 11/24/24 14:05 Vital Signs Vital Signs - 24 hr 11/28/24 20:00 11/28/24 20:00 11/29/24 00:00 Temperature 36.6 C 36.4 C Pulse Rate 80 81 Respiratory Rate 14 12 Blood Pressure 134/85 149/88 H Pulse Oximetry 97 97 Oxygen Delivery Room Air 11/29/24 04:00 11/29/24 08:00 11/29/24 09:39 Temperature 36.3 C L Pulse Rate 87 91 Respiratory Rate 14 16 Blood Pressure 150/90 H 148/92 H Pulse Oximetry 96 97 Oxygen Delivery Room Air 11/29/24 12:00 11/29/24 15:21 Temperature 36.8 C Pulse Rate 88 74 Respiratory Rate 14 14 Blood Pressure 140/87 141/77 H Pulse Oximetry 97 96 Oxygen Delivery Results Labs 11/29/24 05:11 11/29/24 05:11 Labs: Short CBC 11/29/24 Range/Units 05:11 WBC 24.2 H (4.5-10.0) K/mm3 Hgb 12.5 L (14.0-18.0) g/dL Hct 37.6 L (42.0-52.0) % Plt Count 297 (150-375) k/mm3 BMP 11/29/24 05:11 Sodium 137 Potassium 3.9 Chloride 107 Carbon Dioxide 26 BUN 10 Creatinine 0.70 Glucose 121 H Calcium 8.8 Attestation Supervising Provider Attestation Assessment: The patient is recovering from laparotomy uneventfully. Lymphocytosis persists however Plan: Will review flow cytometry report We will also review serum protein electrophoresis report.
[2024-11-29 20:00] VITALS: BP 144/85; PULSE 84; RESP 18; TEMP 36.4; O2SAT 97
[2024-11-30] VITALS: BP 130/85; PULSE 90; RESP 16; TEMP 36.5; O2SAT 95
[2024-11-30 01:04] LABS: Glucose Point of Care 166 mg/dl (65-105)
[2024-11-30] MEDS: MORPHINE SULFATE (*CRX) 2 MG/ML INJ IV PUSH ×4 (01:28→12:01)
[2024-11-30 04:00] VITALS: BP 129/71; PULSE 92; RESP 16; TEMP 36.7; O2SAT 95
[2024-11-30] MEDS: CENTRAL LINE FLUSH 10 ML IV PUSH ×3 (06:00→22:23)
[2024-11-30] MEDS: AMINO ACIDS 5%/D15W/E-LYTES/CA 1,000 ML with MULTIVITAMINS-12 INJ VIAL 1 1.25 ML, MULTI... 40 ML IV CONT (06:40)
[2024-11-30 06:44] LABS: Hematocrit 39.3 % (42.0-52.0); Mean Corpuscular HGB Conc 33.1 g/dl (32-36); Mean Corpuscular Hemoglobin 29.1 pg (26-34); Mean Corpuscular Volume 87.9 fl (80-100); Mean Platelet Volume 10.5 fl (7.4-10.4); Platelet Count Result 324 k/mm3 (150-375); Red Blood Count 4.47 M/mm3 (4.6-6.20); Red Cell Distribution Width 14.8 % (11.5-14.5); White Blood Count 27.5 K/mm3 (4.5-10.0)
[2024-11-30 06:54] LABS: Alanine Aminotransferase 66 U/L (6-50); Alkaline Phosphatase 79 U/L (38-126); Anion Gap 0 mmol/L (4-12); Aspartate Amino Transferase 86 U/L (17-59); Bilirubin,Total 0.9 mg/dL (0.2-1.3); Blood Urea Nitrogen 18 mg/dL (9-20); Calcium 8.9 mg/dL (8.4-10.2); Carbon Dioxide 28 mmol/L (22-30); Chloride 109 mmol/L (98-107); Estimated CRCL calculation 99 ml/min; Estimated Glomerular Filt Rate > 60; Glucose 135 mg/dL (65-110); Magnesium 2.5 mg/dL (1.6-2.3); Phosphorus 3.5 mg/dL (2.5-4.5); Potassium 4.5 mmol/L (3.4-5.0); Sodium 137 mmol/L (137-145)
[2024-11-30 06:56] LABS: INR 1.1; Partial Thromboplastin Time 29.1 Seconds (22.3-36.8)
[2024-11-30 07:01] LABS: Transferrin 153 mg/dL (206-381)
[2024-11-30 07:09] LABS: Band Neutrophils Percent 3 % (0-6); Eosinophils Absolute Manual 0.55 K/mm3 (0.02-0.50); Eosinophils Percent Manual 2 % (0-4); Lymphocytes Absolute Manual 2.47 K/mm3 (1.1-4.5); Lymphocytes Percent Manual 9 % (18-44); Monocytes Absolute Manual 0.55 K/mm3 (0.1-0.90); Monocytes Percent Manual 2 % (3-9); Neutrophils Absolute Manual 12.92 K/mm3 (1.3-6.7); Neutrophils Percent Manual 44 % (46-73); Smudge Cells MANY; Total Cells Counted 100
[2024-11-30 07:10] LABS: Large Platelets Present; Platelet Estimate Adequate (Adequate); Schistocytes None Seen
[2024-11-30 07:53] LABS: Glucose Point of Care 146 mg/dl (65-105)
[2024-11-30] MEDS: ENOXAPARIN 40 MG/0.4 ML SYRINGE SUB-Q (09:21)
[2024-11-30] MEDS: FAMOTIDINE 20 MG/2 ML VIAL IV PUSH (09:21)
--- NOTE | 2024-11-30 10:29 | PM.PNGS ---
Progress Note: A&P Assessment and Plan (1) History of open sigmoidectomy: Code(s): Z98.890 - Other specified postprocedural states; Z90.49 - Acquired absence of other specified parts of digestive tract Status: Acute Assessment and Plan: Postop day 6. Patient had a BM this morning. He does have some bowel sounds. He pulled his NG tube out 2 days ago and it has stayed out with no nausea or emesis. He is not nauseated today, nor does he have heartburn. Wound is healing well. Will go ahead and start clear liquids. Continue TPN for now. CRP yesterday has dropped significantly from 2 days postop. Seems to be doing well. (2) Diverticulitis of intestine with perforation and abscess without bleeding: Qualifiers: Diverticulitis site: large intestine Qualified Code(s): K57.20 - Diverticulitis of large intestine with perforation and abscess without bleeding Code(s): K57.80 - Diverticulitis of intestine, part unspecified, with perforation and abscess without bleeding Status: Acute Assessment and Plan: Pathology shows both acute and chronic diverticulitis with abscess. 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 Starting liquids. (5) Lymphocytosis: Code(s): D72.820 - Lymphocytosis (symptomatic) Status: Chronic Assessment and Plan: Hand differential noted today. White blood cell count up to 27,000. Many smudge cells seen. Pending flow cytometry and serum protein electrophoresis to complete hematology eval. Subjective Subjective Date/Time Seen: 11/30/24 10:29 Post Op day: #6 Patient reports: no new complaints, pain is less, voiding w/o difficulty, bowel movement and afebrile Exam Const: General: comfortable and no acute distress Orientation/consciousness: patient oriented x3 GI: Inspection: no abdominal wall ecchymosis, non-distended, incision (Wound dry and intact, no redness, no bruising.), scaphoid and no visible herniation GI Palp: Yes Soft to palpation, Yes Tenderness to palpation present (GI) and No Guarding due to palpation present (GI) Auscultation: Hypoactive bowel sounds present Neuro: General: patient oriented x3 and no focal motor deficits Extrem: General: no calf tenderness and no edema Psych: Affect: normal affect Insight: Good insight present (Psych) Judgement: Good judgement present (Psych) Objective Data Vital Signs Vital Signs: Vital Signs - 24 hr 11/29/24 12:00 11/29/24 15:21 11/29/24 20:00 Temperature 36.8 C 36.4 C Pulse Rate 88 74 84 Respiratory Rate 14 14 18 Blood Pressure 140/87 141/77 H 144/85 H Pulse Oximetry 97 96 97 11/30/24 00:00 11/30/24 04:00 Temperature 36.5 C 36.7 C Pulse Rate 90 92 Respiratory Rate 16 16 Blood Pressure 130/85 129/71 Pulse Oximetry 95 95 Intake/Output Intake/Output: Intake & Output 11/27/24 11/28/24 11/29/24 11/30/24 23:59 23:59 23:59 23:59 Intake Total 1798 2769 1178.7 840 Output Total 2425 1100 0 500 Balance -627 1669 1178.7 340 Meds/Results Medications: Active Medications Generic Name Dose Route Start Last Admin Trade Name Freq PRN Reason Stop Dose Admin Acetaminophen 500 mg 11/30/24 10:25 Acetaminophen 500 Mg Tablet PO Q6H PRN Pain Rated 1-3 Dextrose 12.5 gm 11/27/24 16:16 Dextrose 50% 25 Gm/50 Ml Syringe IV PUSH PRN PRN Hypoglycemia Protocol Diazepam 5 mg 11/19/24 19:19 11/23/24 21:41 Diazepam (*Crx) 5 Mg Tablet PO 5 mg QHS PRN Administration Sleep Enoxaparin Sodium 40 mg 11/25/24 09:00 11/30/24 09:21 Enoxaparin 40 Mg/0.4 Ml Syringe SUB-Q 40 mg DAILY LORETA Administration Fentanyl Citrate 12.5 mcg 11/27/24 16:25 Fentanyl Citrate Inj (*Crx) 100 Mcg/2 Ml Vial IV PUSH Q2H PRN Breakthrough Pain Rated 4-6 or NPO Glucagon 1 mg 11/27/24 16:16 Glucagon For Inj 1 Mg Vial IM PRN PRN Hypoglycemia Protocol Glucose 15 gm 11/27/24 16:16 Glucose Oral Gel 15 Gm Of Glucse In 37.5 Gm Tube PO PRN PRN Hypoglycemia Protocol Dextrose 1,000 mls @ 50 mls/hr 11/27/24 16:12 Dextrose 10% IV CONT .Q20H PRN if PN is interrupted Multivitamins 1.25 ml/ 1,002.5 mls @ 70 mls/hr 11/27/24 16:20 11/30/24 06:40 Multivitamins 1.25 ml/ Amino IV CONT 40 mls/hr Acids/Electrolytes/Dextrose .[id number] LORETA Administration Protocol Fat Emulsion Intravenous 250 mls @ 20.833 mls/hr 11/27/24 16:20 11/29/24 18:14 Lipids 20% IVPB 20.83 mls/hr Q24H LORETA Administration Dextrose 1,000 mls @ 100 mls/hr 11/27/24 16:16 Dextrose 5% 1,000 Ml IVPB PRN PRN Hypoglycemia Protocol Piperacillin/Tazobactam/Dextrose 3.375 gm in 50 mls @ 100 mls/hr 11/30/24 10:25 Zosyn 3.375 Gm/Ns 50 Ml IVPB Q6H [facility] Insulin Aspart 3 - 6 units 11/27/24 18:00 11/30/24 06:00 Insulin Aspart (*Bkc) 100 Units/Ml SUB-Q Not Given Q6HR [facility] Protocol Lorazepam 1 mg 11/24/24 21:07 11/28/24 20:49 Lorazepam Inj (*Crx) 2 Mg/Ml Vial IV PUSH 1 mg Q6H PRN Administration Anxiety Miscellaneous Information 0 each 11/29/24 00:01 11/29/24 00:21 Zosyn Renew If Still Needs Or Will Auto D/C XX 12/29/24 00:00 Not Given CLARIFY [facility] Morphine Sulfate 2 mg 11/27/24 16:25 11/30/24 09:24 Morphine Sulfate (*Crx) 2 Mg/Ml Inj IV PUSH 2 mg Q2H PRN Administration Breakthrough Pain Rated 4-6 or NPO Morphine Sulfate 4 mg 11/27/24 16:25 11/29/24 00:37 Morphine Sulfate (*Crx) 4 Mg/Ml Inj IV PUSH 4 mg Q2H PRN Administration Breakthrough Pain Rated 7-10 or NPO Naloxone HCl 0.1 mg 11/25/24 10:34 Naloxone Hcl 0.4 Mg/Ml Vial IV PUSH Q5MIN PRN Opiate Reversal Naloxone HCl 0.1 mg 11/27/24 16:25 Naloxone Hcl 0.4 Mg/Ml Vial IV PUSH Q2M PRN Opiate Reversal Ondansetron HCl 4 mg 11/24/24 21:07 11/27/24 20:34 Ondansetron Inj 4 Mg/2 Ml Vial IV PUSH 4 mg Q4H PRN Administration Nausea And Vomiting Oxycodone/Acetaminophen 1 tablet 11/30/24 10:25 Oxycodone/Acetaminophen (*Crx) 5-325 Mg Tablet PO Q4H PRN Pain Rated 4-6 Phenol 1 spray 11/25/24 10:37 11/25/24 12:52 Phenol/Sod Pheno [place] (*Bkc) MUCOUS MEM 1 spray PRN PRN Administration Sore Throat Saccharomyces Boulardii 250 mg 11/23/24 17:00 11/24/24 08:16 Saccharomyces Boulardii 250 Mg Capsule PO 250 mg BID LORETA Administration Sodium Chloride 20 ml 11/27/24 12:05 Central Line Flush IV PUSH PRN PRN after blood draws Sodium Chloride 10 ml 11/27/24 12:05 Central Line Flush IV PUSH PRN PRN with TPN bag changes Sodium Chloride 10 ml 11/27/24 14:00 11/30/24 06:00 Central Line Flush IV PUSH 10 ml Q8HR LORETA Administration Radiology Results: ITS Impressions Catheter Placement CT 11/23/24 14:32 IMPRESSION: 1. Successful CT-guided perisigmoid abscess drainage. 2. 5 mL of opaque, burks fluid was sent for aerobic and anaerobic cultures. Abdomen/Pelvis CT 11/23/24 19:27 IMPRESSION: 1. Sigmoid diverticulitis with previously seen abscesses in the area. Left drainage catheter is seen. Minimal fat stranding in the left paracolic gutter. Early peritonitis should be considered. Clinical correlation advised. 2. Minimal air in the abdomen with fluid around the liver. 3. Dilated small bowel loops suggestive of ileus. Follow-up advised. Abdomen X-Ray 11/27/24 05:46 Impression: NG tube in satisfactory position. Chest X-Ray 11/27/24 12:20 IMPRESSION: 1. PICC tip at the superior cavoatrial junction. 2. Worsened airspace opacities in the lower lung zones, likely atelectasis. Labs Labs: Laboratory Results - last 24 hr 11/29/24 11/29/24 11/29/24 11:50 18:03 23:49 WBC RBC Hgb Hct MCV MCH MCHC RDW Plt Count MPV Immature Gran % (Auto) Neut % (Auto) Lymph % (Auto) [place] % (Auto) Eos % (Auto) Baso % (Auto) Lymph # (Auto) [place] # (Auto) Eos # (Auto) Baso # (Auto) Abs Immat Gran (auto) Absolute Neuts (auto) Absolute Nucleated RBC Total Counted Neutrophils % (Manual) Band Neutrophils % Lymphocytes % (Manual) Monocytes % (Manual) Eosinophils % (Manual) Nucleated RBC % Abs Neuts (Manual) Abs Lymphs (Manual) Abs Monocytes (Manual) Absolute Eos (Manual) Smudge Cells Platelet Estimate Large Platelets Schistocytes PT INR APTT Sodium Potassium Chloride Carbon Dioxide Anion Gap BUN Creatinine Estim Creat Clear Calc Estimated GFR Glucose POC Capillary Glucose 149 H 113 H 166 H Calcium Phosphorus Magnesium Transferrin Total Bilirubin AST ALT Alkaline Phosphatase Total Protein Albumin 11/30/24 11/30/24 06:33 07:41 WBC 27.5 H RBC 4.47 L Hgb 13.0 L Hct 39.3 L MCV 87.9 MCH 29.1 MCHC 33.1 RDW 14.8 H Plt Count 324 MPV 10.5 H Immature Gran % (Auto) Not Reportable Neut % (Auto) Not Reportable Lymph % (Auto) Not Reportable [place] % (Auto) Not Reportable Eos % (Auto) Not Reportable Baso % (Auto) Not Reportable Lymph # (Auto) Not Reportable [place] # (Auto) Not Reportable Eos # (Auto) Not Reportable Baso # (Auto) Not Reportable Abs Immat Gran (auto) Not Reportable Absolute Neuts (auto) Not Reportable Absolute Nucleated RBC Not Reportable Total Counted 100 Neutrophils % (Manual) 44 L Band Neutrophils % 3 Lymphocytes % (Manual) 9 L Monocytes % (Manual) 2 L Eosinophils % (Manual) 2 Nucleated RBC % Not Reportable Abs Neuts (Manual) 12.92 H Abs Lymphs (Manual) 2.47 Abs Monocytes (Manual) 0.55 Absolute Eos (Manual) 0.55 H Smudge Cells Many Platelet Estimate Adequate Large Platelets Present Schistocytes None seen PT 14.0 INR 1.1 APTT 29.1 Sodium 137 Potassium 4.5 Chloride 109 H Carbon Dioxide 28 Anion Gap 0 L BUN 18 Creatinine 0.80 Estim Creat Clear Calc 99 Estimated GFR > 60 Glucose 135 H POC Capillary Glucose 146 H Calcium 8.9 Phosphorus 3.5 Magnesium 2.5 H Transferrin 153 L Total Bilirubin 0.9 AST 86 H ALT 66 H Alkaline Phosphatase 79 Total Protein 6.0 L Albumin 3.0 L
[2024-11-30 10:46] LABS: Triglycerides 183 mg/dL (<150)
[2024-11-30] MEDS: PIPERACILLN/TAZ 3.375GM/NS50ML 3.375 GM/50 ML BAG IVPB ×2 (11:54→17:32)
[2024-11-30 11:57] LABS: Glucose Point of Care 157 mg/dl (65-105)
[2024-11-30 13:05] LABS: Glucose Point of Care 146 mg/dl (65-105)
[2024-11-30 14:00] VITALS: BP 132/84; PULSE 88; RESP 20; TEMP 36.8; O2SAT 97
[2024-11-30] MEDS: oxyCODONE/ACETAMINOPHEN (*CRX) 5-325 MG TABLET 1 TABLET PO ×2 (15:21→20:10)
[2024-11-30] MEDS: FAT EMULSIONS IV 20% 250 ML 20.83 ML IVPB (17:50)
[2024-11-30 18:03] LABS: Glucose Point of Care 135 mg/dl (65-105)
[2024-11-30] MEDS: FAMOTIDINE 20 MG TABLET PO (20:14)
[2024-11-30 22:00] VITALS: BP 126/80; PULSE 82; RESP 16; TEMP 36.3; O2SAT 97
[2024-11-30] MEDS: AMINO ACIDS 5%/D15W/E-LYTES/CA 1,000 ML with MULTIVITAMINS-12 INJ VIAL 1 1.25 ML, MULTI... 70 ML IV CONT (22:20)
[2024-12-01] MEDS: PIPERACILLN/TAZ 3.375GM/NS50ML 3.375 GM/50 ML BAG IVPB ×4 (00:24→17:31)
[2024-12-01 00:35] LABS: Glucose Point of Care 126 mg/dl (65-105)
[2024-12-01] MEDS: oxyCODONE/ACETAMINOPHEN (*CRX) 5-325 MG TABLET 1 TABLET PO ×5 (00:58→22:10)
[2024-12-01 05:26] LABS: Glucose Point of Care 144 mg/dl (65-105)
[2024-12-01 05:37] VITALS: BP 134/95; PULSE 89; RESP 20; TEMP 36.2; O2SAT 97
[2024-12-01] MEDS: CENTRAL LINE FLUSH 10 ML IV PUSH ×3 (06:17→21:13)
[2024-12-01 06:34] LABS: Hematocrit 38.3 % (42.0-52.0); Hemoglobin 12.4 g/dL (14.0-18.0); Mean Corpuscular HGB Conc 32.4 g/dl (32-36); Mean Corpuscular Hemoglobin 28.8 pg (26-34); Mean Corpuscular Volume 89.1 fl (80-100); Mean Platelet Volume 10.7 fl (7.4-10.4); Platelet Count Result 294 k/mm3 (150-375); Red Cell Distribution Width 14.8 % (11.5-14.5); White Blood Count 25.3 K/mm3 (4.5-10.0)
[2024-12-01 06:51] LABS: Anion Gap 5 mmol/L (4-12); Blood Urea Nitrogen 18 mg/dL (9-20); Calcium 8.3 mg/dL (8.4-10.2); Carbon Dioxide 26 mmol/L (22-30); Chloride 104 mmol/L (98-107); Estimated CRCL calculation 115 ml/min; Estimated Glomerular Filt Rate > 60; Glucose 112 mg/dL (65-110); Phosphorus 3.4 mg/dL (2.5-4.5); Potassium 4.4 mmol/L (3.4-5.0); Sodium 135 mmol/L (137-145)
[2024-12-01 06:52] LABS: CRP 4.6 mg/dL (<1.0)
[2024-12-01 07:54] LABS: Band Neutrophils Percent 1 % (0-6); Lymphocytes Absolute Manual 11.63 K/mm3 (1.1-4.5); Lymphocytes Percent Manual 46 % (18-44); Neutrophils Absolute Manual 12.65 K/mm3 (1.3-6.7); Neutrophils Percent Manual 49 % (46-73); Total Cells Counted 100
[2024-12-01 07:55] LABS: Anisocytosis 1+; Ovalocytes 1+; Platelet Estimate Adequate (Adequate); Promyelocytes Percent 4 %; Schistocytes None Seen; Smudge Cells PRESENT
[2024-12-01] MEDS: FAMOTIDINE 20 MG TABLET PO ×2 (09:51→21:13)
[2024-12-01] MEDS: ENOXAPARIN 40 MG/0.4 ML SYRINGE SUB-Q (09:51)
--- NOTE | 2024-12-01 11:28 | P.PNGS_ITS ---
Progress Note: A&P Assessment and Plan (1) History of open sigmoidectomy: Code(s): Z98.890 - Other specified postprocedural states; Z90.49 - Acquired absence of other specified parts of digestive tract Status: Acute Assessment and Plan: patient doing well. Will discontinue TPN and lipids. Advanced to soft diet. Leave incision open and probably remove luis e tomorrow. Continue Zosyn until tomorrow morning. Making good progress. Possibly home in 24-48 hours. CRP continues to decrease (2) Diverticulitis of intestine with perforation and abscess without bleeding: Qualifiers: Diverticulitis site: large intestine Qualified Code(s): K57.20 - Diverticulitis of large intestine with perforation and abscess without bleeding Code(s): K57.80 - Diverticulitis of intestine, part unspecified, with perforation and abscess without bleeding Status: Acute Assessment and Plan: Pathology shows both acute and chronic diverticulitis with abscess. 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 Will stop TPN and lipids today. Advanced to low-fiber or soft diet. (5) Lymphocytosis: Code(s): D72.820 - Lymphocytosis (symptomatic) Status: Chronic Assessment and Plan: Persists with smudge cells. Flow cytometry and protein electrophoresis pending. Hematology consultation appreciated. Patient will likely need outpatient follow-up. Subjective Subjective Date/Time Seen: 12/01/24 11:28 Post Op day: #7 Patient reports: no new complaints, tolerating liquids well, voiding w/o difficulty, bowel movement and afebrile Exam Const: General: comfortable and no acute distress Orientation/consciousness: patient oriented x3 GI: Inspection: non-distended, incision ( Dry and healing well) and scaphoid GI Palp: Yes Soft to palpation and Yes Tenderness to palpation present (GI) Auscultation: normal bowel sounds Neuro: General: patient oriented x3 and no focal motor deficits Extrem: General: no calf tenderness and no edema Psych: Affect: normal affect Insight: Good insight present (Psych) Judgement: Good judgement present (Psych) Objective Data Vital Signs Vital Signs: Vital Signs - 24 hr 11/30/24 14:00 11/30/24 22:00 12/01/24 05:37 Temperature 36.8 C 36.3 C L 36.2 C L Pulse Rate 88 82 89 Respiratory Rate 20 16 20 Blood Pressure 132/84 126/80 134/95 H Pulse Oximetry 97 97 97 Intake/Output Intake/Output: Intake & Output 11/28/24 11/29/24 11/30/24 12/01/24 23:59 23:59 23:59 23:59 Intake Total 2769 1178.7 2432.5 100 Output Total 1100 0 500 700 Balance 1669 1178.7 1932.5 -600 Meds/Results Medications: Active Medications Generic Name Dose Route Start Last Admin Trade Name Freq PRN Reason Stop Dose Admin Acetaminophen 500 mg 11/30/24 10:25 Acetaminophen 500 Mg Tablet PO Q6H PRN Pain Rated 1-3 Diazepam 5 mg 11/19/24 19:19 11/23/24 21:41 Diazepam (*Crx) 5 Mg Tablet PO 5 mg QHS PRN Administration Sleep Enoxaparin Sodium 40 mg 11/25/24 09:00 12/01/24 09:51 Enoxaparin 40 Mg/0.4 Ml Syringe SUB-Q 40 mg DAILY LORETA Administration Famotidine 20 mg 11/30/24 21:00 12/01/24 09:51 Famotidine 20 Mg Tablet PO 20 mg Q12HR LORETA Administration Fentanyl Citrate 12.5 mcg 11/27/24 16:25 Fentanyl Citrate Inj (*Crx) 100 Mcg/2 Ml Vial IV PUSH Q2H PRN Breakthrough Pain Rated 4-6 or NPO Piperacillin/Tazobactam/Dextrose 3.375 gm in 50 mls @ 100 mls/hr 11/30/24 11:00 12/01/24 11:14 Zosyn 3.375 Gm/Ns 50 Ml IVPB 12/02/24 08:00 100 mls/hr Q6HR LORETA Administration Lorazepam 1 mg 11/24/24 21:07 11/28/24 20:49 Lorazepam Inj (*Crx) 2 Mg/Ml Vial IV PUSH 1 mg Q6H PRN Administration Anxiety Morphine Sulfate 2 mg 12/01/24 11:26 Morphine Sulfate (*Crx) 2 Mg/Ml Inj IV PUSH Q2H PRN Breakthrough Pain Rated 7-10 or NPO Morphine Sulfate 1 mg 12/01/24 11:26 Morphine Sulfate (*Crx) 2 Mg/Ml Inj IV PUSH Q2H PRN Breakthrough Pain Rated 4-6 or NPO Naloxone HCl 0.1 mg 11/27/24 16:25 Naloxone Hcl 0.4 Mg/Ml Vial IV PUSH Q2M PRN Opiate Reversal Ondansetron HCl 4 mg 11/24/24 21:07 11/27/24 20:34 Ondansetron Inj 4 Mg/2 Ml Vial IV PUSH 4 mg Q4H PRN Administration Nausea And Vomiting Oxycodone/Acetaminophen 1 tablet 11/30/24 10:25 12/01/24 11:13 Oxycodone/Acetaminophen (*Crx) 5-325 Mg Tablet PO 1 tablet Q4H PRN Administration Pain Rated 4-6 Phenol 1 spray 11/25/24 10:37 11/25/24 12:52 Phenol/Sod Pheno [place] Kessler (*Bkc) MUCOUS MEM 1 spray PRN PRN Administration Sore Throat Saccharomyces Boulardii 250 mg 11/23/24 17:00 11/24/24 08:16 Saccharomyces Boulardii 250 Mg Capsule PO 250 mg BID LORETA Administration Sodium Chloride 20 ml 11/27/24 12:05 Central Line Flush IV PUSH PRN PRN after blood draws Sodium Chloride 10 ml 11/27/24 12:05 Central Line Flush IV PUSH PRN PRN with TPN bag changes Sodium Chloride 10 ml 11/27/24 14:00 12/01/24 06:17 Central Line Flush IV PUSH 10 ml Q8HR LORETA Administration Radiology Results: ITS Impressions Catheter Placement CT 11/23/24 14:32 IMPRESSION: 1. Successful CT-guided perisigmoid abscess drainage. 2. 5 mL of opaque, burks fluid was sent for aerobic and anaerobic cultures. Abdomen/Pelvis CT 11/23/24 19:27 IMPRESSION: 1. Sigmoid diverticulitis with previously seen abscesses in the area. Left drainage catheter is seen. Minimal fat stranding in the left paracolic gutter. Early peritonitis should be considered. Clinical correlation advised. 2. Minimal air in the abdomen with fluid around the liver. 3. Dilated small bowel loops suggestive of ileus. Follow-up advised. Abdomen X-Ray 11/27/24 05:46 Impression: NG tube in satisfactory position. Chest X-Ray 11/27/24 12:20 IMPRESSION: 1. PICC tip at the superior cavoatrial junction. 2. Worsened airspace opacities in the lower lung zones, likely atelectasis. Labs Labs: Laboratory Results - last 24 hr 11/30/24 11/30/24 11/30/24 06:17 11:31 18:00 WBC RBC Hgb Hct MCV MCH MCHC RDW Plt Count MPV Immature Gran % (Auto) Neut % (Auto) Lymph % (Auto) [place] % (Auto) Eos % (Auto) Baso % (Auto) Lymph # (Auto) [place] # (Auto) Eos # (Auto) Baso # (Auto) Abs Immat Gran (auto) Absolute Neuts (auto) Absolute Nucleated RBC Total Counted Neutrophils % (Manual) Band Neutrophils % Lymphocytes % (Manual) Promyelocytes % (Man) Nucleated RBC % Abs Neuts (Manual) Abs Lymphs (Manual) Smudge Cells Platelet Estimate Anisocytosis Ovalocytes Schistocytes Sodium Potassium Chloride Carbon Dioxide Anion Gap BUN Creatinine Estim Creat Clear Calc Estimated GFR Glucose POC Capillary Glucose 146 H 157 H 135 H Calcium Phosphorus C-Reactive Protein 12/01/24 12/01/24 12/01/24 00:32 05:22 06:25 WBC 25.3 H RBC 4.30 L Hgb 12.4 L Hct 38.3 L MCV 89.1 MCH 28.8 MCHC 32.4 RDW 14.8 H Plt Count 294 MPV 10.7 H Immature Gran % (Auto) Not Reportable Neut % (Auto) Not Reportable Lymph % (Auto) Not Reportable [place] % (Auto) Not Reportable Eos % (Auto) Not Reportable Baso % (Auto) Not Reportable Lymph # (Auto) Not Reportable [place] # (Auto) Not Reportable Eos # (Auto) Not Reportable Baso # (Auto) Not Reportable Abs Immat Gran (auto) Not Reportable Absolute Neuts (auto) Not Reportable Absolute Nucleated RBC Not Reportable Total Counted 100 Neutrophils % (Manual) 49 Band Neutrophils % 1 Lymphocytes % (Manual) 46 H Promyelocytes % (Man) 4 Nucleated RBC % Not Reportable Abs Neuts (Manual) 12.65 H Abs Lymphs (Manual) 11.63 H Smudge Cells Present Platelet Estimate Adequate Anisocytosis 1+ Ovalocytes 1+ Schistocytes None seen Sodium 135 L Potassium 4.4 Chloride 104 Carbon Dioxide 26 Anion Gap 5 BUN 18 Creatinine 0.68 L Estim Creat Clear Calc 115 Estimated GFR > 60 Glucose 112 H POC Capillary Glucose 126 H 144 H Calcium 8.3 L Phosphorus 3.4 C-Reactive Protein 4.6 H
[2024-12-01 11:57] LABS: Glucose Point of Care 109 mg/dl (65-105)
--- NOTE | 2024-12-01 13:36 | PCNFU ---
Nutrition Follow-Up Complete: Inadequate energy intake related to NPO status as evidenced by diet order Goal:Meet estimated needs Pt progressing towards goal via PO Pt current nutrition is Clear liquids to advance to soft today Nutrition recommendation: Advance diet as tolerated Last recorded weight is 91.4 kg. Bowel Motility: +BM 1/ Labs Reviewed: Hgb:12.4, HCT:38.3, NA:135, Cr:0.6, Glu:112 Meds Noted: insulin Skin: WNL Additional Notes: Pt on clear liquids with TPN at 70ml/hr. Pt tolerating liquids, diet to advance to soft today. Agree with orders. D/C TPN when diet is advanced. Monitor diet orders, intake, wt, labs. Follow up in 3 days.
[2024-12-01 14:00] VITALS: BP 126/80; PULSE 82; RESP 18; TEMP 35.7; O2SAT 97
--- NOTE | 2024-12-01 14:12 | WPDCN ---
HPI Data of Consult Date/Time: 12/01/24 14:12 Requesting Physician: Jerson Moran MD Primary Care Provider: UNKNOWN,DOCTOR Consult Narrative Narrative: Jamie Solomon is a 54 year old male Review of Systems Review of Systems: Patient is status post laparotomy. He is afebrile. Bowel sounds are present and relatively normal. CBC shows leukocytosis with elevated neutrophils and and lymphocytes Platelet counts are normal now at 294K [facility] Past Medical History Medical History (Updated 11/27/24 @ 16:24 by Jerson Moran MD) Chronic insomnia Erectile dysfunction Family History Family History Mother Depression Family history of multiple sclerosis Hypertension Family history of elevated blood lipids Family history of diabetes mellitus in first degree relative Grandparent Diabetes mellitus Family history of malignant neoplasm of brain, Onset Age: 69 Father Hypertension Social History Social History Smoking status: Never smoker Second hand tobacco smoke exposure: No Smoking end date: 11/25/09 Additional smoking assessment comments: uses Nicorette gum Alcohol intake: current Drinks per week: 8 Substance use: never Substance use type: marijuana Other substance usage details: THC gummies Do You Feel Safe in your Home?: Yes Lack of Transportation: No Lack of Food: Never True Current Housing: I Have Housing Concerned About Future Housing: No Difficulty Paying Gas/Electric Bills: No Difficulty Paying for Meds: No Currently Unemployed: No Education: Trade/Vocational Certificate Difficulty w/ Childcare or Family Care: No Living arrangements: with family Occupation/Education: occupation 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[employer] Gender identity (if verbalized by the patient): Male Spiritual care concerns: No Meds Home Medications and Allergies Home Medications ?Medication ?Instructions ?Recorded ?Confirmed ?Type Nicorette 1 gum PO DIRECTED 10/20/19 11/19/24 History sildenafil (pulm.hypertension) 20 20 mg PO DAILY PRN sexual activity 12/20/23 11/19/24 Rx mg tablet #30 tabs Allergies Allergy/AdvReac Type Severity Reaction Status Date / Time No Known Allergies Allergy Verified 11/24/24 14:05 Vital Signs Vital Signs - 24 hr 11/30/24 22:00 12/01/24 05:37 Temperature 36.3 C L 36.2 C L Pulse Rate 82 89 Respiratory Rate 16 20 Blood Pressure 126/80 134/95 H Pulse Oximetry 97 97 Results Labs 12/01/24 06:25 12/01/24 06:25 Labs: Short CBC 12/01/24 Range/Units 06:25 WBC 25.3 H (4.5-10.0) K/mm3 Hgb 12.4 L (14.0-18.0) g/dL Hct 38.3 L (42.0-52.0) % Plt Count 294 (150-375) k/mm3 BMP 12/01/24 06:25 Sodium 135 L Potassium 4.4 Chloride 104 Carbon Dioxide 26 BUN 18 Creatinine 0.68 L Glucose 112 H Calcium 8.3 L Attestation Supervising Provider Attestation Assessment 1. Thrombocytopenia has resolved. 2. Lymphocytosis persists 3. Neutrophilia persists Plan: Continue to monitor CBC Review of flow cytometry Review of serum protein electrophoresis.
[2024-12-01 23:41] VITALS: BP 126/81; PULSE 84; RESP 16; TEMP 36.4; O2SAT 98
[2024-12-02] MEDS: PIPERACILLN/TAZ 3.375GM/NS50ML 3.375 GM/50 ML BAG IVPB ×2 (00:18→05:14)
[2024-12-02] MEDS: CENTRAL LINE FLUSH 10 ML IV PUSH (05:14)
[2024-12-02 05:27] LABS: Hematocrit 38.7 % (42.0-52.0); Hemoglobin 12.8 g/dL (14.0-18.0); Mean Corpuscular HGB Conc 33.1 g/dl (32-36); Mean Corpuscular Hemoglobin 29.2 pg (26-34); Mean Corpuscular Volume 88.4 fl (80-100); Mean Platelet Volume 10.8 fl (7.4-10.4); Platelet Count Result 281 k/mm3 (150-375); Red Blood Count 4.38 M/mm3 (4.6-6.20); Red Cell Distribution Width 14.7 % (11.5-14.5); White Blood Count 25.3 K/mm3 (4.5-10.0)
[2024-12-02 05:52] LABS: Eosinophils Absolute Manual 0.25 K/mm3 (0.02-0.50); Eosinophils Percent Manual 1 % (0-4); Lymphocytes Absolute Manual 15.68 K/mm3 (1.1-4.5); Lymphocytes Percent Manual 62 % (18-44); Monocytes Percent Manual 2 % (3-9); Total Cells Counted 100
[2024-12-02 05:53] LABS: Band Neutrophils Percent 4 % (0-6); Large Platelets Present; Neutrophils Absolute Manual 8.85 K/mm3 (1.3-6.7); Neutrophils Percent Manual 31 % (46-73); Ovalocytes 1+; Platelet Estimate Adequate (Adequate); Schistocytes None Seen; Smudge Cells PRESENT
[2024-12-02 06:22] VITALS: BP 127/74; PULSE 79; RESP 18; TEMP 36.4; O2SAT 96
[2024-12-02] MEDS: FAMOTIDINE 20 MG TABLET PO (08:39)
[2024-12-02] MEDS: ENOXAPARIN 40 MG/0.4 ML SYRINGE SUB-Q (08:39)
[2024-12-02] MEDS: oxyCODONE/ACETAMINOPHEN (*CRX) 5-325 MG TABLET 1 TABLET PO (12:56)
[2024-12-02 13:51] VITALS: BP 110/65; PULSE 89; RESP 20; TEMP 35.8; O2SAT 97
--- NOTE | 2024-12-02 14:11 | P.DS_ITS ---
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 He had a colonoscopy about 8 months ago which showed mild diverticulosis of the sigmoid colon and a pedunculated tubular adenoma that was removed in the sigmoid colon. He presented to the ED on 11/19/24 fo evaluation of abdominal pain x 3 days. Workup in the ED showed leukocytosis with a white blood cell count of 27,700. He had a CT scan of the abdomen and pelvis which showed probable acute diverticulitis with a 4.8 cm loculated pocket of air in the sigmoid mesentery. There were some other smaller loculations of air in the mesentery as well. He was admitted for treatment of perforated diverticulitis. Hospital Course: He was initially treated with conservative treatment with IV antibiotics, bowel rest, analgesics, and IV fluids. On his labs, he was found to have marked lymphocytosis on the differential, which was also noted on CBC 6 years prior. He also had atypical lymphs and smudge cells noted, therefore Hematology was consulted. They monitored his labs and ordered flow cytometry. The patient had recurrent severe abdominal pain after a bowel movement, and there was noted to be fullness on exam suggestive of inflammatory mass in the suprapubic area. Repeat CT scan of the abdomen and pelvis was subsequently ordered, and showed a 5.1 cm abscess in the mesentery. CT-guided percutaneous drainage of the abscess was ordered in Radiology, which was done on 11/23/2024. Quickly after the drain was placed, the patient had another recurrent episode of acute abdominal pain that was severe. He additionally became febrile overnight. Once the drain was in place, he was found to have feculent-appearing drainage coming from the percutaneous drain and continued to have persistent abdominal pain with signs of peritonitis on exam. He essentially failed conservative management and had a controlled colocutaneous fistula. Discussions were made and the patient was taken to surgery on 11/24/24. He underwent sigmoidectomy with colorectal anastomosis, takedown splenic flexure by Dr. Moran. His percutaneous drain was removed in surgery. Initially postoperatively, he required a HARDWOOD FLOOR REFINISHER for pain m anagement and was treated with NG tube decompression and bowel rest. He had a PICC line placed and was started on TPN postoperatively for malnutrition due to his extended limited diet. Postop day 6, bowel function had returned. His NG tube was accidentally removed prior to his bowel function returning. He was then started on clear liquids and his diet has slowly been advanced as tolerated. He was transitioned to oral pain medication, which is currently controlling his postoperative pain. Pathology showed both acute and chronic diverticulitis with abscess. Serial labs monitored postoperatively which showed resolution of the thrombocytopenia, but leukocytosis and lymphocytosis persisted. He has been afebrile and clinically improving. IV antibiotics were stopped yesterday. He is tolerating a diet and bowels are moving. His incision is healing well. Upson were removed prior to discharge. He is tolerating activity and voiding without any difficulty. Hematology workup pending and will plan for follow-up in 2 weeks as an outpatient. The patient is stable for discharge as of today. Status at Discharge Functional status at discharge: independent ambulation Overall status at discharge: patient is progressing back to baseline Time Spent with Patient Time attestation: Total time spent providing and/or coordinating discharge services: Time spent: Less than 30 minutes Exam Const: General: comfortable and no acute distress Orientation/consciousness: patient oriented x3 Resp: Effort & Inspection: normal respiratory effort Auscultation: clear to auscultation bilaterally Cardio: Rate: regular rate Rhythm: regular rhythm GI: Inspection: non-distended and incision (dry and luis e intact, no erythema or drainage) GI Palp: Yes Soft to palpation, Yes Tenderness to palpation present (GI) (mild tenderness near incision) and No Guarding due to palpation present (GI) Auscultation: normal bowel sounds Neuro: General: moves all extremities and no focal motor deficits Extrem: General: no calf tenderness and no edema Psych: Mental Status: mental status grossly normal Insight: Good insight present (Psych) DS: Data Data Completed and Pending Completed studies during hospitalization: Sigmoid colon, sigmoidectomy: - Acute and chronic diverticulitis with rupture and abscess formation - Fibrovascular adhesions - Negative for malignancy - The surgical margin show viable tissue. Labs on day of discharge: Labs from last 24 hours 12/02/24 05:21 WBC 25.3 H RBC 4.38 L Hgb 12.8 L Hct 38.7 L MCV 88.4 MCH 29.2 MCHC 33.1 RDW 14.7 H Plt Count 281 MPV 10.8 H Immature Gran % (Auto) Not Reportable Neut % (Auto) Not Reportable Lymph % (Auto) Not Reportable Frontier % (Auto) Not Reportable Eos % (Auto) Not Reportable Baso % (Auto) Not Reportable Lymph # (Auto) Not Reportable Frontier # (Auto) Not Reportable Eos # (Auto) Not Reportable Baso # (Auto) Not Reportable Abs Immat Gran (auto) Not Reportable Absolute Neuts (auto) Not Reportable Absolute Nucleated RBC Not Reportable Total Counted 100 Neutrophils % (Manual) 31 L Band Neutrophils % 4 Lymphocytes % (Manual) 62 H Monocytes % (Manual) 2 L Eosinophils % (Manual) 1 Nucleated RBC % Not Reportable Abs Neuts (Manual) 8.85 H Abs Lymphs (Manual) 15.68 H Abs Monocytes (Manual) 0.50 Absolute Eos (Manual) 0.25 Smudge Cells Present Platelet Estimate Adequate Large Platelets Present Ovalocytes 1+ Schistocytes None seen Procedures/Treatments: Procedures Operation Date: 11/23/24 13:15 <No data on this case meets the specified criteria> Operation Date: 11/23/24 13:15 Actual Procedure Side Surgeon p Radiology Procedure Mod.Sed.Rn / CT Abscess Drain Placement Left Vincent Heard MD Operation Date: 11/24/24 15:00 Actual Procedure Side Surgeon p Sigmoidectomy with takedown of splenic flexure Not Applicable Jerson Moran MD Imaging Radiologist's impression: ITS Impressions Abdomen/Pelvis CT 11/19/24 16:54 IMPRESSION: 1. Likely perforated sigmoid diverticulitis with loculated free intraluminal gas within the sigmoid and distal descending colon mesentery. No abscess. Abdomen/Pelvis CT 11/22/24 06:55 IMPRESSION: 1. Perforated sigmoid diverticulitis gas and fluid within a 5.1 x 2.6 cm increasingly organized-appearing abscess within the immediately adjacent sigmoid mesentery. Catheter Placement CT 11/23/24 14:32 IMPRESSION: 1. Successful CT-guided perisigmoid abscess drainage. 2. 5 mL of opaque, burks fluid was sent for aerobic and anaerobic cultures. Abdomen/Pelvis CT 11/23/24 19:27 IMPRESSION: 1. Sigmoid diverticulitis with previously seen abscesses in the area. Left drainage catheter is seen. Minimal fat stranding in the left paracolic gutter. Early peritonitis should be considered. Clinical correlation advised. 2. Minimal air in the abdomen with fluid around the liver. 3. Dilated small bowel loops suggestive of ileus. Follow-up advised. Chest X-Ray 11/24/24 13:20 Impression: Linear scarring left lung base, otherwise clear lungs. Abdomen X-Ray 11/26/24 05:23 Impression: NG tube in satisfactory position. Abdomen X-Ray 11/27/24 05:46 Impression: NG tube in satisfactory position. Chest X-Ray 11/27/24 12:20 IMPRESSION: 1. PICC tip at the superior cavoatrial junction. 2. Worsened airspace opacities in the lower lung zones, likely atelectasis. Discharge Plan Discharge Attending physician on discharge: Jerson Moran Consulting providers: Becky Smith Discharging Clinician: Jessica Sheriff Anticipated Discharge Date/Time: 12/02/24 14:01 Patient Disposition: Home, Self-Care Activity: may shower Diet: regular Wound Care Instructions: incision open to air Discharge Instructions: Surgery Discharge Instructions: * No heavy lifting more than 10-15 pounds. * Okay to shower over incision with mild soap and water and pat Steri-Strips dry, do not submerge in water for 2 weeks. Incision to be left open to air. * Walk at least 3-4 times daily. Stairs are okay. * No driving for 3 days or while on narcotic pain medication * Follow-up with Dr. Moran in 2 weeks. Our office will call you with time/date of appointment. ([phone]) Call sooner with surgical questions/concerns. * Pain medication prescription was sent electronically to the pharmacy * Call our office if you develop fever, abdominal pain, vomiting, or drainage/redness at your incisions. * Follow-up with Hematology in [address] Hernandez's office to schedule the appointment. Do Not Change PICC line Dressing For 24 Hours. Dressing Change Due on 12/03/24. Change Dressing and Clean Site With Soap and Water Every Day Until Site is Healed. Notify Provider For Redness, Swelling or Drainage at Site, Fever or Chills. Patient Instructions: Antibiotic Form Patient Language: Malagasy Stand Alone Forms: General Discharge Information Follow-up/Referrals: Junior Hernandez MD [Physician] - 2 Weeks Jerson Moran MD [Physician] - 2 Weeks Discharge Medications: New oxycodone-acetaminophen 5-325 mg Tablet 1 tablet PO Q6H PRN (Reason: Pain Rated 4-6) Qty: 20 0RF Continued sildenafil (pulm.hypertension) 20 mg tablet 20 mg PO DAILY PRN (Reason: sexual activity) Qty: 30 0RF Rx Instructions: administer 30 min prior to sexual activity Nicorette 2 mg 1 gum PO DIRECTED Date of admission: 11/19/24 18:41 Primary Care Provider: UNKNOWN,DOCTOR Admitting Provider: Jerson Moran Attending physician on admission: Jerson Moran Condition: Serious Quality VTE Prophylaxis VTE prophylaxis: mechanical ordered and pharmacologic ordered
[2024-12-02] MEDS: NEOMYCIN/POLYMYXIN/BACITRACIN OINTMENT PACKET 1 PACKET (14:30)
[2024-12-04 11:54] LABS: Albumin 2.2 g/dL (3.8-4.8); Alpha 1 Globulin 0.6 g/dL (0.2-0.3); Alpha 2 Globulin 0.8 g/dL (0.5-0.9); Beta 1 Globulin 0.4 g/dL (0.4-0.6); Gamma Globulin 0.3 g/dL (0.8-1.7)
== END 2024-12-02 16:18 | disposition home or self-care (01) | DRG 329 ==
LOC: ANHED 17:29 → ANH3MEDSUR 18:46
PROVIDERS: Internal Medicine Medical Oncology; Radiology Diagnostic Radiology; Surgery; Admitting Provider Surgery; Emergency Provider Physician Assistant; Visit Provider Nurse Practitioner Family
PROC: 0D9W30Z Drainage of Peritoneum with Drainage Device, Percutaneous Approach (ICD-10-PCS; principal; 2024-11-23 13:15)
PROC: 0DTN0ZZ Resection of Sigmoid Colon, Open Approach (ICD-10-PCS; CPT 44143; principal; 2024-11-24 15:00)
DX: K57.20 Diverticulitis of large intestine with perforation and abscess without bleeding (principal); K65.8 Other peritonitis; E44.0 Moderate protein-calorie malnutrition; K63.2 Fistula of intestine; D69.6 Thrombocytopenia, unspecified; D72.820 Lymphocytosis (symptomatic); F12.90 Cannabis use, unspecified, uncomplicated; N52.9 Male erectile dysfunction, unspecified; F51.04 Psychophysiologic insomnia; Z87.891 Personal history of nicotine dependence; Z68.28 Body mass index [BMI] 28.0-28.9, adult
CPT/HCPCS: 36415; 36569; 71045; 74176; 74177; 75989; 80048; 80053; 81001; 82948; 83605; 83690; 83735; 84100; 84155; 84165; 84466; 84478; 85025; 85027; 85610; 85730; 86140; 86850; 86900; 86901; 87040; 87070; 87075; 87181; 87186; 87205; 88307; 93005; A9270; C1729; C1769; G0378; J0690; J1100; J1171; J1650; J1741; J2003; J2060; J2250; J2270; J2405; J2543; J2704; J3010; J3480; J7030; J7040; J7120; Q9967

== ENCOUNTER 2024-12-29 14:53 | Outpatient (CLI) | payer OTHER, SELFPAY ==
--- OUTSIDE RECORDS SUMMARY | 2024-12-29 14:58 | XMS_ITS | Clinical Summary ---
Author Organization [facility] Fernando Reynoso Address [address] [place] [address] Care Team Providers Care Director Digital Communications Name Role Phone Unavailable Primary Care Provider Unavailabl e Allergies No known active allergies Medications No known medications Active Problems No known active problems Encounters Date Type Department Care Team Description 12/29/2024 1:30 PM DISPATCH MACHINE RUNNER Office Visit [facility] Oncology and Hematology - [place] [address] [address] Junior Hernanedz MD Lymphocytosis (Primary Dx) from Last 3 Months Family History Medical History Relation Name Comments No Known Problems Brother No Known Problems Child 1 No Known Problems Child 2 No Known Problems Child 3 Heart Disease Father No Known Problems Mother No Known Problems Sister Relation Name Status Comments Brother Alive Child 1 Alive Child 2 Alive Child 3 Alive Father Mother Alive Sister Alive Social History Tobacco Use Types Packs/Day Years Used Date Smoking Tobacco: Never Smokeless Tobacco: Never Alcohol Use Standard Drinks/Week Comments Yes 0 (1 standard drink = 0.6 oz pur e alcohol) Occasionally Sex and Gender Information Value Date Recorded Sex Assigned at Not on file Legal Sex Male 3:43 PM DISPATCH MACHINE RUNNER Gender Identity Not on file Sexual Orientation Not on file Last Filed Vital Signs Vital Sign Reading Time Taken Comments Blood Pressure 127/82 12/29/2024 1:51 PM DISPATCH MACHINE RUNNER Pulse 85 12/29/2024 1:49 PM DISPATCH MACHINE RUNNER Temperature 36.8 ??C (98.3 ??F) 12/29/2024 1:49 PM CS T Respiratory Rate 17 12/29/2024 1:49 PM DISPATCH MACHINE RUNNER Oxygen Saturation 97% 12/29/2024 1:49 PM DISPATCH MACHINE RUNNER Inhaled Oxygen Concentration - - Weight 84.3 kg (185 lb 12.8 oz) 12/29/2024 1:49 PM DISPATCH MACHINE RUNNER Height 177.8 cm (5' 10 ) 12/29/2024 1:49 PM DISPATCH MACHINE RUNNER Body Mass Index 26.66 12/29/2024 1:49 PM DISPATCH MACHINE RUNNER Plan of Treatment Upcoming Encounters Date Type Department Care Team (Late st Contact Info) Description 01/18/2025 4:30 PM DISPATCH MACHINE RUNNER Telephone Check Up [facility] Oncology and Hematology - [place] [address] [facility] [address] [place] [address] Junior Hernandez MD [address] [facility] [address] [place] [address] Health Maintenance Due Date Last Done Comments DTAP/TDAP/TD VACCINES (1 - Tdap) 1990 HEPATITIS B VACCINES (1 of 3 - 19+ 3-dose series) 11/1989 COLORECTAL SCREENING 02/24/2016 Colorectal Cancer Screening 02/24/2016 FIT-DNA Q 3 years 02/24/2016 FIT/FOBT Q 1 year 02/24/2016 Flex Sig/CT Colonography Q 5 years 02/24/2016 ZOSTER VACCINE (1 of 2) 2021 INFLUENZA VACCINE (#1) 2024 Preventative Visit- Commercial 11/25/2024 Insurance
--- OUTSIDE RECORDS SUMMARY | 2024-12-29 14:58 | XMS_ITS | Encounter Summary ---
Author Organization [facility] [employer] Address [address] [place] [address] Care Team Providers Care Bus Steward Name Role Phone Unavailable Primary Care Provider Unavailabl e Encounter Details Date Type Department Care Team ([facility] st Contact Info) Description 12/29/2024 1:30 PM BETTING AGENCY MANAGER Office Visit [facility] Oncology and Hematology - Branden [address] [facility] [address] [place] [address] Junior Hernandez MD [address] [facility] [address] [place] [address] Lymphocytosis (Primary Dx) Social History Tobacco Use Types Packs/Day Years Used Date Smoking Tobacco: Never Smokeless Tobacco: Never Alcohol Use Standard Drinks/Week Comments Yes 0 (1 standard drink = 0.6 oz pur e alcohol) Occasionally Sex and Gender Information Value Date Recorded Sex Assigned at Not on file Legal Sex Male 3:43 PM BETTING AGENCY MANAGER Gender Identity Not on file Sexual Orientation Not on file documented as of this encounter Last Filed Vital Signs Vital Sign Reading Time Taken Comments Blood Pressure 127/82 12/29/2024 1:51 PM BETTING AGENCY MANAGER Pulse 85 12/29/2024 1:49 PM BETTING AGENCY MANAGER Temperature 36.8 ??C (98.3 ??F) 12/29/2024 1:49 PM CS T Respiratory Rate 17 12/29/2024 1:49 PM BETTING AGENCY MANAGER Oxygen Saturation 97% 12/29/2024 1:49 PM BETTING AGENCY MANAGER Inhaled Oxygen Concentration - - Weight 84.3 kg (185 lb 12.8 oz) 12/29/2024 1:49 PM BETTING AGENCY MANAGER Height 177.8 cm (5' 10 ) 12/29/2024 1:49 PM BETTING AGENCY MANAGER Body Mass Index 26.66 12/29/2024 1:49 PM BETTING AGENCY MANAGER documented in this encounter Plan of Treatment Upcoming Encounters Date Type Department Care Team (Late st Contact Info) Description 01/18/2025 4:30 PM BETTING AGENCY MANAGER Telephone Check Up [facility] Oncology and Hematology - [place] [address] [facility] [address] [place] [address] Junior Hernandez MD [address] [facility] [address] [place] [address] Scheduled Orders Name Type Priority Associated Diagnoses Orde r Schedule CBC WITH DIFFERENTIAL Lab Stat Lymphocytosis Expected: 12/29/2024, Expires: 12/29/2025 COMPREHENSIVE METABOLIC PANEL Lab Stat Lymphocytosis Expected: 12/29/2024, Expires: 12/29/2025 FLOW CYTOMETRY PANEL Lab Routine Lymphocytosis Expected: 12/29/2024, Expires: 12/29/2025 LACTATE DEHYDROGENASE Lab Routine Lymphocytosis Expected: 12/29/2024, Expires: 12/29/2025 documented as of this encounter Visit Diagnoses Diagnosis Lymphocytosis- Primary Lymphocytosis (symptomatic) documented in this encounter
[2024-12-29 15:09] LABS: Basophils Absolute Auto 0.1 K/mm3 (0.0-0.1); Basophils Percent Auto 0.3 % (0.2-1.2); Eosinophils Absolute Auto 0.3 K/mm3 (0-0.3); Hematocrit 45.9 % (42.0-52.0); Immature Granulocyte Absolute 0.03 K/mm3 (0.00-0.031); Immature Granulocyte Percent A 0.1 % (0-0.5); Lymphocytes Absolute Auto 21.37 K/mm3 (0.9-3.2); Lymphocytes Percent Auto 82.1 % (18.3-44.2); Mean Corpuscular HGB Conc 32.7 g/dl (32-36); Mean Corpuscular Hemoglobin 28.7 pg (26-34); Mean Corpuscular Volume 87.8 fl (80-100); Mean Platelet Volume 10.7 fl (7.4-10.4); Monocytes Absolute Auto 0.6 K/mm3 (0.1-0.6); Monocytes Percent Auto 2.2 % (2.6-8.5); Neutrophils Absolute Auto 3.7 K/mm3 (1.3-6.7); Neutrophils Percent Auto 14.3 % (45.5-73.1); Platelet Count Result 134 k/mm3 (150-375); Red Blood Count 5.23 M/mm3 (4.6-6.20); Red Cell Distribution Width 13.9 % (11.5-14.5)
[2024-12-29 15:19] LABS: Platelet Estimate Decreased (Adequate); Schistocytes None Seen
[2024-12-29 15:20] LABS: Atypical Lymphocytes Present
[2024-12-29 16:49] LABS: Alanine Aminotransferase 25 U/L (6-50); Albumin Level 4.8 g/dL (3.5-5.1); Alkaline Phosphatase 104 U/L (38-126); Anion Gap 11 mmol/L (4-12); Aspartate Amino Transferase 69 U/L (17-59); Bilirubin,Total 0.7 mg/dL (0.2-1.3); Blood Urea Nitrogen 17 mg/dL (9-20); Carbon Dioxide 24 mmol/L (22-30); Chloride 104 mmol/L (98-107); Estimated Glomerular Filt Rate > 60; Glucose 97 mg/dL (65-110); Lactate Dehydrogenase 168 U/L (120-246); Sodium 139 mmol/L (137-145)
== END 2024-12-29 14:54 | disposition home or self-care (01) ==
LOC: ANHLAB 14:56
PROVIDERS: PCP Family Medicine; Visit Provider Internal Medicine Hematology & Oncology
DX: D72.820 Lymphocytosis (symptomatic) (principal)
CPT/HCPCS: 36415; 80053; 83615; 85025; 88184

== ENCOUNTER 2025-01-22 10:20 | Outpatient (CLI) | payer OTHER, SELFPAY | END 2025-01-22 10:21 | disposition home or self-care (01) | LOC: ANHIMG 10:21 | PROVIDERS: PCP Nurse Practitioner; Visit Provider Internal Medicine Hematology & Oncology | DX: C91.10 Chronic lymphocytic leukemia of B-cell type not having achieved remission (principal) | CPT/HCPCS: 70491; 71260; Q9967 ==

== ENCOUNTER 2025-01-27 11:03 | Outpatient (CLI) | payer OTHER, SELFPAY ==
--- OUTSIDE RECORDS SUMMARY | 2025-01-27 12:43 | XMS_ITS | Clinical Summary ---
Author Organization [facility] Phierickeri Reynoso Address [address] [place] [address] Care Team Providers Care Polisher Sand Name Role Phone Unavailable Primary Care Provider Unavailabl e Allergies No known active allergies Medications No known medications Active Problems No known active problems Encounters Date Type Department Care Team Description 01/26/2025 Abstract [facility] Oncology and [facility] [address] [place] [id number] Junior Hernandez MD 01/25/2025 Orders Only [facility] Oncology [facility] [address] [place] [address] Junior Hernandez MD 01/19/2025 External Device Data STL ABSTRACTION Provider, Abstract 01/18/2025 4:30 PM SERVICE OPERATOR Telephone Check Up [facility] Oncology [facility] [address] [place] [address] Junior Hernandez MD CLL (chronic lymphocytic leukemia) ([facility]/HCC) (Primary Dx) 01/05/2025 External Device Data STL ABSTRACTION Provider, Abstract 01/05/2025 External Device Data STL ABSTRACTION Provider, Abstract 01/05/2025 External Device Data STL ABSTRACTION Provider, Abstract 12/29/2024 1:30 PM SERVICE OPERATOR Office Visit [facility] Oncology and Hematology [facility] [address] [place] [phone] Junior Hernandez MD Lymphocytosis (Primary Dx) from Last 3 [...] on file Legal Sex Male 3:43 PM SERVICE OPERATOR Gender Identity Not on file Sexual Orientation Not on file Last Filed Vital Signs Vital Sign Reading Time Taken Comments Blood Pressure 127/82 12/29/2024 1:51 PM SERVICE OPERATOR Pulse 85 12/29/2024 1:49 PM SERVICE OPERATOR Temperature 36.8 C (98.3 F) 12/29/2024 1:49 PM SERVICE OPERATOR Respiratory Rate 17 12/29/2024 1:49 PM SERVICE OPERATOR Oxygen Saturation 97% 12/29/2024 1:49 PM SERVICE OPERATOR Inhaled Oxygen Concentration - - Weight 84.3 kg (185 lb 12.8 oz) 12/29/2024 1:49 PM SERVICE OPERATOR Height 177.8 cm (5' 10 ) 12/29/2024 1:49 PM SERVICE OPERATOR Body Mass Index 26.66 12/29/2024 1:49 PM SERVICE OPERATOR Plan of Treatment Upcoming Encounters Date Type Department Care Team (Late st Contact Info) Description 02/10/2025 1:00 PM CDT Office Visit [facility] Oncology and Hematology - [place] [address] [facility] [address] [place] [address] Junior Hernandez MD [address] [facility] [address] [place] [address] Health Maintenance Due Date Last Done Comments Pre-Diabetes and Diabetes Screening 1971 DTAP/TDAP/TD VACCINES (1 - Tdap) 1990 HEPATITIS B VACCINES (1 of 3 - 19+ 3-dose series) 11/1989 COLORECTAL SCREENING 02/24/2016 Colorectal Cancer Screening 02/24/2016 FIT-DNA Q 3 years 02/24/2016 FIT/FOBT Q 1 year 02/24/2016 Flex Sig/CT Colonography Q 5 years 02/24/2016 ZOSTER VACCINE (1 of 2) 2021 INFLUENZA VACCINE (#1) 2024 Preventative Visit- Commercial 11/25/2024 Procedures Procedure Name Priority Date/Time Associated Diagnosis Comments CT SOFT TISSUE NECK CHEST W CONT Routine 01/22/2025 11:05 AM SERVICE OPERATOR from Last 3 Months Results * CT SOFT TISSUE NECK CHEST W CONT (01/22/2025 11:05 AM SERVICE OPERATOR) Anatomical Region Laterality Modality Neck Other us Junior Hernandez MD CT ORDERABLES Final Result from Last [address] [facility] [id number] [place] [address]
--- OUTSIDE RECORDS SUMMARY | 2025-01-27 12:43 | XMS_ITS | Encounter Summary ---
Author Organization [facility] Address [address] [place] [address] Care Team Providers Care Wealth Management Manager Name Role Phone Unavailable Primary Care Provider Unavailabl e Encounter Details Date Type Department Care Team (Late Contact Info) Description 01/26/2025 Abstract [facility] Oncology and Hematology - [place] [address] [place] [address] Junior Hernandez MD [facility] [address] [place] [address] Social History Tobacco Use Types Packs/Day Years Used Date Smoking Tobacco: Never Smokeless Tobacco: Never Alcohol Use Standard Drinks/Week Comments Yes 0 (1 standard drink = 0.6 oz pur e alcohol) Occasionally Sex and Gender Information Value Date Recorded Sex Assigned at Not on file Legal Sex Male 3:43 PM WOOD FORM BUILDER Gender Identity Not on file Sexual Orientation Not on file documented as of this encounter Plan of Treatment Upcoming Encounters Date Type Department Care Team (Late Contact Info) Description 02/10/2025 1:00 PM CDT Office Visit [facility] Oncology and Hematology - [place] [address] [place] [address] Junior Hernandez MD [address] [place] [address] documented as of this encounter Visit Diagnoses Not on filedocumented in this encounter
--- OUTSIDE RECORDS SUMMARY | 2025-01-27 12:43 | XMS_ITS | Encounter Summary ---
Author Organization [facility] Maria Antonia [facility] Address [address] [place] [address] Care Team Providers Care Plant Technician Name Role Phone Unavailable Primary Care Provider Unavailabl e Encounter Details Date Type Department Care Team ([facility] Contact Info) Description 01/25/[address] [facility] Oncology and Hematology [facility] [address] [place] [address] Junior Hernandez MD [facility] [address] [place] [address] Social History Tobacco Use Types Packs/Day Years Used Date Smoking Tobacco: Never Smokeless Tobacco: Never Alcohol Use Standard Drinks/Week Comments Yes 0 (1 standard drink = 0.6 oz pur e alcohol) Occasionally Sex and Gender Information Value Date Recorded Sex Assigned at Not on file Legal Sex Male 3:43 PM CASING OPERATOR Gender Identity Not on file Sexual Orientation Not on file documented as of this encounter Plan of Treatment Upcoming Encounters Date Type Department Care Team (Late Contact Info) Description 02/10/2025 1:00 PM CDT Office Visit [facility] Oncology and Hematology - [place] [address] [place] [address] Junior Hernandez MD [facility] [address] [place] [address] documented as of this encounter Procedures Procedure Name Priority Date/Time Associated Diagnosis Comments CT SOFT TISSUE NECK CHEST W CONT Routine 01/22/2025 11:05 AM CASING OPERATOR documented in this encounter Results * CT SOFT TISSUE NECK CHEST W CONT (01/22/2025 11:05 AM CASING OPERATOR) Anatomical Region Laterality Modality Neck Other Junior Hernandez MD CT ORDERABLES Final Result documented in this encounter Visit Diagnoses Not on filedocumented in this encounter
== END 2025-01-27 11:04 | disposition home or self-care (01) ==
LOC: ANHLAB 11:04
PROVIDERS: PCP Nurse Practitioner; Visit Provider Internal Medicine Hematology & Oncology
DX: C91.10 Chronic lymphocytic leukemia of B-cell type not having achieved remission (principal)
CPT/HCPCS: 88365

== ENCOUNTER 2025-02-10 13:33 | Outpatient (CLI) | payer OTHER, SELFPAY ==
--- OUTSIDE RECORDS SUMMARY | 2025-02-10 15:03 | XMS_ITS | Clinical Summary ---
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 Name Role Phone Unavailable Primary Care Provider Unavailabl e Allergies No known active allergies Medications No known medications Active Problems No known active problems Encounters Date Type Department Care Team Description 02/10/2025 1:00 PM CDT Office Visit [facility] Oncology and Hematology - [place] [address] [place] [phone] Junior Hernandez MD CLL (chronic lymphocytic leukemia) (CMS/HCC) (Primary Dx); Chronic anemia 02/02/2025 External Device Data STL ABSTRACTION Provider, Abstract 02/02/2025 External Device Data STL ABSTRACTION Provider, Abstract 02/02/2025 Orders Only [facility] Oncology and Hematology - [place] [address] [place] [phone] Junior Hernandez MD 01/30/2025 External Device Data STL ABSTRACTION Provider, Abstract 01/29/2025 External Device Data STL ABSTRACTION Provider, Abstract 01/26/2025 Abstract [facility] Oncology and Hematology - [place] [address] [place] [phone] Junior Hernandez MD 01/25/2025 Orders Only [facility] Oncology and Hematology - [place] [address] [place] [phone] Junior Hernandez MD 01/19/2025 External Device Data STL ABSTRACTION Provider, Abstract 01/18/2025 4:30 PM INSIDE BARREL POLISHER Telephone Check Up [facility] Oncology and Hematology [facility] [address] [place] [address] Junior Hernandez MD CLL (chronic lymphocytic leukemia) (CMS/HCC) (Primary Dx) 01/05/2025 External Device Data STL ABSTRACTION Provider, Abstract 01/05/2025 External Device Data STL ABSTRACTION Provider, Abstract 01/05/2025 External Device Data STL ABSTRACTION Provider, Abstract 12/29/2024 1:30 PM INSIDE BARREL POLISHER Office Visit [facility] Oncology and Hematology [facility] [address] [place] [address] Junior Hernandez MD Lymphocytosis (Primary Dx) from [...] Date Smoking Tobacco: Never Smokeless Tobacco: Never Tobacco Cessation:Counseling Given: Not Answered Alcohol Use Standard Drinks/Week Comments Yes 0 (1 standard drink = 0.6 oz pur e alcohol) Occasionally Sex and Gender Information Value Date Recorded Sex Assigned at Not on file Legal Sex Male 3:43 PM INSIDE BARREL POLISHER Gender Identity Not on file Sexual Orientation Not on file Last Filed Vital Signs Vital Sign Reading Time Taken Comments Blood Pressure 137/84 02/10/2025 1:04 PM CDT Pulse 88 02/10/2025 1:04 PM CDT Temperature 36.4 C (97.5 F) 02/10/2025 1:04 PM CDT Respiratory Rate 16 02/10/2025 1:04 PM CDT Oxygen Saturation 97% 02/10/2025 1:04 PM CDT Inhaled Oxygen Concentration - - Weight 86.4 kg (190 lb 6.4 oz) 02/10/2025 1:04 P M CDT Height 177.8 cm (5' 10 ) 12/29/2024 1:49 PM INSIDE BARREL POLISHER Body Mass Index 27.32 12/29/2024 1:49 PM INSIDE BARREL POLISHER Plan of Treatment Upcoming Encounters Date Type Department Care Team (Late st Contact Info) Description 02/18/2025 4:00 PM CDT Telephone Check Up [facility] Oncology and Hematology [facility] [address] [place] [phone] Junior Hernandez MD [address] [facility] [employer] [address] [place] [phone] 05/19/2025 1:15 PM CDT Office Visit [facility] Oncology and Hematology [place] [address] [place] [phone] Junior Hernandez MD [address] [facility] [employer] [address] [place] [address] Health Maintenance Due Date Last [...] Procedure Name Priority Date/Time Associated Diagnosis Comments B-CELL LYMPHOMA, FISH Routine 01/27/2025 2:18 PM INSIDE BARREL POLISHER CT SOFT TISSUE NECK CHEST W CONT Routine 01/22/2025 11:05 AM INSIDE BARREL POLISHER from Last 3 Months Results * B-CELL LYMPHOMA, FISH (01/27/2025 2:18 PM INSIDE BARREL POLISHER) Junior Hernandez MD BODY FLUIDS AND STOOLS Final Re sult * CT SOFT TISSUE NECK CHEST W CONT (01/22/2025 11:05 AM INSIDE BARREL POLISHER) Anatomical Region Laterality Modality Neck Computed Tomogra phy Junior Hernandez MD CT ORDERABLES Final Result from Last 3 Months Insurance [facility] CHOICE [id number] [place] [id number]
--- OUTSIDE RECORDS SUMMARY | 2025-02-10 15:03 | XMS_ITS | Encounter Summary ---
Author Organization [facility] Address [address] [place] [address] Care Team Providers Care Manager Of Distribution Name Role Phone Unavailable Primary Care Provider Unavailabl e Reason for Visit * Reason Comments Follow Up Cancer Encounter Details Date Type Department Care Team ([facility] st Contact Info) Description 02/10/2025 1:00 PM CDT Office Visit [facility] Oncology and Hematology - [place] [address] [place] [address] [facility] [address] [place] [address] Junior Hernandez MD [address] [facility] [address] [place] [address] CLL (chronic lymphocytic leukemia) (CMS/HCC) (Primary Dx); Chronic anemia Social History Tobacco Use Types Packs/Day Years Used Date Smoking Tobacco: Never Smokeless Tobacco: Never Tobacco Cessation:Counseling Given: Not Answered Alcohol Use Standard Drinks/Week Comments Yes 0 (1 standard drink = 0.6 oz pur e alcohol) Occasionally Sex and Gender Information Value Date Recorded Sex Assigned at Not on file Legal Sex Male 3:43 PM 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 Sex: male : 1970 DIAGNOSIS Chronic lymphocytic leukemia/SLL status post flow cytometric analysis done on December 30, 2024. CURRENT TREATMENT Expectant TREATMENT HISTORY SUBJECTIVE Patient came to the office for follow-up visit. He denies any night sweats fever chills and weight loss. Denies any new lumps bumps and lymphadenopathy. No bleeding and bruising. Weight and appetite stable. No other new complaints. Review of system Constitutional: Patient did not mention fevers, sweats, fatigue, malaise, weight loss HEENT: Patient did not mention sinus congestion, hearing or vision problems Respiratory: Patient did not mention cough, dyspnea, wheeze Cardiovascular: Patient did not mention chest pain, exertional chest pressure/discomfort, nausea, syncope, shortness of breath GI: Patient did not mention constipation, diarrhea, dsyphagia, reflux symptoms, vomiting, melena : Patient did not mention dysuria, frequency, incontinence, urgency Integumentary system: no lymphadenopathy, sweats, flushing Musculoskeletal: Patient not mention: myalgia, arthralgia Neurological: Patient did not mention blurry or disturbed vision, numbness/weakness, dizziness Skin: No lumps, bumps or rashes. 12 point review of system was reviewed Objective: Vital signs in last 24 hours: As per nursing note Exam: HEENT: Atraumatic, external ears normal, nose normal, oropharynx moist, no pharyngeal exudates. no sinus tenderness Neck- normal range of motion, no tenderness, supple Respiratory: No respiratory distress, normal breath sounds, no rales, no wheezing Cardiovascular: Normal rate, normal rhythm, no murmurs, no gallops, no rubs GI: Soft, nondistended, normal bowel sounds, nontender, no splenomegaly, no hepatomegaly, no mass, no rebound, no guarding : No costovertebral angle tenderness Musculoskeletal: No edema, no tenderness, no deformities. Back- no tenderness Integument: Well hydrated, no rash, Digits and nails inspection normal Lymphatic: No lymphadenopathy noted Neurologic: Alert & oriented x 3, CN 2-12 normal, normal motor function, normal sensory function, no focal deficits noted Exam as above PATH LABS @IMAGEIMP@ Assessment: Plan: There are no active problems to display for this patient. Chronic lymphocytic leukemia/SLL status post flow cytometric analysis done on December 30, 2024. Flow cytometry showed 69% CD5 positive B-cell immunophenotypic features consistent with CLL/SLL. FISH panel for high-grade lymphoma leukemia showed no evidence of Bcl-2, BCL6 or MYC gene rearrangement. CT scan neck and chest showed no evidence of lymphadenopathy. There was borderline mild splenomegaly. There is no indication to treat CLL. Will continue to observe and see him back in 3 months. Anemia. I will check iron studies and vitamin B12 level today and phone visit in 1 week. 02/10/2025 Junior Hernandez MD documented in this encounter Plan of Treatment Upcoming Encounters Date Type Department Care Team (Late st Contact Info) Description 02/18/2025 4:00 PM CDT Telephone Check Up [facility] Oncology and Hematology [facility] [place] [address] [place] [phone] Junior Hernandez MD [address] [facility] [email or web address] [address] [place] [phone] 05/19/2025 1:15 PM CDT Office Visit [facility] Oncology and Hematology [facility] [address] [place] [phone] Junior Hernandez MD [address] [facility] [address] [place] [phone] Scheduled Orders Name Type Priority Associated Diagnoses Orde r Schedule CBC WITH DIFFERENTIAL Lab Stat CLL (chronic lymphocytic leukemia) (CMS/HCC) Expected: 05/05/2025, Expires: 02/10/2026 COMPREHENSIVE METABOLIC PANEL Lab Stat CLL (chronic lymphocytic leukemia) ([facility]) Expected: 05/05/2025, Expires: 02/10/2026 LACTATE DEHYDROGENASE Lab Routine CLL (chronic lymphocytic leukemia) ([facility]) Expected: 05/05/2025, Expires: 02/10/2026 FERRITIN Lab Routine Chronic anemia Expected: 02/10/2025, Expires: 02/10/2026 IRON, TIBC, AND PERCENT SATURATION Lab Routine Chronic anemia Expected: 02/10/2025, Expires: 02/10/2026 VITAMIN B12 AND FOLATE Lab Routine Chronic anemia Expected: 02/10/2025, Expires: 02/10/2026 METHYLMALONIC ACID Lab Routine Chronic anemia Expected: 02/10/2025, Expires: 02/10/2026 TRANSFERRIN RECEPTOR TFR SOLUBLE Lab Routine Chronic anemia Expected: 02/10/2025, Expires: 02/10/2026 LACTATE DEHYDROGENASE Lab Routine Chronic anemia Expected: 02/10/2025, Expires: 02/10/2026 documented as of this encounter Visit Diagnoses Diagnosis CLL (chronic lymphocytic leukemia) ([facility])- Primary Chronic lymphoid leukemia, without mention of having achieved remission Chronic anemia Anemia, unspecified documented in this encounter
[2025-02-10 17:14] LABS: Iron 74 ug/dL (49-181)
[2025-02-10 17:25] LABS: Percent Iron Saturation 22 % (20-50)
[2025-02-10 17:42] LABS: Lactate Dehydrogenase 156 U/L (120-246)
[2025-02-10 17:59] LABS: Cholesterol 199 mg/dL (0-200); HDL Direct 70 mg/dL; Triglycerides 100 mg/dL (<150)
[2025-02-10 18:11] LABS: LDL Cholesterol Direct 88 mg/dL
[2025-02-10 18:32] LABS: Prostate Specific Antigen 1.6 ng/mL (< OR = 4.0)
[2025-02-10 18:50] LABS: Folic Acid 12.6 ng/mL (2.76->20)
== END 2025-02-10 13:34 | disposition home or self-care (01) ==
LOC: ANHLAB 13:34
PROVIDERS: PCP Nurse Practitioner; Referring Provider Nurse Practitioner; Visit Provider Internal Medicine Hematology & Oncology
DX: Z12.5 Encounter for screening for malignant neoplasm of prostate (principal); Z13.220 Encounter for screening for lipoid disorders; D64.9 Anemia, unspecified
CPT/HCPCS: 36415; 80061; 82607; 82728; 82746; 83540; 83550; 83615; 83921; 84153; 84238; G0103

== ENCOUNTER 2025-05-19 10:13 | Outpatient (CLI) | payer OTHER, SELFPAY ==
[2025-05-19 10:35] LABS: Basophils Absolute Auto 0.1 K/mm3 (0.0-0.1); Basophils Percent Auto 0.4 % (0.2-1.2); Eosinophils Absolute Auto 0.1 K/mm3 (0-0.3); Eosinophils Percent Auto 0.4 % (0-4.4); Hematocrit 48.3 % (42.0-52.0); Hemoglobin 16.2 g/dL (14.0-18.0); Immature Granulocyte Absolute 0.02 K/mm3 (0.00-0.031); Immature Granulocyte Percent A 0.1 % (0-0.5); Immature Platelet Fraction Pct 7.6 % (0.9-11.2); Lymphocytes Absolute Auto 18.86 K/mm3 (0.9-3.2); Mean Corpuscular HGB Conc 33.5 g/dl (32-36); Mean Corpuscular Hemoglobin 29.7 pg (26-34); Mean Corpuscular Volume 88.5 fl (80-100); Monocytes Absolute Auto 0.5 K/mm3 (0.1-0.6); Monocytes Percent Auto 2.3 % (2.6-8.5); Neutrophils Absolute Auto 3.1 K/mm3 (1.3-6.7); Neutrophils Percent Auto 13.8 % (45.5-73.1); Nucleated Red Blood Cells Perc 0.1 % (0.0-0.2); Platelet Count Result 126 k/mm3 (150-375); Red Blood Count 5.46 M/mm3 (4.6-6.20); Red Cell Distribution Width 14.2 % (11.5-14.5); White Blood Count 22.7 K/mm3 (4.5-10.0)
[2025-05-19 15:57] LABS: Iron 107 ug/dL (49-181)
[2025-05-19 16:07] LABS: Percent Iron Saturation 30 % (20-50)
[2025-05-19 17:06] LABS: Folic Acid 14.6 ng/mL (2.76->20)
[2025-05-22 13:48] LABS: Soluble Transferrin Receptor. 1.53 mg/L (0.76-1.76)
== END 2025-05-19 10:14 | disposition home or self-care (01) ==
LOC: ANHLAB 10:14
PROVIDERS: PCP Nurse Practitioner; Visit Provider Internal Medicine Hematology & Oncology
DX: C91.10 Chronic lymphocytic leukemia of B-cell type not having achieved remission (principal); D64.9 Anemia, unspecified
CPT/HCPCS: 36415; 82607; 82728; 82746; 83540; 83550; 84238; 85025; 85055

== ENCOUNTER 2025-08-31 12:08 | Outpatient (CLI) | payer OTHER, SELFPAY ==
[2025-08-31 12:23] LABS: Hematocrit 46.2 % (42.0-52.0); Hemoglobin 15.5 g/dL (14.0-18.0); Immature Granulocyte Percent A 0.1 % (0-0.5); Immature Platelet Fraction Pct 6.4 % (0.9-11.2); Lymphocytes Absolute Auto 18.60 K/mm3 (0.9-3.2); Mean Corpuscular HGB Conc 33.5 g/dl (32-36); Mean Corpuscular Hemoglobin 30.1 pg (26-34); Mean Corpuscular Volume 89.7 fl (80-100); Nucleated Red Blood Cells Absolute Auto 0.000 K/mm3 (0.0-0.012); Nucleated Red Blood Cells Perc 0.0 % (0.0-0.2); Platelet Count Result 130 k/mm3 (150-375); Red Blood Count 5.15 M/mm3 (4.6-6.20); White Blood Count 23.1 K/mm3 (4.5-10.0)
--- OUTSIDE RECORDS SUMMARY | 2025-08-31 13:09 | XMS_ITS | Clinical Summary ---
Author Organization [facility] Fernando Reynoso Address [address] [place] [address] Care Team Providers Care 911 Emergency Services Dispatcher Name Role Phone Unavailable Primary Care Provider Unavailabl e Allergies No known active allergies Medications No known medications Active Problems No known active problems Encounters Date Type Department Care Team Description 06/01/2025 4:30 PM CDT Telephone Check Up [facility] Oncology and Hematology - [place] [address] [place] [address] [address] Junior Hernandez MD Chronic anemia (Primary Dx) from Last 3 Months Family [...] on file Legal Sex Male 3:43 PM 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 OPERATOR Gender Identity Not on file Sexual [...] P M CDT Height 177.8 cm (5' 10) 12/29/2024 1:49 PM SQUEEGEE OPERATOR Body Mass Index 27.32 12/29/2024 1:49 PM SQUEEGEE OPERATOR Plan of Treatment Upcoming Encounters Date Type Department Care Team (Late st Contact Info) Description 09/06/2025 11:15 AM CDT Office Visit [facility] Oncology and Hematology - [place] [address] [facility] [address] [place] [address] Junior Hernandez MD [address] [facility] [address] [place] [address] Health Maintenance Due Date Last Done Comments Pre-Diabetes and Diabetes Screening 1970 DTAP/TDAP/TD VACCINES (1 - Tdap) 1990 HEPATITIS B VACCINES (1 of 3 - 19+ 3-dose series) 11/1989 ZOSTER VACCINE (1 of 2) 1990 COLORECTAL SCREENING 02/24/2016 Colorectal Cancer Screening 02/24/2016 FIT-DNA Q 3 years 02/24/2016 FIT/FOBT Q 1 year 02/24/2016 Flex Sig/CT Colonography Q 5 years 02/24/2016 Preventative Visit- Commercial 11/25/2024 INFLUENZA VACCINE (#1) 2025 Insurance [facility] CHOICE [id number]
[2025-08-31 16:20] LABS: Iron 109 ug/dL (49-181)
[2025-08-31 16:23] LABS: Anion Gap 10 mmol/L (4-12); Blood Urea Nitrogen 15 mg/dL (9-20); Calcium 9.4 mg/dL (8.4-10.2); Carbon Dioxide 26 mmol/L (22-30); Chloride 102 mmol/L (98-107); Estimated Glomerular Filt Rate > 60; Glucose 122 mg/dL (65-110); Potassium 3.9 mmol/L (3.4-5.0); Sodium 138 mmol/L (137-145)
[2025-08-31 16:31] LABS: Percent Iron Saturation 36 % (20-50)
[2025-08-31 17:02] LABS: Ferritin 53.60 ng/mL (11.1-264)
[2025-08-31 17:35] LABS: Vitamin B12 591.0 pg/mL (239-931)
== END 2025-08-31 12:09 | disposition home or self-care (01) ==
LOC: ANHLAB 12:10
PROVIDERS: PCP Nurse Practitioner; Visit Provider Internal Medicine Hematology & Oncology
DX: D64.9 Anemia, unspecified (principal)
CPT/HCPCS: 36415; 80048; 82607; 82728; 82746; 83540; 83550; 85025; 85055